=== PATIENT | female | born 1985 | race Caucasian/White ===

== ENCOUNTER → 2017-12-16 16:19 | Outpatient (CLI) | payer OTHER, SELFPAY ==
[2017-12-16 18:10] LABS: Mucous, Urine 0 SEEN /hpf (<or=2+)
[2017-12-16 18:42] LABS: Color, Urine Yellow (Yellow); Glucose, Dipstick Normal (Normal); Ketone-Dipstick Negative (Negative); Leukocyte Esterase-Dipstick 100 /ul (Negative); Nitrite-Dipstick Positive (Negative); Occult Blood-Urine 50 /ul (Negative); Protein-Dipstick Negative (Negative); Urine Bilirubin Dipstick Negative (Negative); Urine Clarity Cloudy (Clear); Urine Urobilinogen Normal (Normal); Urine pH 6.5 (5.0 - 8.0)
[2017-12-16 18:49] LABS: Bacteria 2+ /hpf (None Seen)
[2017-12-16 18:50] LABS: Squamous Epithelial Cells - UA 0-5 SEEN /hpf (5-10); White Blood Cells 10-25 SEEN /hpf (0-5)
[2017-12-16 18:51] LABS: Red Blood Cells-Urine 0-5 SEEN /hpf (0-5)
== END ==
PROVIDERS: Family Provider Family Medicine; PCP Family Medicine; Visit Provider Physician Assistant Surgical
DX: R35.0 Frequency of micturition (principal)
CPT/HCPCS: 81001; 87077; 87086; 87088; 87186

== ENCOUNTER → 2018-02-27 11:52 | Outpatient (CLI) | payer OTHER, SELFPAY ==
[2018-02-27 17:10] LABS: Thyroid Stim Hormone (TSH) 0.75 uIU/mL (0.358-3.74)
== END ==
PROVIDERS: Family Provider Family Medicine; PCP Family Medicine; Visit Provider Family Medicine
DX: F41.9 Anxiety disorder, unspecified (principal); F40.01 Agoraphobia with panic disorder
CPT/HCPCS: 36415; 84439; 84443

== ENCOUNTER 2018-12-11 18:58 | Emergency (ER) | payer OTHER, SELFPAY ==
[2018-12-11 18:58] VITALS: BP 115/78; PULSE 85; RESP 15; TEMP 37.8; O2SAT 98; BMI 28.8
--- NOTE | 2018-12-11 21:00 | CT_ITS ---
STUDY: CT ABDOMEN AND PELVIS WITHOUT CONTRAST REASON FOR EXAM: Female, 33 years old. Lower back pain. Nausea. Left abdominal pain and fever. RADIATION DOSAGE (If Supplied By Facility): CTDIvol = ( 15.16 ) mGy, DLP = ( 999.45 ) mGycm TECHNIQUE: Transaxial images were obtained from the dome of the diaphragm to the symphysis pubis without oral contrast, and without intravenous contrast. Sagittal and coronal images were reconstructed. Individualized dose optimization techniques were used for this CT. COMPARISON: October 12, 2016. FINDINGS: The visualized lung bases are unremarkable. The visualized portions of the heart are within normal limits. Is a prominent left lateral lobe liver which approximates under side of the left hemidiaphragm. This is a normal variant. The liver is otherwise unremarkable. Normal gallbladder and extrahepatic biliary system. Normal spleen. Normal pancreas. Normal bilateral adrenal glands. Normal right kidney. Normal left kidney. Normal visualized stomach. Normal small intestine. Fluid is seen within the cecum and ascending colon. Feces is seen in the left colon. There is no evidence of obstruction. The appendix is visualized and appears normal. Normal abdominal aorta. Normal inferior vena cava. Normal retroperitoneum. Normal urinary bladder. Uterus is anteverted and midline. Normal right ovary. There is a irregular shaped 1.9 x 1.9 x 1.3 cm left ovarian cyst. There is no pelvic lymphadenopathy. No free air or free fluid is seen within the peritoneal cavity. Normal abdominal wall. Normal osseous structures. CT/Abdomen/Pelvis W IV Cont ONLY IMPRESSION: Left ovarian cyst. The study is otherwise unremarkable and unchanged. Electronically Signed: Nile Sheridan DO at 22:38 EDT Tel [phone], Service support ,
--- NOTE | 2018-12-11 21:01 | ED.VIS.GEN ---
History of Present Illness Chief Complaint: Back Informant: Patient Onset: Today Context: - - awoke w/ sx Timing: Continuous - progressively worse throughout the day. not colicky. Quality: ache Location: across low back Current Severity: Severe Maximum Severity: Severe Worsened by: movement, certain positions Relieved by: remaining still in certain positions Associated Symptoms: nausea, chills Narrative: Patient had no injury, she denies any repetitive movements or lifting yesterday that could explain pain to her back. There is no radiation into her lower extremities or elsewhere, no saddle anesthesia, bowel or bladder dysfunction, but she is having some left-sided abdominal discomfort that started later after the back pain started worsening. She denies having any urinary symptoms or diarrhea, she has not vomited but has been nauseated. She had a fever here at triage but did not realize that she was having a fever at home. Denies a history of IV drug use. - Past Medical History (1) Depression Status: Chronic Past Medical History - Allergies and Home Meds Allergies/Adverse Reactions: Allergies diphenhydramine HCl [From Benadryl] Adverse Reaction (Verified 12/11/18 19:02) Other Primary Care Physician: Perry Soria MD [Primary Care Provider] - Smoking Status: Current every day smoker Drugs: None Review of Systems General: Reports: Chills, Malaise. Denies: Fever, Sweats Eyes: Denies: Visual changes - bilaterally, Diplopia ENT: Denies: Rhinorrhea, Sore throat Cardiovascular: Denies: Chest pain, Palpitations Respiratory: Denies: Dyspnea, Cough, Dyspnea on exertion Gastrointestinal: Reports: Abdominal pain, Nausea. Denies: Vomiting, Diarrhea, Melena, Hematochezia Genitourinary: Denies: Dysuria, Hematuria, Frequency Musculoskeletal: Reports: Back pain. Denies: Neck pain, Swelling, Extremity Pain Skin: Denies: Rash, Wounds Neurological: Denies: Headache, Weakness, Parasthesia, Numbness Physical Exam Vital Signs/Narrative: Vital Signs Temp Pulse Resp BP Pulse Ox 12/11/18 18:58 100.0 F H 85 15 115/78 98 Inital Vital Signs reviewed: Yes General: Well nourished, Well developed, No Acute Distress Head: Normocephalic, Atraumatic Eyes: Perrl, EOMI. Negative for: Scleral icterus ENT: Moist mucous membranes, No rhinorrhea Neck: Supple, Nontender Cardiovascular: Regular rate, Regular rhythm, No murmurs. Negative for: Tachycardia Respiratory: No distress, CTA bilaterally, Chest nontender Abdomen: Soft, Nontender, Nondistended, Normal bowel sounds, - - Negative Adonis, Demarco Grissom signs Back: Nontender, Normal Inspection, - - No rashes. Patient is able to reproduce/worsen her back pain as she actively sits up in bed.. Negative for: CVA tenderness, Spinal tenderness Extremities: Nontender, No edema Skin: Normal color, No rash, No Trauma Neurological: Alert, Oriented x3, Cranial nerves II-XII grossly intact, Normal Strength, Normal Sensation, Normal DTR, Normal Gait Psychological: Normal affect, Normal Mood Diagnostic/Tx/Re-eval Impressions Abdomen/Pelvis CT 12/11/18 21:00 IMPRESSION: Left ovarian cyst. The study is otherwise unremarkable and unchanged. Electronically Signed: Nile Sheridan DO at 22:38 EDT Tel [phone], Service support , 12/11/18 21:00 Abdomen/Pelvis W IV Cont ONLY [CT] Stat Laboratory Results 12/11/18 12/11/18 12/11/18 21:29 21:29 21:37 WBC 14.1 H RBC 4.60 Hgb 14.4 Hct 41.8 MCV 90.9 MCH 31.3 MCHC 34.4 RDW 13.4 RDW Differential 44.1 H Plt Count 276 MPV 9.4 Immature Gran % (Auto) 0.300 Neut % (Auto) 54.0 Lymph % (Auto) 37.5 [place] % (Auto) 6.2 Eos % (Auto) 1.6 Baso % (Auto) 0.4 Absolute Neuts (auto) 7.6 Absolute Lymphs (auto) 5.28 H Total Counted Not Reportable Differential Comment SEE COMMENT Diff Path Review May foll Platelet Estimate ADEQUATE Anisocytosis RARE Macrocytosis RARE Sodium 139 Potassium 3.5 Chloride 107 Carbon Dioxide 26.0 Anion Gap 6 BUN 9 Creatinine 0.64 Estim Creat Clear Calc 107.96 Est GFR (MDRD) Af Amer 137 Est GFR (MDRD) Non-Af 113 BUN/Creatinine Ratio 14.0 Glucose 87 Calcium 8.4 L Total Bilirubin 0.30 AST 16 ALT 27 Alkaline Phosphatase 58 Total Protein 7.4 Albumin 3.9 Globulin 3.5 Albumin/Globulin Ratio 1.1 Lipase 55 L Urine Color Yellow Urine Clarity Clear Urine pH 7.0 Ur Specific [place] 1.010 Urine Protein Negative Urine Glucose (UA) Normal Urine Ketones Negative Urine Occult Blood 25 H Urine Nitrite Negative Urine Bilirubin Negative Urine Urobilinogen Normal Ur Leukocyte Esterase 500 H Urine RBC 0-5 SEEN Urine WBC 10-25 SEEN Ur Squamous Epith Cells 0 SEEN Urine Bacteria 0 SEEN Urine Mucus 0 SEEN - Medical Decision Making Patient treated with Toradol and morphine, she is feeling much better. Urine shows significant indicators of infection. Culture was sent. She has a leukocytosis may be related to this, but her other labs are unremarkable and CT shows no evidence of perinephric stranding or obstructive uropathy. A left ovarian cyst was seen but I think this is probably incidental and not necessarily related to her pain since her abdomen/pelvis was nontender throughout, and there was no sign of free fluid/rupture. I discussed all this with her. She is comfortable going home, started on Bactrim and given a week's prescription. I suspect her back discomfort is probably due to referred pain from cystitis, it is notable that she really has not had any urinary symptoms. However, she has no neurologic symptoms to suggest a neurologic cause of her back discomfort. If she gets worse despite this treatment, she is encouraged to either follow-up or return. ED Disposition - Plan for ED Patient: Disposition: Home or Assisted Living Diagnosis: Low back pain, UTI (urinary tract infection) Instructions: ED UTI Cystitis Female Prescriptions: traMADol [Ultram] 50 mg PO Q4H PRN PRN 2 Days #10 tablet PRN Reason: Pain Sulfamethoxazole/Trimethoprim [Bactrim Ds Tablet] 1 each PO BID #14 tablet Referrals: Perry Soria MD [Primary Care Provider] - 3-5 Days
[2018-12-11] MEDS: Ondansetron 4 MG/2 ML Vial IV (21:28)
[2018-12-11] MEDS: 0.9% Normal Saline 1,000 ML 1000 ML IV (21:28)
[2018-12-11] MEDS: Ketorolac 30 MG/ML Syringe IV (21:29)
[2018-12-11] MEDS: Morphine 4 MG/ML Syringe IV (21:29)
[2018-12-11] MEDS: Acetaminophen 325 MG Tablet 650 MG PO (21:29)
[2018-12-11 21:40] LABS: Absolute Lymphocyte Count 5.28 X10^3/ul (0.83-4.51); Absolute Neutrophil Count 7.6 X10^3/uL (2.0-7.7); Basophil# 0.06 X10^3/uL; Basophil% 0.4 % (0-1); Eosinophil# 0.23 X10^3/uL; Eosinophils% 1.6 % (0-5); Hematocrit 41.8 % (37-47); Hemoglobin 14.4 g/dl (12.0-15.0); Lymphocyte # 5.28 X10^3/ul (4.0); Lymphocyte % 37.5 % (19-41); Mean Corp Hgb Conc 34.4 g/gl (32-36); Mean Corpuscular Hgb 31.3 pg (27.0-32.0); Mean Corpuscular Volume 90.9 fL (81-99); Mean Platelet Vol. 9.4 fl (6.2-12.0); Monocyte# 0.87 X10^3/uL; Monocyte% 6.2 % (0-10); Neutrophil # 7.61 X10^3/uL (2.7-7.7); Platelet Count 276 K/mm3 (150-450); RBC Distribution Width CV 13.4 % (11.6-14.6); RBC Distribution Width SD 44.1 fl (35.1-43.9); White Blood Count 14.1 K/mm3 (4.4-11.0)
[2018-12-11 21:41] LABS: Bacteria 0 SEEN /hpf (None Seen); Mucous, Urine 0 SEEN /hpf (<or=2+); Squamous Epithelial Cells - UA 0 SEEN /hpf (5-10)
[2018-12-11 21:50] LABS: Color, Urine Yellow (Yellow); Glucose, Dipstick Normal (Normal); Ketone-Dipstick Negative (Negative); Leukocyte Esterase-Dipstick 500 /ul (Negative); Nitrite-Dipstick Negative (Negative); Occult Blood-Urine 25 /ul (Negative); Protein-Dipstick Negative (Negative); Urine Bilirubin Dipstick Negative (Negative); Urine Clarity Clear (Clear); Urine Urobilinogen Normal (Normal)
[2018-12-11 21:54] LABS: Red Blood Cells-Urine 0-5 SEEN /hpf (0-5); White Blood Cells 10-25 SEEN /hpf (0-5)
[2018-12-11 21:57] LABS: Differential Indicated SCAN CRITERIA MET; POSITIVE COUNT NO; POSITIVE DIFFERENTIAL YES; POSITIVE MORPHOLOGY YES
[2018-12-11 22:11] LABS: ALB/GLOB Ratio 1.1 RATIO (0.9-2.4); AST(SGOT) 16 U/L (15-37); Alanine Aminotransfer ALT/SGPT 27 U/L (13-56); Albumin, Serum 3.9 g/dL (3.2-5.0); Alkaline Phosphatase 58 U/L (45-117); Anion Gap 6 (5-15); BUN 9 mg/dL (7-18); Calcium,Total 8.4 mg/dL (8.5-10.1); Chloride 107 mmol/L (98-107); Creatinine, Serum 0.64 mg/dL (0.55-1.02); EST Glomerular Filtration Rate 113 mL/min (>60); Est Glom Filt Rate - Afr Amer 137 mL/min (>60); Estimated Creatinine Clearance 107.96 ml/min; Globulin 3.5 g/dL (2.2-4.2); Glucose 87 mg/dL (74-106); Lipase 55 U/L (73-393); Potassium 3.5 mmol/L (3.5-5.1); Protein, Total 7.4 g/dL (6.4-8.2); Sodium Level 139 mmol/L (136-145)
[2018-12-11 22:27] LABS: Anisocytosis RARE; Macrocytosis RARE; Platelet Estimate ADEQUATE (ADEQ)
[2018-12-11 23:12] VITALS: RESP 18; O2SAT 98
[2018-12-11] MEDS: Smz/Tmp Ds Tablet 1 TABLET PO (23:50)
[2018-12-11 23:51] VITALS: BP 111/76; PULSE 89; RESP 16; O2SAT 97
[2018-12-14 14:39] LABS: Pathologist Review Reviewed
== END 2018-12-12 00:13 | disposition home or self-care (01) ==
PROVIDERS: Emergency Provider Emergency Medicine; Family Provider Family Medicine; PCP Family Medicine
DX: N39.0 Urinary tract infection, site not specified (principal); M54.5 Low back pain; R11.0 Nausea; F32.9 Major depressive disorder, single episode, unspecified; F17.200 Nicotine dependence, unspecified, uncomplicated; Z79.899 Other long term (current) drug therapy
CPT/HCPCS: 74177; 80053; 81001; 83690; 85025; 87086; 87088; 96361; 96374; 96375; 99285; J7030; Q9967; A4216; J2405

== ENCOUNTER → 2018-12-25 09:46 | Outpatient (CLI) | payer OTHER, SELFPAY ==
[2018-12-11 18:58] VITALS: BMI 28.8
--- NOTE | 2018-12-25 09:51 | US_ITS ---
STUDY: RENAL ULTRASOUND - COMPLETE REASON FOR EXAM: Female, 33 years old. Renal stones, flank pain TECHNIQUE: Ultrasound evaluation of the kidneys was performed with real-time and static saez-scale imaging. COMPARISON: CT abdomen and pelvis 12/11/2018, 10/12/2016 FINDINGS: RIGHT KIDNEY: 12.4 x 4.1 x 5.3 cm. Normal cortical thickness 1 cm. Normal cortical echotexture. There is no mass, cyst, calculus or hydronephrosis. LEFT KIDNEY: 13.1 x 5.2 x 5.6 cm. Normal cortical thickness 1.3 cm, normal cortical echotexture. There is no mass, cyst, calculus or hydronephrosis. BLADDER: Normal in caliber, contour and wall thickness. US/Kidney and Bladder IMPRESSION: Normal sonographic features of each kidney. There is no evidence of urolithiasis or hydronephrosis. On the prior CT study of 12/11/2017 there was no evidence of urolithiasis or hydronephrosis. The kidneys were normal in morphology with symmetric nephrograms. Electronically Signed: Benson Jacobs MD at 17:47 EDT Tel , Service support ,
== END ==
PROVIDERS: Family Provider Family Medicine; PCP Family Medicine; Referring Provider Family Medicine; Visit Provider Family Medicine
DX: N10 Acute pyelonephritis (principal); M54.5 Low back pain
CPT/HCPCS: 76770

== ENCOUNTER → 2020-08-02 17:28 | Outpatient (CLI) | payer OTHER, SELFPAY | PROVIDERS: PCP Family Medicine; Referring Provider Family Medicine; Visit Provider Family Medicine | DX: Z03.818 Encounter for observation for suspected exposure to other biological agents ruled out (principal); R53.83 Other fatigue; R51.9 Headache, unspecified | CPT/HCPCS: 87635; C9803; U0003 ==

== ENCOUNTER → 2020-10-11 13:01 | Outpatient (CLI) | payer OTHER, SELFPAY ==
[2020-10-11 11:34] VITALS: BMI 25.2
[2020-10-14 14:23] LABS: HPV APTIMA, High Risk Negative (Negative)
== END ==
PROVIDERS: PCP Family Medicine; Referring Provider Nurse Practitioner Women's Health; Visit Provider Nurse Practitioner Women's Health
DX: Z12.4 Encounter for screening for malignant neoplasm of cervix (principal)
CPT/HCPCS: 87624; 88175; G0145

== ENCOUNTER → 2021-06-12 | Outpatient (CLI) | payer OTHER, SELFPAY | END | disposition home or self-care (01) | LOC: LABSPEC 10:22 | PROVIDERS: PCP Family Medicine; Referring Provider Physician Assistant Surgical; Visit Provider Physician Assistant Surgical | DX: Z11.52 Encounter for screening for COVID-19 (principal) | CPT/HCPCS: 87635; U0005; U0003 ==

== ENCOUNTER → 2022-09-12 | Outpatient (CLI) | payer OTHER, SELFPAY ==
[2022-09-12 12:21] LABS: Absolute Lymphocyte Count 1.87 X10^3/uL (0.83-4.51); Absolute Neutrophil Count 4.1 X10^3/uL (2.0-7.7); Basophil# 0.07 X10^3/uL; Basophil% 1.1 % (0-1); Eosinophil# 0.18 X10^3/uL; Eosinophils% 2.7 % (0-5); Hematocrit 39.5 % (37-47); Hemoglobin 13.2 g/dL (12.0-15.0); Lymphocyte # 1.87 X10^3/ul (0.83-4.51); Lymphocyte % 28.4 % (19-41); Mean Corp Hgb Conc 33.4 g/dL (32-36); Mean Corpuscular Hgb 30.1 pg (27.0-32.0); Mean Corpuscular Volume 90.2 fL (81-99); Mean Platelet Vol. 9.3 fl (6.2-12.0); Monocyte# 0.36 X10^3/uL; Monocyte% 5.5 % (0-10); NRBC Flagged by Analyzer 0 % (0-5); Neutrophil # 4.08 X10^3/uL (2.7-7.7); Platelet Count 333 K/mm3 (150-450); RBC Distribution Width CV 12.3 % (11.6-14.6); RBC Distribution Width SD 40.4 fl (35.1-43.9); Red Blood Count 4.38 M/mm3 (4.2-5.4); White Blood Count 6.6 K/mm3 (4.4-11.0)
[2022-09-12 12:46] LABS: AST(SGOT) 14 U/L (15-37); Alanine Aminotransfer ALT/SGPT 27 U/L (13-56); Albumin, Serum 3.8 g/dL (3.2-5.0); Alkaline Phosphatase 53 U/L (45-117); Anion Gap 8 (5-15); BUN 14 mg/dL (7-18); BUN/Creat Ratio 17.5 RATIO (10-20); Calcium,Total 8.8 mg/dL (8.5-10.1); Chloride 106 mmol/L (98-107); Cholesterol 235 mg/dL (200); EST Glomerular Filtration Rate 86 mL/min (>60); Est Glom Filt Rate - Afr Amer 104 mL/min (>60); Globulin 3.7 g/dL (2.2-4.2); Glucose 101 mg/dL (74-106); High Density Lipoprotein 65 mg/dL; Potassium 3.9 mmol/L (3.5-5.1); Protein, Total 7.5 g/dL (6.4-8.2); Sodium Level 141 mmol/L (136-145); Thyroid Stim Hormone (TSH) 0.43 uIU/mL (0.358-3.74); Triglycerides 84 mg/dL; Very Low Density Lipoprotein 17 mg/dL (5-40)
== END | disposition home or self-care (01) ==
LOC: BFHLAB 10:50
PROVIDERS: PCP Family Medicine; Visit Provider Family Medicine
DX: Z00.00 Encounter for general adult medical examination without abnormal findings (principal); F41.9 Anxiety disorder, unspecified; F10.11 Alcohol abuse, in remission
CPT/HCPCS: 36415; 80053; 80061; 84443; 85025

== ENCOUNTER 2023-03-28 10:54 | Emergency (ER) | payer OTHER, SELFPAY ==
[2023-03-28 10:55] VITALS: BP 115/87; PULSE 102; RESP 16; TEMP 36.1; O2SAT 100; BMI 27.4
[2023-03-28 11:11] VITALS: BP 118/74; PULSE 91; RESP 18; O2SAT 99
--- NOTE | 2023-03-28 12:16 | EKG12_ITS ---
Test Reason : SYNCOPE Blood Pressure : / mmHG Vent. Rate : 088 BPM Atrial Rate : 088 BPM P-R Int : 138 ms QRS Dur : 094 ms QT Int : 350 ms P-R-T Axes : 047 014 037 degrees QTc Int : 423 ms Normal sinus rhythm Incomplete right bundle branch block Borderline ECG Confirmed by AMI MCDONALD, CAROLINE ([id number]), newspaper editor managing HERMAN MEHTA ([id number]) on 03/31/2023 8:36:59 AM Referred By: PL/ES Confirmed By:KANDI MUELLER MD
--- NOTE | 2023-03-28 12:23 | RAD_ITS ---
STUDY: X-RAY CHEST REASON FOR EXAM: Female, 37 years old. SYNCOPE TECHNIQUE: Single AP portable view of the chest. COMPARISON: None. FINDINGS: EKG electrodes are seen. The lungs are clear and expanded. There is no demonstrated pleural abnormality. Normal size heart. Normal mediastinum and teri. Normal visualized pulmonary arteries. Normal visualized aortic arch and descending thoracic aorta. Normal visualized thoracic spine. Normal visualized ribs, clavicles, and shoulders. There is no demonstrated abnormality of the visualized soft tissue structures of the upper abdomen. RAD/Chest 1 View (Portable) IMPRESSION: Normal x-ray examination of the chest. Electronically Signed: José Miguel Hester MD at 12:48 EDT ,
[2023-03-28 12:31] LABS: Absolute Lymphocyte Count 1.46 X10^3/uL (0.83-4.51); Absolute Neutrophil Count 8.9 X10^3/uL (2.0-7.7); Basophil# 0.07 X10^3/uL; Basophil% 0.6 % (0-1); Eosinophil# 0.04 X10^3/uL; Eosinophils% 0.4 % (0-5); Hematocrit 44.1 % (37-47); Hemoglobin 14.4 g/dL (12.0-15.0); Lymphocyte # 1.46 X10^3/ul (0.83-4.51); Lymphocyte % 13.5 % (19-41); Mean Corp Hgb Conc 32.7 g/dL (32-36); Mean Corpuscular Hgb 29.8 pg (27.0-32.0); Mean Corpuscular Volume 91.1 fL (81-99); Mean Platelet Vol. 9.5 fl (6.2-12.0); Monocyte# 0.39 X10^3/uL; Monocyte% 3.6 % (0-10); NRBC Flagged by Analyzer 0 % (0-5); Neutrophil # 8.86 X10^3/uL (2.7-7.7); Neutrophil % 81.6 % (47-70); Platelet Count 331 K/mm3 (150-450); RBC Distribution Width CV 12.3 % (11.6-14.6); RBC Distribution Width SD 41.3 fl (35.1-43.9); Red Blood Count 4.84 M/mm3 (4.2-5.4); White Blood Count 10.9 K/mm3 (4.4-11.0)
[2023-03-28 12:37] LABS: Internal QC Validated? YES +Cl - CLEAR BKGD; Pregnancy, Serum, hCG Quali. NEGATIVE Negative
[2023-03-28 12:41] LABS: Anion Gap 5 (5-15); BUN 13 mg/dL (7-18); BUN/Creat Ratio 15.9 RATIO (10-20); Calcium,Total 9.1 mg/dL (8.5-10.1); Chloride 108 mmol/L (98-107); Creatinine, Serum 0.82 mg/dL (0.55-1.02); EST Glomerular Filtration Rate 84 mL/min (>60); Est Glom Filt Rate - Afr Amer 101 mL/min (>60); Estimated Creatinine Clearance 81.11 ml/min; Glucose 94 mg/dL (74-106); Potassium 3.4 mmol/L (3.5-5.1); Sodium Level 139 mmol/L (136-145)
--- NOTE | 2023-03-28 12:43 | EDS_ITS ---
HPI History of Present Illness Chief Complaint: Syncope Informant: patient Onset/Context/Timing Onset: Weeks (2) Context: Gradual Onset Timing: Continuous Quality: Lightheaded Location: Generalized Worsened by: Nothing Relieved by: Nothing Narrative Narrative: Patient presents with a syncopal episode that occurred today and 2 days ago. Patient states she has been feeling lightheaded and off for the past 2 weeks. Patient states it is gradually gotten worse. Patient states nothing makes it worse and nothing makes it better. Patient states she feels like her heart is racing at times. Patient also admits to some pain in her chest at times. Patient admits to some nausea and vomiting. Patient denies any hematemesis or coffee-ground emesis. Patient denies any diarrhea or abdominal pain. Patient denies any shortness of breath or cough. Patient admits to some blurred vision at times. [facility] Medical History Alcohol abuse Back problem Chronic midline thoracic back pain Chronic neck pain PEDRO (generalized anxiety disorder) Intertrigo Macromastia Shoulder pain Home Medications venlafaxine 150 mg capsule,extended release 24 hr (Effexor XR) 150 mg PO DAILY 10/11/20 [History Last Taken Unknown] trazodone 50 mg tablet 50 mg PO DAILY 10/01/21 [History Last Taken Unknown] mirtazapine 15 mg tablet See Rx Instructions .Route .COMPLEX #90 tabs 02/19/23 [Rx Last Taken Unknown] norethindrone (contraceptive) 0.35 mg tablet (Patti) 0.35 mg PO QDAY #84 tabs 03/27/23 [Rx Last Taken Unknown] Allergy/AdvReac Type Severity Reaction Status Date / Time diphenhydramine HCl AdvReac Other Verified 03/28/23 10:57 [From Benadryl] Family History Other Alcohol abuse Anxiety Bowel disease Colon cancer Depression Social History household members: spouse and children number of children: 2 current occupational status: employed current occupation: [employer] history of recent travel: No sexually active: Yes Smoking Status: Former smoker Electronic Cigarette Use: with nicotine alcohol intake: former substance use type: does not use what type of physical activity do you participate in: aerobics and weight training seatbelt use: always do you feel safe at home: Yes additional social history: - Calvin Does Take Aspirin As Needed Does Take Ibuprofen As Needed ROS ROS ED Constitutional Constitutional ED: Denies chills or fever(s) Eyes Eyes: Reports blurry vision; Denies diplopia ENT ENT ED: Denies rhinorrhea or sore throat Cardiovascular Cardiovascular: Reports chest pain, palpitations and racing heartbeat Respiratory/Chest Respiratory/Chest: Denies cough or dyspnea Gastrointestinal Gastrointestinal: Reports nausea and vomiting Genitourinary Genitourinary ED: Denies dysuria or hematuria Musculoskeletal Musculoskeletal: Denies back pain or neck pain Integumentary Denies abscess or rash Neurologic Neurologic: Denies headache(s) or weakness Allergic/Immunologic Allergic/Immunologic ED: Denies mouth swelling or urticaria EXAM Physical Exam Const Vital Signs: 03/28/23 10:55 03/28/23 11:11 03/28/23 13:05 Temperature 97 F L Temperature Source Temporal Pulse Rate 102 H 91 Pulse Rate [Lying] 72 Pulse Rate [Sitting (for 1 minute prior to obtaining)] 82 Pulse Rate [Standing (for 1 minute prior to obtaining)] 83 Respiratory Rate 16 18 Blood Pressure 115/87 H 118/74 Blood Pressure [Lying] 108/71 Blood Pressure [Sitting (for 1 minute prior to obtaining)] 117/86 H Blood Pressure [Standing (for 1 minute prior to obtaining)] 118/96 H Blood Pressure Mean 96 88 Blood Pressure Mean [Lying] 83 Blood Pressure Mean [Sitting (for 1 minute prior to obtaining)] 96 Blood Pressure Mean [Standing (for 1 minute prior to obtaining)] 103 Pulse Ox 100 99 Oxygen Delivery Method Room Air Room Air 03/28/23 14:12 Temperature Temperature Source Pulse Rate 81 Pulse Rate [Lying] Pulse Rate [Sitting (for 1 minute prior to obtaining)] Pulse Rate [Standing (for 1 minute prior to obtaining)] Respiratory Rate 21 H Blood Pressure 119/76 Blood Pressure [Lying] Blood Pressure [Sitting (for 1 minute prior to obtaining)] Blood Pressure [Standing (for 1 minute prior to obtaining)] Blood Pressure Mean 90 Blood Pressure Mean [Lying] Blood Pressure Mean [Sitting (for 1 minute prior to obtaining)] Blood Pressure Mean [Standing (for 1 minute prior to obtaining)] Pulse Ox 98 Oxygen Delivery Method Room Air Positive well nourished and well developed General Appearance ED: well developed and NAD HEENT Reports moist mucous membranes Neck supple and no JVD Resp normal respiratory effort and clear to auscultation bilaterally Cardio regular rate, regular rhythm and no murmurs GI normal to inspection, nondistended, normoactive bowel sounds and non-tender Palpation: soft Extremity normal to inspection General Extremety ED: Negative for edema or tenderness General Extremity: Negative for edema Neuro oriented x3, CN's II-XII intact bilaterally and no sensory deficits noted Sensorium / Orientation: alert Motor Exam: strength 5/5 throughout Psych mental status grossly normal Skin no rashes or lesions noted MDM MDM MDM Narrative Medical decision making narrative: Differential diagnosis includes cardiac dysrhythmia, cardiac ischemia, dehydration, electrolyte abnormality, ectopic , pulmonary embolism, urinary tract infection, viral infection, and pneumonia. Chest x-ray will be obtained to assess for pneumonia. EKG will be obtained to assess for cardiac dysrhythmia and cardiac ischemia. CBC will be obtained to assess for leukocytosis and anemia. Basic metabolic profile will be obtained to assess for electrolyte abnormality and renal function. Serum hCG will be obtained to assess for . High-sensitivity troponin will be obtained to assess for cardiac ischemia. D-dimer will be obtained to assess for pulmonary embolism. Urinalysis will be obtained to assess for urinary tract infection. COVID-19 rapid antigen will be obtained to assess for COVID-19 infection. Influenza A and influenza B antigens will be obtained to assess for influenza infection. Lab Data Attestation: I reviewed the patient's lab results. Lab results narrative: CBC was reviewed and was within normal limits. Basic metabolic profile was reviewed and was within normal limits. D-dimer was reviewed and was less than 0.27. High-sensitivity troponin was reviewed and was less than 3. Serum hCG was reviewed and was negative. COVID-19 rapid antigen was reviewed and was negative. Influenza A and influenza B antigens were reviewed and were negative. Urinalysis was reviewed. There were greater than 100 red blood cells and occult blood 250. There is no evidence of urinary tract infection. Labs: Laboratory Results - last 24 hr 03/28/23 03/28/23 11:09 13:30 WBC 10.9 RBC 4.84 Hgb 14.4 Hct 44.1 MCV 91.1 MCH 29.8 MCHC 32.7 RDW Std Deviation 41.3 RDW Coeff of Tonya 12.3 Plt Count 331 MPV 9.5 Immature Gran % (Auto) 0.300 Neut % (Auto) 81.6 H Lymph % (Auto) 13.5 L [place] % (Auto) 3.6 Eos % (Auto) 0.4 Baso % (Auto) 0.6 Absolute Neuts (auto) 8.9 H Absolute Lymphs (auto) 1.46 Nucleated RBC % 0 D-Dimer Quant (PE/DVT) < 0.27 L Sodium 139 Potassium 3.4 L Chloride 108 H Carbon Dioxide 26.0 Anion Gap 5 BUN 13 Creatinine 0.82 Estim Creat Clear Calc 81.11 Est GFR (MDRD) Af Amer 101 Est GFR (MDRD) Non-Af 84 BUN/Creatinine Ratio 15.9 Glucose 94 Calcium 9.1 Troponin I High Sens < 3 L Serum , Qual NEGATIVE Urine Color SEE COMMENT BELOW Urine Clarity Cloudy Urine pH 8.0 Ur Specific [place] 1.015 Urine Protein 100 H Urine Glucose (UA) Normal Urine Ketones 5 H Urine Occult Blood 250 H Urine Nitrite Negative Urine Bilirubin Negative Urine Urobilinogen Normal Ur Leukocyte Esterase 100 H Urine RBC > 100 SEEN Urine WBC 0 SEEN Ur Squamous Epith Cells 0 SEEN Urine Bacteria 0 SEEN Urine Mucus 0 SEEN Radiography Chest X-Ray - ED: 1 View, Read by ED Physician, Read by Radiologist and No Acute Disease Diagnostic Testing: Clinical Impression(s) from Imaging Studies Chest X-Ray 03/28/23 12:23 IMPRESSION: Normal x-ray examination of the chest. Electronically Signed: José Miguel Hester MD at 12:48 EDT , Portable 1 view chest x-ray was obtained. On my independent interpretation, lung bonilla are clear. There is normal cardiac silhouette. Bony thorax is normal. There is no acute process noted. Radiologist also interpreted the x- ray and agrees. EKG Initial EKG: Attestation: I personally reviewed and interpreted this EKG as follows: Interpretation: Sinus Rhythm (88) and No Acute Injury Pattern Comments: EKG was obtained. On my independent interpretation, it showed a normal sinus rhythm with a rate of 88. [place] interval, QRS interval, and QTc intervals were all normal. [place] was normal. There are no acute ST or T wave changes. Prior EKG tracings: not available for review Prior: No Prior Treatment and Re-Evaluation :: Orthostatic vital signs were obtained and were within normal limits. Patient was advised of her findings. Patient was instructed to follow-up with her primary care physician for further evaluation. Patient was instructed drink plenty of fluids. Patient understood and was agreeable with the plan. All questions were answered. Discharge Plan Triage Chief Complaint: Syncope ED Provider: Leighton Tanner Dx/Rx/DC Orders Clinical Impression: Vapes nicotine containing substance, Syncope and collapse Instructions: ED Fainting, Uncertain Cause Prescriptions: No Action venlafaxine [Effexor XR] 150 mg capsule,extended release 24hr 150 mg PO DAILY trazodone 50 mg tablet 50 mg PO DAILY norethindrone (contraceptive) [Patti] 0.35 mg tablet 0.35 mg PO QDAY Qty: 84 4RF Rx Instructions: start day 1 of menstrual cycle mirtazapine 15 mg tablet See Rx Instructions .ROUTE .COMPLEX Qty: 90 0RF Dose Instruction: take 1 tablet by mouth at bedtime Rx Instructions: take 1 tablet by mouth at bedtime Primary Care Provider: Roxy Barrios Referrals: Roxy Barrios MD [Primary Care Provider] - 5-7 Days Disposition Disposition: Home, Self Care
[2023-03-28 13:05] VITALS: BP 108/71; BP 117/86; BP 118/96; PULSE 72; PULSE 82; PULSE 83
[2023-03-28 13:20] LABS: D-Dimer Quantitative (DVT/PE) < 0.27 FEU/ug/m (0.27-0.49)
[2023-03-28 13:24] LABS: Troponin-I HS < 3 pg/mL (3.0-54.0)
[2023-03-28 13:38] LABS: Bacteria 0 SEEN /hpf (None Seen); Mucous, Urine 0 SEEN /hpf (<or=2+); Squamous Epithelial Cells - UA 0 SEEN /hpf (5-10); White Blood Cells 0 SEEN /hpf (0-5)
[2023-03-28 13:44] LABS: Glucose, Dipstick Normal (Normal); Ketone-Dipstick 5 mg/dl (Negative); Leukocyte Esterase-Dipstick 100 /ul (Negative); Nitrite-Dipstick Negative (Negative); Occult Blood-Urine 250 /ul (Negative); Protein-Dipstick 100 mg/dl (Negative); Specific Gravity, Urine 1.015 (1.002-1.030); Urine Bilirubin Dipstick Negative (Negative); Urine Clarity Cloudy (Clear); Urine Urobilinogen Normal (Normal)
[2023-03-28 13:50] LABS: Color, Urine SEE COMMENT BELOW (Yellow)
[2023-03-28 13:51] LABS: Red Blood Cells-Urine > 100 SEEN /hpf (0-5)
[2023-03-28 14:12] VITALS: BP 119/76; PULSE 81; RESP 21; O2SAT 98
[2023-03-28 14:26] VITALS: BP 119/76; PULSE 88
== END 2023-03-28 14:30 | disposition home or self-care (01) ==
PROVIDERS: Emergency Provider Emergency Medicine; PCP Family Medicine; Visit Provider Emergency Medicine
DX: R55 Syncope and collapse (principal); R11.2 Nausea with vomiting, unspecified; Z20.822 Contact with and (suspected) exposure to COVID-19; F17.290 Nicotine dependence, other tobacco product, uncomplicated
CPT/HCPCS: 71045; 80048; 81001; 84484; 84703; 85025; 85379; 87428; 93005; 99284; A4216

== ENCOUNTER 2023-04-05 07:32 | Emergency (ER) | payer OTHER, SELFPAY ==
[2023-04-05 07:34] VITALS: BP 120/98; PULSE 111; RESP 14; TEMP 36.3; O2SAT 98; BMI 27.5
--- NOTE | 2023-04-05 07:36 | EDS_ITS ---
HPI History of Present Illness Chief Complaint: Anxiety [facility] Medical History Alcohol abuse Back problem Chronic midline thoracic back pain Chronic neck pain PEDRO (generalized anxiety disorder) Intertrigo Macromastia Shoulder pain Home Medications venlafaxine 150 mg capsule,extended release 24 hr (Effexor XR) 150 mg PO DAILY 10/11/20 [History Last Taken Unknown] trazodone 50 mg tablet 50 mg PO DAILY 10/01/21 [History Last Taken Unknown] mirtazapine 15 mg tablet See Rx Instructions .Route .COMPLEX #90 tabs 02/19/23 [Rx Last Taken Unknown] norethindrone (contraceptive) 0.35 mg tablet (Patti) 0.35 mg PO QDAY #84 tabs 03/27/23 [Rx Last Taken Unknown] hydroxyzine HCl 25 mg tablet 25 mg PO TID PRN anxiety 7 days #21 tabs 04/05/23 [Rx Last Taken Unknown] ondansetron 4 mg disintegrating tablet 4 mg PO Q8H PRN nausea and vomiting 7 days #21 tabs 04/05/23 [Rx Last Taken Unknown] Allergy/AdvReac Type Severity Reaction Status Date / Time No Known Allergies Allergy Verified 04/05/23 07:57 Family History Other Alcohol abuse Anxiety Bowel disease Colon cancer Depression Social History household members: spouse and children number of children: 2 current occupational status: employed current occupation: [employer] history of recent travel: No sexually active: Yes Smoking Status: Current every day smoker tobacco type: cigarettes Electronic Cigarette Use: with nicotine alcohol intake: former substance use type: does not use what type of physical activity do you participate in: aerobics and weight training seatbelt use: always do you feel safe at home: Yes additional social history: - Calvin Does Take Aspirin As Needed Does Take Ibuprofen As Needed EXAM Physical Exam Const Vital Signs: 04/05/23 07:34 Temperature 97.4 F L Temperature Source Temporal Pulse Rate 111 H Respiratory Rate 14 Blood Pressure 120/98 H Blood Pressure Mean 105 Pulse Ox 98 Oxygen Delivery Method Room Air MDM MDM MDM Narrative Medical decision making narrative: HISTORY OF PRESENT ILLNESS: 37-year-old female here with concern for anxiety and syncope. She states been increasing anxious for the last several weeks. She does not state a specific reason. She denies any auditory or visual hallucinations. Denies any suicidal homicidal ideation. States she became nauseous this morning and started dry heaving/vomiting. She notes as she was doing this she transiently lost consciousness. She did not fall or hit her head. There is no trauma reported. Denies any chest pain prior to this. No headache, no abdominal pain noted. The patient denies recent surgery in the last 4 weeks or immobilization in the last 3 days, denies previous diagnosis of DVT or PE, hemoptysis, unilateral leg swelling or malignancy with treatment the last 6 months. Notes use of estrogen- based oral contraceptive. No recent bleeding diathesis. Patient denies any urinary complaints. She is not sexually active. Patient denies sudden onset of pain, no tearing sensation, no migratory symptoms, no new numbness, weakness or loss of sensation. Patient denies family history or personal history of Connective tissue disorders (Marfan's Syndrome, Mary Danlos etc). Denies any drug use, alcohol use. REVIEW OF SYSTEMS: Pertinent positives: Anxiety, syncope Pertinent negatives: Chest pain, shortness of breath PHYSICAL EXAM: Nursing triage notes reviewed, Vital signs reviewed Constitutional: please see mdm HENT: MMM Eyes: Pupils equal round and reactive to light, Extraocular muscles intact Neck: No stridor, no JVD, full neck ROM Lungs: Clear to auscultation, No wheezing or rales. No increased work of breathing, no conversational dyspnea, no accessory muscle use, no nasal flaring. No respiratory distress noted Heart: fast rate and rhythm, No murmurs, No rubs and No gallops, 2+ distal pulses (radial, femoral, posterior tibial) in all extremities Abdomen: Soft, there is no tenderness, rigidity, rebound or guarding, no obvious peritoneal signs, no palpable pulsatile abdominal masses, no auscultated abdominal bruit : No CVAT Extremities: No edema Neuro: Alert and oriented x3, neuro exam at baseline, cranial nerves II through XII are intact. No pain with extraocular muscle movement. There is negative test of skew. Normal speech. 5 of 5 strength in upper and lower extremities in flexion extension. Intact sensation to light touch in upper and lower extremity dermatomes. No truncal or extremity ataxia. No dysdiadochokinesia. Normal gait. 2+ reflexes. No meningeal signs. Negative Babinski. NIH of 0 Skin: No rash or lesions noted Psych: Anxious and tearful, goal-directed thought process, not tangential thought, not responding to internal stimuli. MEDICAL DECISION MAKING: Chief Complaint: External records reviewed: Prior ED visit reviewed: Seen on 03/28/2023 approximately 8 days ago for similar symptoms. At that time practitioner obtained labs which showed no evidence of significant anemia, systemic inflammation, D-dimer was negative, there was very mild hypokalemia potassium 3.4 otherwise no significant electrolyte abnormalities, there is no anion gap, no acute kidney injury, troponin was negative, patient was not , the patient had some mild urinary inflammation, chest x-ray showed no evidence of pneumothorax pneumonia or heart failure, EKG was within normal limits, orthostatic vital signs were present, she was discharged given negative work-up young age and low risk factor profile. Factors affecting care: Anxiety Social determinants of health: Former alcohol abuser History obtained from others: none Consults: none ALL IMAGES (IF OBTAINED) HAVE BEEN PERSONALLY REVIEWED AND INTERPRETED BY MYSELF. MDM Narrative: Patient was hemodynamically stable, afebrile, nontoxic-appearing. Initially tachycardic (this resolved with no intervention). She did appear anxious and tearful. She denies any suicidal ideation, homicidal ideation, auditory visual hallucination. Denies any other drug use such as cocaine or methamphetamine abuse. She had no focal cardiopulmonary findings no focal neuro findings. She did not complain of headache, focal numbness weakness. She not complain of abdominal pain. She her clinical exam is not suggestive of subarachnoid hemorrhage, ectopic , severe arrhythmia, dehydration, PE, pneumothorax I considered the following differential diagnosis: Anxiety, arrhythmia, ACS, PE, dissection, subarachnoid hemorrhage, ectopic , dehydration, electrolyte abnormality or anemia. The patient did report nausea vomiting however this occurred this morning she was well-hydrated on exam of a low suspicion for severe dehydration or electrolyte abnormality this time. No bleeding diathesis noted to suggest anemia. Patient had no chest pain and a low risk Wells score which makes PE less likely. She had no pulse deficits, ripping or tearing chest pain or risk factors for aortic dissection. She had no severe abdominal pain, had a benign belly exam, and she is not sexually active making ectopic less likely. I did obtain EKG to rule out signs of arrhythmia, WPW, ARVD, ACS, pericarditis or stigmata of right heart strain. EKG showed normal sinus rhythm, normal axis, normal intervals, no STEMI, no right heart strain, no WPW ARVD or Brugada syndrome. Patient was treated with Ativan and Atarax. There is no indication for emergent psychiatric evaluation at this time given lack of suicidal ideation, homicidal nation and auditory visual loose Nations. Patient does contract for safety. Discharged on Atarax. Attempted social work consult for close outpatient IOP therapy however social work was unavailable at this time the emergency department. Will give close outpatient follow-up with Dr. Yuen (psychiatry). The patient and/or family, caregivers express understanding. The patient and/or family, caregivers agrees with the plan. Shared decision making: I will have a discussion with the patient and or visitors regarding risk/benefits of further testing or admission. They will be made aware of of the risk/benefits inherent in this decision they will be given the opportunity to voice understanding. Total critical care time today provided was at least 0 minutes. This excludes separately billable procedures. Critical care time (if documented) is secondary to the patient having high probability of clinically significant/life threatening deterioration in the patient's condition which required my urgent intervention. Discharge Plan Triage Chief Complaint: Anxiety ED Provider: Benedicto Draper Dx/Rx/DC Orders Clinical Impression: PEDRO (generalized anxiety disorder), Nausea Instructions: Online Mental Health Support Grp, Journaling for Mental Health, ED Anxiety Reaction Prescriptions: New hydroxyzine HCl 25 mg tablet 25 mg PO TID PRN (Reason: anxiety) 7 Days Qty: 21 0RF ondansetron 4 mg tablet,disintegrating 4 mg PO Q8H PRN (Reason: nausea and vomiting) 7 Days Qty: 21 0RF No Action venlafaxine [Effexor XR] 150 mg capsule,extended release 24hr 150 mg PO DAILY trazodone 50 mg tablet 50 mg PO DAILY norethindrone (contraceptive) [Patti] 0.35 mg tablet 0.35 mg PO QDAY Qty: 84 4RF Rx Instructions: start day 1 of menstrual cycle mirtazapine 15 mg tablet See Rx Instructions .ROUTE .COMPLEX Qty: 90 0RF Dose Instruction: take 1 tablet by mouth at bedtime Rx Instructions: take 1 tablet by mouth at bedtime Primary Care Provider: Roxy Barrios Referrals: Margarito Yuen, [Med Staff - Team Primary Care Physician] - Activity Restrictions/Additional Instructions: Thank you for trusting us with your care today! Please take Atarax as needed for anxiety. You can take this medicine up to 3 times a day. Please take Zofran as needed for nausea. Please return to the emergency department if your symptoms change or worsen. Specifically if you develop suicidal thoughts, suicidal ideation, suicidal plans, if you start seeing or hearing things. Please follow with your psychiatrist for further outpatient evaluation and management. Disposition Disposition: Home, Self Care Discharge Date/Time: 04/05/23 08:18
--- NOTE | 2023-04-05 07:40 | EKG12_ITS ---
Test Reason : anxiety Blood Pressure : / mmHG Vent. Rate : 091 BPM Atrial Rate : 091 BPM P-R Int : 136 ms QRS Dur : 092 ms QT Int : 362 ms P-R-T Axes : 058 039 044 degrees QTc Int : 445 ms Normal sinus rhythm Normal ECG Confirmed by DEIRDRE CHEEMA ([id number]), technical writer and editor HERMAN MEHTA ([id number]) on 04/08/2023 8:17:17 AM Referred By: Confirmed By:DEIRDRE CHEEMA
[2023-04-05] MEDS: LORazepam 1 MG Tablet PO (07:59)
[2023-04-05] MEDS: Ondansetron ODT 4 MG Tablet PO (07:59)
[2023-04-05] MEDS: hydrOXYzine 10 MG Tablet PO (08:16)
== END 2023-04-05 08:18 | disposition home or self-care (01) ==
LOC: ED 08:11
PROVIDERS: Emergency Provider Emergency Medicine; PCP Family Medicine; Visit Provider Emergency Medicine
DX: F41.1 Generalized anxiety disorder (principal); R11.2 Nausea with vomiting, unspecified; F17.210 Nicotine dependence, cigarettes, uncomplicated
CPT/HCPCS: 93005; 99283

== ENCOUNTER 2023-04-22 10:40 | Emergency (ER) | payer OTHER, SELFPAY ==
[2023-04-22 10:42] VITALS: BP 122/95; PULSE 105; RESP 18; TEMP 36.3; O2SAT 98; BMI 27.3
--- NOTE | 2023-04-22 11:17 | EDS_ITS ---
HPI History of Present Illness Chief Complaint: Anxiety Detail of Chief Complaint: Anxiety reaction, tremors, stuttering speech Informant: patient Onset/Context/Timing Onset: Weeks Context: Sudden Onset (Suddenly got worse) Timing: Continuous and Waxes and wanes Quality: Anxiousness Location: Little by Current Severity: Mild Maximum Severity: Severe Worsened by: Nothing specific per patient Relieved by: Nothing Associated Symptoms Associated Symptoms: Palpitations, shortness of breath, tingling, nervousness Narrative Narrative: Patient is a 37-year-old woman who states she had anxiety for her entire life. She is seen by psychiatry. Her medication was changed. She was placed back on her regular dose of medicine. She has not gotten better. She contacted her psychiatrist recommended she present to the emergency department. She denies any problems with home life i.e. , children. She presently does not work. She responded I have a good life . Patient does give viral-like symptoms started Friday. She also has a lot of similar symptoms other than the nasal congestion and cough when she has an anxiety reaction. She denies documented fever. She denies headache. Denies double vision, blurred vision loss of vision. She denies sore throat. She does complain of shortness of breath. Does have a slight cough. The cough is nonproductive. She does endorse nausea and vomiting. She states she gets nausea vomit with her anxiety reaction/attacks. She denies urologic symptoms. She denies Guerrero lesions. Prior similar symptoms: Yes Recent Illness/Hospitalization: Yes [facility] Medical History Alcohol abuse Back problem Chronic midline thoracic back pain Chronic neck pain PEDRO (generalized anxiety disorder) Intertrigo Macromastia Panic disorder Shoulder pain Home Medications venlafaxine 150 mg capsule,extended release 24 hr (Effexor XR) 150 mg PO DAILY 10/11/20 [History Last Taken Unknown] trazodone 50 mg tablet 50 mg PO DAILY 10/01/21 [History Last Taken Unknown] norethindrone (contraceptive) 0.35 mg tablet (Patti) 0.35 mg PO QDAY #84 tabs 03/27/23 [Rx Last Taken Unknown] ondansetron 4 mg disintegrating tablet 4 mg PO Q8H PRN nausea and vomiting 7 days #21 tabs 04/05/23 [Rx Last Taken Unknown] hydroxyzine HCl 25 mg tablet 25 mg PO TID PRN anxiety 30 days #90 tabs 04/08/23 [Rx Last Taken Unknown] mirtazapine 15 mg tablet See Rx Instructions .Route .COMPLEX #90 tabs 04/08/23 [Rx Last Taken Unknown] lorazepam 0.5 mg tablet (Ativan) 0.5 mg PO BID PRN anxiety 5 days #10 tabs 04/22/23 [Rx Last Taken Unknown] Allergy/AdvReac Type Severity Reaction Status Date / Time No Known Allergies Allergy Verified 04/22/23 10:41 Family History Other Alcohol abuse Anxiety Bowel disease Colon cancer Depression Social History household members: spouse and children number of children: 2 current occupational status: employed current occupation: [employer] history of recent travel: No sexually active: Yes Smoking Status: Current every day smoker tobacco type: e-cigarettes Electronic Cigarette Use: with nicotine alcohol intake: former substance use type: does not use what type of physical activity do you participate in: aerobics and weight training seatbelt use: always do you feel safe at home: Yes additional social history: - Calvin Does Take Aspirin As Needed Does Take Ibuprofen As Needed ROS ROS ED Constitutional Constitutional ED: Reports fever(s) and subjective; Denies chills, sweats or weight loss Eyes Eyes: Denies blurry vision, change in vision or diplopia ENT ENT ED: Reports rhinorrhea; Denies ear pain or sore throat Cardiovascular Cardiovascular: Reports chest pain and palpitations; Denies orthopnea, paroxysmal nocturnal dyspnea or racing heartbeat Respiratory/Chest Respiratory/Chest: Reports cough and dyspnea; Denies dyspnea on exertion, orthopnea, paroxysmal nocturnal dyspnea or sputum Gastrointestinal Gastrointestinal: Reports nausea and vomiting; Denies abdominal pain or constipation Genitourinary Genitourinary ED: Denies dysuria, hematuria or urinary frequency Musculoskeletal Musculoskeletal: Denies arthralgias, back pain, myalgias or neck pain Integumentary Denies rash Neurologic Neurologic: Reports paresthesias; Denies headache(s) or weakness Psychiatric Psychiatric: Reports anxiety; Denies suicidal ideation Hematologic/Lymphatic Hematologic/Lymphatic: Reports systems reviewed and no addt'l complaints, except as documented EXAM Physical Exam Const Vital Signs: 04/22/23 10:42 04/22/23 11:27 Temperature 97.3 F L Temperature Source Temporal Pulse Rate 105 H Respiratory Rate 18 Respiratory Pattern Tachypnea Blood Pressure 122/95 H Blood Pressure Mean 104 Pulse Ox 98 Oxygen Delivery Method Room Air Positive well nourished and well developed Constitutional Narrative: Patient has tremors. Patient stutters at times. General Appearance ED: well developed; Negative for NAD or pallor HEENT Reports moist mucous membranes HEENT Narrative: Head is atraumatic normocephalic. Ears are normal. Nares are patent. Posterior pharynx is normal Eyes PERRL and EOMs intact bilaterally General Eye ED: Negative for pale conjunctiva or scleral icterus Neck no lymphadenopathy, supple and no JVD Resp normal respiratory effort and clear to auscultation bilaterally Cardio regular rhythm, S1 normal heart sound, S2 normal heart sound and no murmurs Rate: tachycardic GI normal to inspection, nondistended, normoactive bowel sounds, non-tender, non- distended and no masses; Negative for hepatosplenomegaly Extremity normal to inspection General Extremety ED: Negative for edema or tenderness General Extremity: Negative for edema Neuro oriented x3, CN's II-XII intact bilaterally and no sensory deficits noted Sensorium / Orientation: alert Sensory Exam: sensory level loss detected Psych Mood & Affect: anxious Skin no rashes or lesions noted, no wounds and skin turgor normal General Skin Exam: elasticity normal; Negative for jaundice or pallor MDM MDM MDM Narrative Medical decision making narrative: Consult was placed to case management to determine what else can be done for this patient. She was given a dose of Ativan. Will observe. Management Discussion w/another healthcare provider: airplane woodworker/Case management (Documented under the ER evaluation) Treatment and Re-Evaluation :: Case management did evaluate patient. She gave her outpatient resource information. She will also follow-up with her doctor. Patient was discharged with short course of antianxiety medication. Patient is improved after Ativan Discharge Plan Triage Chief Complaint: Anxiety Other Complaint: Shortness of Breath ED Provider: Spencer Arvizu Dx/Rx/DC Orders Clinical Impression: PEDRO (generalized anxiety disorder), Anxiety reaction Instructions: ED Anxiety Reaction Prescriptions: New lorazepam [Ativan] 0.5 mg tablet 0.5 mg PO BID PRN (Reason: anxiety) 5 Days Qty: 10 0RF No Action venlafaxine [Effexor XR] 150 mg capsule,extended release 24hr 150 mg PO DAILY trazodone 50 mg tablet 50 mg PO DAILY norethindrone (contraceptive) [Patti] 0.35 mg tablet 0.35 mg PO QDAY Qty: 84 4RF Rx Instructions: start day 1 of menstrual cycle mirtazapine 15 mg tablet See Rx Instructions .ROUTE .COMPLEX Qty: 90 0RF Dose Instruction: take 1 tablet by mouth at bedtime Rx Instructions: take 1 tablet by mouth at bedtime hydroxyzine HCl 25 mg tablet 25 mg PO TID PRN (Reason: anxiety) 30 Days Qty: 90 1RF ondansetron 4 mg tablet,disintegrating 4 mg PO Q8H PRN (Reason: nausea and vomiting) 7 Days Qty: 21 0RF Primary Care Provider: Roxy Barrios Referrals: Roxy Barrios MD [Primary Care Provider] - Disposition Disposition: Home, Self Care
[2023-04-22] MEDS: LORazepam 0.5 MG Tablet PO (11:24)
--- NOTE | 2023-04-22 12:45 | CM.ED ---
Social Work Psychiatric Assessment Reason for Consult: mental health Informants: PatientKerry Chief Complaint: Patient reports ?since Friday I have been in constant panic mode?. Demographics: Patient is a 37-year-old who identifies as a heterosexual female. Patient has been for 15 years and has two children who she lives with in a home she and her own. 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. ? Mental Health Treatment/ History: Patient reports she has had a counselor roughly three years ago but is current with Dr. Yuen for psychiatry services. Patient reports known diagnosis of anxiety and panic disorder. Patient explained she was prescribed an anxiety medications for three months but stopped taking it because she felt better and the medication was using a weight gain. Patient then resumed that medication 3 weeks ago due to an increase in panic and anxiety. Patient reports an improvement the first week but reports panic has resumed since. Patient was encouraged to come to ED by psychiatrist. Supports/ Resources: Patient identified her , mother, [id number] and lots of friends and coworkers as her main support, explaining she has a lot of people she can rely on. ? 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 Patient reports no other changes. ? Patient reports an increase in sleeping as she can avoid the panic but also notes difficulty falling asleep because of the anxiety. Patient reports she wakes up anxious and struggles for hours trying to meditate or do deep breathing to cope. Patient reports decrease in appetite due to anxiety and explained she is typically able to eat in the evening as that is when her anxiety is usually more manageable. ? Legal Issues: None reported Coping Skills: Patient reports trying the following coping skills: changing jobs, meditation, running, tapping, deep breathing and taking a shower. Abuse History: ? None reported Substance Abuse Hx: Patient reports history of alcohol abuse but has been sober for 3 ? years. ??? Risk to Self/Others: ? Suicidal: Patient denied. ? Homicidal: Patient denied. ? Violence: Patient denied. Mental Status Exam: ? Orientation x4 ? Memory: good ? Appearance:? appropriate ? Mood/ affect: anxious with congruent affect, tearful at times ? Communication Pattern: Patient responds to questions, voice is shaky due to anxiety. ? Thought Process: rational, denies A/VH ? General Intellectual Functioning: average Judgement: fair Insight: fair? Assessment: SW consulted by MD Nolberto MD reviewed presenting symptoms and concerns. MD recommending additional resources to assist with anxiety. SW met with patient and patient?s mother and introduced herself and role as [facility] Clinical Laboratory Assistant. Patient was agreeable to speak to social work with their mother in the waiting room. SW then utilized open and close ended questions to gather information for patient?s assessment. Patient was receptive and cooperative. Patient recalls being prescribed an anxiety medication by Dr. Yuen, stopping that medication due to weight gain and patient?s symptoms being manageable, however, patient?s symptoms have resumed. Patient explained she resumed the anxiety medication and experienced a decrease in symptoms for one week, but panic and anxiety have been increasing and difficult to manage. Patient reports decreased ability to go to work and is struggling to manage anxiety and panic so she was encouraged to present to ED for evaluation. SW reviewed typical recommendations. Patient reports having an IOP assessment completed and needs to call them if she wants to continue. Patient requesting to talk with family about psychiatric hospital. SW returned to patient?s room to further discuss s/c plan with patient?s mother present. Patient reports after talking with family, she wants to purse [facility] IOP services and continue with her psychiatrist Dr. Yuen. ANNETTE reviewed local crisis contact as well as [phone] resources. SW then reviewed anxiety coping skills and grounding coping skills. SW also provided information regarding [facility] IOP program and community MH agencies. Patient receptive towards information and agreeable to SW contacting [facility] to review ED visit. SW encouraged patient to contact Crisis or return to ED if symptoms increase or worsen or contact a psychiatric hospital of her choice for an assessment. Patient voiced understanding. ? Care team updated of resources provided. [facility] IOP staff Fransico updated. Plan: safety plan, referral to [facility] IOP/[facility], community resources and coping skills list provided. Antonina Neff MSW, [place]
--- NOTE | 2023-04-23 15:37 | CM.ED ---
Social Work SW contacted patient to follow up regarding safety plan completed in ED 04/22/23. Patient recalls working with SW and was agreeable to talk. SW engaged patient in conversation regarding recent events and symptoms. Patient reports manageable anxiety symptoms, explaining she did not wake up with severe anxiety nor needed her PRN anxiety medication. Patient is scheduled to start [facility] IOP on Friday and is on the cancelation list to be seen by her psychiatrist, Dr. Yuen, as soon as she is able. Patient voiced no current concerns and expressed her appreciation for support. SW encouraged patient to contact crisis or return to ED if symptoms return or increase, patient voiced understanding. Antonina Neff TERMINATION CLERK, [place]
== END 2023-04-22 13:09 | disposition home or self-care (01) ==
PROVIDERS: Emergency Provider Emergency Medicine; PCP Family Medicine; Visit Provider Emergency Medicine
DX: F41.1 Generalized anxiety disorder (principal); R25.1 Tremor, unspecified; R06.02 Shortness of breath; R09.81 Nasal congestion; R00.2 Palpitations; R05.9 Cough, unspecified; R11.2 Nausea with vomiting, unspecified; F17.290 Nicotine dependence, other tobacco product, uncomplicated; Z79.899 Other long term (current) drug therapy
CPT/HCPCS: 99283

== ENCOUNTER 2023-04-28 08:00 | Outpatient (RCR) | payer OTHER, SELFPAY ==
--- NOTE | 2023-04-28 09:00 | BH.COMM ---
Communication Note Communication with Client Communication Note: Met with patient to complete initial paperwork. Updated on changes since pre-admission screening (pt presented to the [facility] ER last week for panic). Completed [facility] [facility] Scre[facility] and pt was low risk. Consulted with Dr. Gomez with plan to admit to [facility] level of care with dx F41.1 Panic Disorder.
--- NOTE | 2023-04-28 09:00 | BH.COMM_ITS ---
Communication Note Communication with Client Communication Note: Met with patient to complete initial paperwork. Updated on changes since pre-admission screening (pt presented to the [facility] ER last week for panic). Completed [place] [facility] Screening and pt was low risk. Consulted with Dr. Gomez with plan to admit to [facility] level of care with dx F41.1 Panic Disorder.
--- NOTE | 2023-04-28 09:05 | BH.SGPN.GN ---
Behaviors/Verbalizations/Mental Status: [] Pt alert and oriented, neatly dressed and groomed. Eye contact good. Motor activity appropriate. Speech within normal limits. Affect congruent, mood anxious. Thoughts linear, logical, no signs of hallucinations or delusions. Reviewed pt?s symptom tracker, no risk for suicidal ideation, plan, or intent 04/28/23 Client Response/Progress/Benefit: []Pt responded well to session, attentive and engaged. Pt's first day of IOP tx and pt shared the biggest thing she wants to work on is learning how to manage her anxiety. Pt stated over the past month pt has not been functioning like herself. Pt shared I'm normally the fun one and I can't stop shaking. Pt has been unable to work recently due to her physical and emotional symptoms of anxiety. Pt stated something similar happened three years ago when pt went to rehab, but pt is not sure what triggered her anxiety this time. Pt appeared to benefit from connecting with peers and giving herself credit for being over three years sober. Pt will continue IOP tx to prevent decompensation, gain healthy coping skills, and improve daily functioning. Narrative Note: []
--- NOTE | 2023-04-28 10:15 | BH.SGPN.GN ---
Behaviors/Verbalizations/Mental Status: []Eye contact is good. Motor activity is appropriate. Appearance is casual. Speech is Appropriate, mostly quiet as it is pt first day. Mood is anxious and depressed. Affect is congruent. Thoughts are linear and logical. No evidence of psychosis. Client Response/Progress/Benefit: []Pt was an active participant in group discussion. Attentive during psychoeducation on SMART goals. Participated in experiential activity. Engaged during interactive discussion on the benefits of setting goals which group identified as; increase self-worth, increase confidence, can motivate us, can lead to personal growth, and can give one a sense of purpose. Participated during interactive discussion on possible obstacles to obtaining goals and pt self-identified barriers as fear of failure and self-doubt. Benefited from increased understanding of benefits of goals, obstacles to obtaining goals, and methods for setting appropriate goals (SMART goals). Will continue in IOP to prevent decompensation, stabilize mood, and improve current functioning. Narrative Note: []
--- NOTE | 2023-04-29 09:05 | BH.SGPN.GN ---
Behaviors/Verbalizations/Mental Status: [] Eye contact is good. Motor activity is appropriate. Appearance is disheveled. Speech is Appropriate. Mood is anxious. Affect is congruent. Thoughts are linear and logical. No evidence of psychosis. Reviewed daily check in sheet and no reports of suicidal ideations or intent. Client Response/Progress/Benefit: [] Pt participated at times during the group discussion. Attentive. Emotion for today is hopeful. Mental health win consisted of her cooking a meal yesterday. Shared why this was beneficial for her mental health as she has been struggling to cook for herself and family with recent anxiety/depression. She again woke up with anxiety this AM and is reporting to be practicing skills to help minimize its impact. 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 Her anxiety and panic attacks have been a significant obstacle to work. She is anxious about the client today. Currently unable to identify any plan or strategies to help. This is only patient's 2nd day of IOP. Appears to fell pressure to get back to baseline and work. Progress noted per pt report with increase motivation and energy which led to improved functioning yesterday. Benefited from group support, encouragement and feedback. Will continue in IOP to maintain prevent decompensation, decrease panic attacks, increase healthy coping skills, and improve functioning to return to work. Narrative Note: []
--- NOTE | 2023-04-29 10:20 | BH.SGPN.GN ---
Behaviors/Verbalizations/Mental Status: []Pt alert and oriented, casually dressed and groomed. Eye contact good. Motor activity appropriate. Speech within normal limits. Affect congruent, mood anxious and depressed. Thoughts linear, logical, no signs of hallucinations or delusions. Client Response/Progress/Benefit: []Pt was a passive but attentive participant, AEB taking notes and providing input in group discussions and activities. Attentive during psychoeducation. Pt engaged during interactive discussion in which the group defined self-care and discussed its benefits. Group discussed barriers to engaging in self-care. Pt identified connecting with barrier of telling herself that she doesn't have time or self-care is selfish which keeps pt from practicing self-care. Pt participated in small groups where they worked to identify common self-care ?myths?. Benefited from increased awareness of self-care, its benefits, and the consequences of not utilizing self-care strategies. Will continue IOP tx to prevent decompensation, improve healthy coping skills, and continue to improve mood stability. Narrative Note: []
--- NOTE | 2023-04-29 11:15 | BH.SGPN.GN ---
Behaviors/Verbalizations/Mental Status: []Pt alert and oriented, neatly dressed and groomed. Eye contact good. Motor activity appropriate. Speech within normal limits. Affect congruent, mood anxious. Thoughts linear, logical, no signs of hallucinations or delusions. Client Response/Progress/Benefit: [] Pt engaged participant AEB completing self-assessment worksheet and providing input throughout discussion. Pt completed worksheet identifying current self-care practices and what self-care activities pt wants to start using. Pt selected spiritual self-care to begin practicing more consistently. Pt plans to do this by listening to uplifting music and getting out in nature more often. Appeared to benefit from completing the self-care evaluation and gaining insights into current self-care practices, as well as identifying areas in which pt would like to improve upon.? Pt will continue IOP tx to prevent decompensation, improve daily functioning, and gain healthy coping skills. ? Narrative Note: []
--- NOTE | 2023-04-30 09:05 | BH.SGPN.GN ---
Behaviors/Verbalizations/Mental Status: []Pt alert and oriented, casually dressed and groomed. Eye contact good. Motor activity appropriate. Speech within normal limits. Affect congruent, mood content and anxious. Thoughts linear, logical, no signs of hallucinations or delusions. Reviewed pt?s symptom tracker, no suicidal ideation reported, denies plan, or active intent as of 04/30/23. Client Response/Progress/Benefit: [] Pt responded well to session, open to processing with group and engaged. Pt reports feeling content this morning and shared beliefs this is due to getting back into self-care activities she had been neglecting for some time. Shared her current mental health wins included getting some housework done the previous date, as well as beginning a 30-day at home yoga challenge. Shared taking time to exercise and do something calming has helped ease her anxiety in the past and she is hopeful it will do so again. Went on to discuss current stressor, finances, and explained struggling with some guilt about taking time off of work to attend the IOP program. Did well to challenge these thoughts and identify the potential long-term benefits of seeking mental health tx. Pt appeared to benefit from supportive feedback of the group, as well as reflecting on mental health wins. Pt will continue IOP tx to promote mood stability, improve self-care and anxiety management, as well as continue to improve functioning. Narrative Note: []
--- NOTE | 2023-04-30 11:15 | BH.SGPN.GN ---
Behaviors/Verbalizations/Mental Status: []Pt alert and oriented, casually dressed and groomed. Eye contact good. Motor activity appropriate. Speech within normal limits. Affect congruent, mood anxious. Thoughts linear, logical, no signs of hallucinations or delusions. Client Response/Progress/Benefit: [] Pt was an active participant AEB providing input and was actively taking notes. Connected with the topic of pitfalls and listened to group discussion on internal and external barriers that prevent from choosing a healthier path to mental wellness. Group worked together to identify examples of personal internal pitfalls and pt identified theirs as avoidance, looking for a ?quick fix,? and being over-productive. Pt benefited from group as Pt learned to better identify and normalize potential barriers to improving mental health symptoms. Pt will continue IOP tx to prevent decompensation, improve daily functioning, and gain healthy coping skills. Narrative Note: []
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
--- NOTE | 2023-04-30 13:08 | BH.DR.ITP ---
Initial Treatment Plan Patient Information Visit Information: ADMISSION DATE: EXPECTED LOS: 4-6 weeks Problems/Symptoms Problem #1:: Anxiety Symptom:: Panic attacks, worry, rumination, avoidance Problem #2:: Depression Symptom:: Sadness, hopelessness, worthlessness, guilt, anhedonia, low energy, decreased concentration.
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
--- NOTE | 2023-04-30 15:18 | BH.MTP ---
Master Treatment Plan Patient Information Program Physician:: Dr. Rosa M Gomez Primary Therapist:: HOLLEY Woodard Psychiatric Diagnoses Psychiatric Diagnoses:: 1. Generalized anxiety disorder 2. Panic disorder 3. Major depressive disorder, recurrent, severe without psychosis 4. Alcohol use disorder in remission for 3 years Diagnosis Code(s):: F41.1 Estimated LOS Estimated LOS (in weeks):: 6 Problem/Goal #1 Problem/Goal #1 Stated Goal:: Will reduce intensity of anxiety and panic through increasing emotional regulation and distress tolerance skills Description of Barriers: Pt has history of self-harming. Pt reports long-standing history of negative self-talk, rumination, and guilt. Pt also feels guilty about taking time off work. Functional Impact: The patient is a 37-year-old female with a history of anxiety, panic attacks, and alcohol use disorder (sober since 2019) who was referred to the [facility] behavioral health IOP by Dr. Yuen, her psychiatrist. 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 Pt has been off work for the past two weeks as a result which is financially a stressor. She has had 3 recent emergency visits for panic attacks and anxiety which occurred on March 28, April 05 and April 22, 2023. The patient used to medicate her anxiety with alcohol but states that she has not used any alcohol since attending rehab for alcohol in 2019. Her mood is sad and she endorses worthlessness, hopelessness and guilt, anhedonia, inconsistent appetite, low energy levels and decreased concentration. She has a history of cutting as a teenager for 1 year but no self-harm since. She denies seizure, head trauma and eating disorder. She denies also plan for suicide, suicidal ideation, homicidal ideation, hallucinations, delusions or symptoms of romeo ever. Pt?s symptoms are currently impacting her ability to function at baseline. Goal Relevant Strengths/Supports: Pt reports support from her and previous success in substance use IOP tx. Objectives Objective #1: Stated Objective: Pt will identify 2-3 anxiety triggers and 2 coping skills to use when feeling anxious to manage anxiety as shown by reducing DSM-5 scores for anxiety Interventions: Therapist will provide education on anxiety, avoidance behaviors, and maintenance cycles. Therapist will help pt explore personal symptoms and warning signs of anxiety. Therapist will teach pt coping skills to improve emotional regulation, mindfulness, and distress tolerance to help pt cope with anxiety in the moment. Discharge Criteria: Pt will have accomplished this goal when he can identify at least 2 triggers and report using 2 coping skills to manage anxiety. Additionally, pt will have accomplished this goal AEB reduction of DSM-5 scores for anxiety. Target Date: 06/12/23 Review Date: 05/21/23 Objective #2: Stated Objective: Pt will increase ability to manage stressors and anxiety by gaining 2-3 distress tolerance skills. Interventions: Through group and individual therapy, pt will learn various coping skills to help manage stress and anxiety. Therapist will utilize DBT distress tolerance skills to increase awareness and give pt tools to more effectively manage anxiety. Therapist will provide psychoeducation on emotional regulation and help pt identify unhealthy coping skills she wants to change. Discharge Criteria: Pt will have accomplished this goal when can report improved ability to manage stressors and identify at least 2 distress tolerance skills. Target Date: 06/12/23 Review Date: 05/21/23 Problem/Goal #2 Problem/Goal #2 Stated Goal:: Pt will increase mood stability by reducing hopelessness, worthlessness, and guilt. Description of Barriers: Pt has history of self-harming. Pt reports long-standing history of negative self-talk, rumination, and guilt. Pt also feels guilty about taking time off work. Functional Impact: The patient is a 37-year-old female with a history of anxiety, panic attacks, and alcohol use disorder (sober since 2019) who was referred to the [facility] behavioral health IOP by Dr. Yuen, her psychiatrist. 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 Pt has been off work for the past two weeks as a result which is financially a stressor. She has had 3 recent emergency visits for panic attacks and anxiety which occurred on March 28, April 05 and April 22, 2023. The patient used to medicate her anxiety with alcohol but states that she has not used any alcohol since attending rehab for alcohol in 2020. Her mood is sad and she endorses worthlessness, hopelessness and guilt, anhedonia, inconsistent appetite, low energy levels and decreased concentration. She has a history of cutting as a teenager for 1 year but no self-harm since. She denies seizure, head trauma and eating disorder. She denies also plan for suicide, suicidal ideation, homicidal ideation, hallucinations, delusions or symptoms of romeo ever. Pt?s symptoms are currently impacting her ability to function at baseline. Goal Relevant Strengths/Supports: Pt reports support from her and previous success in substance use IOP tx. Objectives Objective #1: Stated Objective: Pt will learn and utilize 2-3 healthy coping strategies to better manage depressive symptoms and reduce suicidal ideations as shown by a decrease of DMS-5 symptoms for depression. Interventions: Through group and individual sessions, therapist will help pt identify triggers and warning signs of depression and guilt including emotional, physical, and behavioral changes. Therapist will teach pt various coping skills to manage symptoms and give pt tangible resources to use to regulate emotions. Therapist will use cognitive restructuring techniques and help pt gain awareness of negative thoughts that reinforce guilt and depression. Therapist will provide psychoeducation on maintenance cycles and help pt learn ways to break unhealthy maintenance cycles. Therapist will help pt incorporate behavioral activation and assist pt in setting SMART goals. Discharge Criteria: Pt will have met this goal when can report learning and using at least 2 coping skills to manage depressive symptoms and reduce isolation. Additionally, pt will have met this goal when pt's DSM-5 scores for depression decrease Target Date: 06/12/23 Review Date: 05/21/23 Objective #2: Stated Objective: Pt will identify at least 2-3 negative self-talk messages used to reinforce negative core beliefs, worthlessness, and isolation and replace thoughts with balanced, realistic messages. Interventions: Therapist will help pt identify distorted, negative beliefs about self and replace with more realistic, affirmative messages. Therapist will use CBT and DBT to help pt increase insight to the connection between thoughts, emotions, and behaviors. Therapist will encourage pt to practice thought challenging. Discharge Criteria: Pt will have achieved this goal when can verbalize at least 2 cognitive distortions and effectively replace those thoughts with affirmative messages. Target Date: 06/12/23 Review Date: 05/21/23
--- NOTE | 2023-04-30 15:19 | BH.MDN_ITS ---
Multi-Disciplinary Note Note 30-min Individual: Time Started:: 11:27 Date: 04/30/23 Purpose of session/treatment goals addressed:: To gather information on pt's current stressors, symptoms, triggers, and tx goals. Another goal was to build rapport and provide emotional support. Motor Activity:: Appropriate Appearance:: Casual Speech:: Appropriate Mood:: Euthymic and Anxious Affect:: Congruent Thoughts:: Linear, Logical and No evidence of hallucinations/delusions noted Staff Interventions:: motivational interviewing, rapport building, strengths perspective, treatment planning and goal setting Client Response:: Pt responded well to session, open to meeting with therapist. Pt shared this is her first time getting mental health specific therapy, but feels comfortable in the group setting as she previously completed and addiction IOP program for alcohol use about 4 years ago. Shared that she found this to be very helpful and has maintained sobriety since. Pt additionally reported that during that time she learned several skills for managing her anxiety; however, has not been consistently utilizing them recently. Pt stated she has social anxiety and tends to feel uncomfortable and awkward in social settings unless her is present. Shared this usually results in her becoming visibly restless and saying the first thing that comes to mind when interacting with other. 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 Described becoming easily overwhelmed and feeling shaky when trying to do client?s hair. Pt thought this was due to not enjoying the new salon and moved back to her old location as a result. Reports sx initially decreased but after a few days returned. Pt shared her anxiety has reached a point where she is no longer able to work and has taken a leave to seek mental health tx. Current stressors include pt?s mental health, caregiving responsibilities for her 2 children (10 and 14 y/o), and finances. Shared that she would like to work on improving her self-care, establishing healthier boundaries and improving her ability to say ?no?, increased self-confidence, and finding healthy ways to manage her anxiety. Risks/Concerns:: Pt denies any active SI, plan, or intent as of 04/30/23. Progress Toward Goals/Plan:: Pt's first week of IOP tx. Pt reports feeling anxious overall but supported and comfortable in the group setting. Pt currently presents with an anxious mood, lack of self-esteem, feeling easily overwhelmed, rumination, avoidance of work, and crying spells. Pt reports symptoms are impacting her daily functioning as well as social, occupational, and familial functioning. Pt will continue IOP tx to prevent decompensation, improve daily functioning, and gain healthy coping skills. Time Stopped:: 11:57
--- NOTE | 2023-05-06 09:05 | BH.SGPN.GN ---
Behaviors/Verbalizations/Mental Status: [] Eye contact is good. Motor activity is appropriate. Appearance is casual. Speech is Appropriate. Mood is anxious. Affect is congruent. Thoughts are linear and logical. No evidence of psychosis. Reviewed daily check in sheet and no reports of suicidal ideations or intent. Client Response/Progress/Benefit: [] Pt participated at times during the group discussion. Attentive. Daily symptom tracker notes 3/5 for anxiety and 2/5 for depression. Emotion for today is hopeful. States I'm up doing stuff regardless of how bad I feel. Has been utilizing opposite action and behavior activation as primary strategies for mood management with some benefit. She is also tried a guided meditation prior to attending work which she found to be helpful in calming herself and decreasing negative automatic thoughts. Progress noted as she is practicing new coping strategies and seeing benefit. Benefited from group support, encouragement, and feedback. Will continue in IOP to prevent decompensation, increase healthy coping, and improve functioning. Narrative Note: []
--- NOTE | 2023-05-06 10:15 | BH.SGPN.GN ---
Behaviors/Verbalizations/Mental Status: []Pt alert and oriented, neatly dressed and groomed. Eye contact good. Motor activity appropriate. Speech within normal limits. Affect congruent, mood anxious. Thoughts linear, logical, no signs of hallucinations or delusions. Client Response/Progress/Benefit: []Pt engaged in session AEB listening attentively to others and providing insight to group discussion. Pt engaged in activity, able to connect how it can be uncomfortable and difficult to accept when things are out of one?s own control. Pt worked with group to identify what things in life can be hard to accept. Group identified things hard to accept as: of a loved one, body image, loss of relationship, mental health diagnosis, other?s behaviors, and past decisions. Pt worked on identifying what personal things are hard to accept such as ?rejection, that self-care is okay, and having to set boundaries.? Pt seemed to benefit from increased awareness of importance of acceptance. Pt to continue IOP tx to prevent decompensation, reduce isolation and avoidance, and improve daily functioning. ? Narrative Note: []
--- NOTE | 2023-05-06 11:15 | BH.SGPN.GN ---
Behaviors/Verbalizations/Mental Status: []Pt alert and oriented, casually dressed and groomed. Eye contact fair to good. Motor activity appropriate. Speech within normal limits. Affect congruent, mood anxious and content. Thoughts linear, logical, no signs of hallucinations or delusions. Client Response/Progress/Benefit: []Pt responded well to session AEB taking notes and contributing to discussion throughout. Pt engaged as group continued discussion on acceptance and the mental health benefits of practicing acceptance. Pt and peers identified what makes acceptance challenging and pt completed a self-reflection exercise on what is hard to accept in pt's life. Pt identified struggling to accept that ?managing my anxiety will take time? Group identified strategies to increase acceptance and pt shared wanting to focus on giving herself credit, self-compassion, and starting with small acceptance goals. Pt appeared to benefit from gaining insight and learning strategies to increase acceptance. Pt will continue IOP tx to promote mood stability, continue to combat distortions, and prevent decompensation. Narrative Note: []
--- NOTE | 2023-05-07 09:05 | BH.SGPN.GN ---
Behaviors/Verbalizations/Mental Status: [] Pt alert and oriented, neatly dressed and groomed. Eye contact good. Motor activity appropriate. Speech within normal limits. Affect congruent, mood anxious. Thoughts linear, logical, no signs of hallucinations or delusions. Reviewed pt?s symptom tracker, no risk for suicidal ideation, plan, or intent 05/07/23 Client Response/Progress/Benefit: []Pt responded well to session, attentive and engaged. Pt reports feeling agitated but hopeful this morning sharing she woke up with terrible anxiety which made pt angry with herself, but then she used opposite action. Pt stated I feel like I should be over it by now and the group offered her support and gentle thought challenging. Pt able to see progress despite having moments of anxiety. Pt reports she has been able to accomplish more tasks and she has been avoiding less. Pt still does not feel back to her baseline and is still highly anxious most days. Pt reports using opposite action and the group encouraged pt to practice mindfulness as well. Pt appeared to benefit from reflecting on application of skills. Pt will continue IOP tx to reduce intensity of anxiety symptoms, improve daily functioning, and increase distress tolerance skills. Narrative Note: []
--- NOTE | 2023-05-07 10:10 | BH.SGPN.GN ---
Behaviors/Verbalizations/Mental Status: []Pt alert and oriented, appropriate grooming/appearance. Eye contact good. Motor activity appropriate. Speech within normal limits. Affect congruent, mood euthymic and anxious. Thoughts linear, logical, no signs of hallucinations or delusions. Client Response/Progress/Benefit: []Pt was an active participant in group discussions. Attentive during psychoeducation. Contributed during interactive discussions in which peers attempted to define crisis. Pt identified examples of potential crisis. Group also worked together to identify unhealthy responses to crisis which included; isolation, self-harm, substance abuse, avoidance, and distraction. Pt identified personal warning signs as shutting down, avoidance, and distraction. Benefited from increased understanding of crisis and awareness of personal responses to crisis. Pt will continue IOP tx to prevent decompensation and continue to promote healthy skill application and communication with supports, as well as use of thought challenging skills. Narrative Note: []
--- NOTE | 2023-05-07 14:41 | BH.MDN ---
Multi-Disciplinary Note Note 30-min Individual: Time Started:: 11:32 Date: 05/07/23 Purpose of session/treatment goals addressed:: Purpose of this session was to address tx plan goal #1. Eye Contact:: Good Motor Activity:: Appropriate Appearance:: Neat and Casual Speech:: Appropriate Mood:: Euthymic and Anxious Affect:: Congruent Thoughts:: Linear, Logical and No evidence of hallucinations/delusions noted Staff Interventions:: psychoeducation on: (safety behaviors for anxiety, boundary setting), CBT techniques, strengths perspective and taught coping skills (reviewed diaphragmic breathing and grounding skill) Client Response:: Pt receptive of session, actively engaged throughout. Reports feeling her anxiety is beginning to improve and she has returned to work for one day. Shared this was a positive experience and her coworkers and clients were all very supportive. Discussed that her coworkers were receptive of pt putting a yoga mat in the back room to practice meditation when noticing she is starting to feel more anxious. 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 Expressed feeling proud of this but is anxious about setting and maintaining boundaries regarding pricing and appointment availability as clients have taken advantage of her and asked for discounts or last-minute appointments in the past. Noted that she does well with all other aspects of her job but has historically struggled to manage conflict and provided several examples. Acknowledges that although conflict is uncomfortable, she will be glad to have followed through with the boundary and advocated for herself. Identified plans to start small with communicating the boundary on her public page, as well as with clients she feels comfortable with. Insight that this would help to improve her comfort levels with having the boundary setting discussion so that she is more capable of standing firm when these boundaries are tested. Additionally, pt discussed ongoing anxiety in the morning. Shared that mornings are often busy and stressful which may be a contributing factor. Pt described her morning routine and indicated that she has never incorporated self-care into her morning. Receptive of starting the day with a mindfulness activity or meditation to see if this aids in reducing anxiety levels. Risks/Concerns:: No risks or concerns noted. Pt denies any SI, plan, or intent as of this date 05/07/23. Progress Toward Goals/Plan:: Progress noted. Pt reports improvements in overall anxiety levels and has been able to successfully return to work as a result. Reports regularly incorporating meditation into her routine which has been helpful, as well as discussed workplace accommodations with her supports. Pt continues to report anxiety in the morning and when facing potential conflict. Also reports medication anxiety and researching side effects. Pt will continue in IOP tx to increase consistent coping skill application, further reduce depression, and prevent decompensation. Time Stopped:: 12:01
--- NOTE | 2023-05-08 09:05 | BH.SGPN.GN ---
Behaviors/Verbalizations/Mental Status: [] Pt alert and oriented, neatly dressed and groomed. Eye contact good. Motor activity appropriate. Speech within normal limits. Affect congruent, mood euthymic. Thoughts linear, logical, no signs of hallucinations or delusions. Reviewed pt?s symptom tracker, no risk for suicidal ideation, plan, or intent 05/08/23 Client Response/Progress/Benefit: []Pt responded well to session, attentive and providing supportive statements. Pt reports feeling happy this morning and shared that she had a really good day at work yesterday. Pt felt like it went well because she had good customers but pt was challenged to give herself credit and pt recognized that she used breathing skills. Pt's stressor today is that she is putting a lot of pressure on herself to be better in two weeks because that is when pt's boss is going on vacation. Pt receptive to gentle thought challenging and reminded to practice realistic expectations. Pt appeared to benefit from reflecting on her wins. Pt will continue IOP tx to promote mood stability, reduce avoidance, and improve daily functioning. Narrative Note: []
--- NOTE | 2023-05-08 10:15 | BH.SGPN.GN ---
Behaviors/Verbalizations/Mental Status: []Pt alert and oriented, casually dressed and groomed. Eye contact good. Motor activity appropriate. Speech within normal limits. Affect congruent, mood content and anxious. Thoughts linear, logical, no signs of hallucinations or delusions. Client Response/Progress/Benefit: []Pt was an active participant in group discussions and activity. Attentive during psychoeducation. Pt along with peers were able to identify several negatives on the picture given to the group. Pt and peers also identified positives in the picture and made the connection that finding positives is much more difficult. Interactive discussion on the definition of perspective, how perspective is formed, and why perspective is important in treatment. Pt along with peers also identified that perspective can either motivate and encourage treatment or be a barrier to receiving help. Pt shared today her perspective is more hopeful and optimistic, with some frustration as she is continuing to struggle with acceptance regarding her anxiety and the time it may take to consistently see improvements. Pt stated her current perspective is helping her to focus on the importance of addressing her mental health needs and have an open mind going into the therapeutic setting; however, also contributes to impatience in doing so. Will continue IOP tx to enhance coping skill repertoire, improve anxiety management and mood stability, and prevent decompensation. Narrative Note: []
--- NOTE | 2023-05-08 11:17 | BH.SGPN.GN ---
Behaviors/Verbalizations/Mental Status: []Pt alert and oriented, casually dressed and groomed. Eye contact good. Motor activity appropriate. Speech within normal limits. Affect congruent, mood euthymic and anxious. Thoughts linear, logical, no signs of hallucinations or delusions. Client Response/Progress/Benefit: []Pt was attentive and contributed to small group discussion. Pt completed strengths exploration worksheet, identifying creativity, compassion, and adventurousness as personal strengths. Pt able to acknowledge how these strengths are helping pt and can continue to help pt in mental health journey. Pt worked with group to identify strategies that can help increase utilization of personal strengths and how to challenge one?s perspective in general. Pt identified wanting to work on journaling to help challenge perspective. Benefited from identifying personal strengths and strategies for enhancing use of identified strengths. Pt to continue IOP tx to promote mood stability, improve daily functioning, and prevent decompensation. ? Narrative Note: []
--- NOTE | 2023-05-12 09:00 | BH.SGPN.GN ---
Behaviors/Verbalizations/Mental Status: [Patient was alert and oriented, casually dressed and groomed. Eye contact was good, motor activity appropriate, speech within normal limits. Affect congruent, mood anxious. Thoughts linear, logical, no signs of hallucinations or delusions. Reviewed patient?s symptom tracker all categories within normal limits] Client Response/Progress/Benefit: [Patient was engaged in session and open to the discussion. The patient describes her mood as being ?anxious but optimistic?. The patient states her first win being that she went to all of her children?s games over the weekend. This causes her anxiety because her children have multiple games on the weekends, and she deals with a lot of interactions with parents she does not know. Patient states her second win as being her ability to cope with a customer being rude to her and setting boundaries. Patient reports this as also being a stressor because she has been reminiscing on it since Friday and blaming herself for the situation. The patient states that after discussing it in group, she does feel a bit better because she has not confided in anyone over the weekend about it. Patient connected with other group members about their mental wins and stressors and offered advice to some members. Patient will continue with IOP treatment to promote mood stability, improve distress tolerance, and continue to cope skills for her anxiety.] Narrative Note: []
--- NOTE | 2023-05-12 10:15 | BH.SGPN.GN ---
Behaviors/Verbalizations/Mental Status: []Pt alert and oriented, casually dressed and groomed. Eye contact good. Motor activity appropriate. Speech within normal limits. Affect congruent, mood anxious. Thoughts linear, logical, no signs of hallucinations or delusions. Client Response/Progress/Benefit: []Pt was an active participant in activity and taking notes during group discussion. Attentive during psychoeducation on coping skills, why people use unhealthy coping skills, and how to replace unhealthy coping skills. Group came up with list of negative coping skills and pt identified several including avoiding stressors, eating, and shutting down. Group discussed the effects of how negative coping skills can impact mental health in a negative way. Benefited from increased understanding of unhealthy coping skills and the need for developing healthy internal and external coping skills. Pt will continue IOP tx to prevent decompensation, improve mood stability, and increase self-confidence. Narrative Note: []
--- NOTE | 2023-05-12 11:10 | BH.SGPN.GN ---
Behaviors/Verbalizations/Mental Status: []Pt alert and oriented, casually dressed and groomed. Eye contact good. Motor activity appropriate. Speech within normal limits. Affect congruent, mood euthymic. Thoughts linear, logical, no signs of hallucinations or delusions Client Response/Progress/Benefit: []Pt responded well to session, taking notes and contributing. Group discussed the different categories of coping skills which included distraction, emotional release, grounding, self-love, and thought challenging.? Pt participated in creating a coping skills ?menu? from the five categories of coping skills. Pt's coping skill menu included: journaling, meditation, talking it out, exercise, and shadow journal. Appeared to benefit from increasing repertoire of healthy coping skills. Will continue IOP tx to increase consistent use of healthy coping skills, increase confidence, and prevent decompensation.
--- NOTE | 2023-05-14 09:00 | BH.SGPN.GN ---
Behaviors/Verbalizations/Mental Status: [Patient was alert and oriented, causally dressed and groomed. Eye contact was poor, motor activity normal, speech within normal limits. Affect congruent, mood anxious/depressed. Thoughts linear, logical, no signs of hallucinations or delusions. Reviewed Patients symptom tracker and the patient rated themselves as low/moderate for agitation/irritability/anger and moderate/severe in depressed mood and anxiety/panic attacks. The patient does not report any self-harm urges/behaviors, thoughts of suicide, or risk of suicide. ] Client Response/Progress/Benefit: [Patient was engaged and open to the discussion. Patient reports her mood to be ?Depressed?. Patient stated her first mental health win is that she got through work yesterday and that it was a good day. She stated she feels as if she is calmer. A second win the patient shared she continues to journal. Patient stated that she is still finding it hard to get up and that her anxiety is the worse in the morning. Patient was not able to identify things she could do to make this more manageable though was receptive to feedback from peers. Patient was quiet and did not engage with other group members about their mental wins and stressors but was respectful and benefited from the discussion and appeared to use active listening. Patient will continue with IOP treatment to promote mood stability, improve distress tolerance, and continue to improve functioning.] Narrative Note: []
--- NOTE | 2023-05-14 11:05 | BH.SGPN.GN ---
Behaviors/Verbalizations/Mental Status: []Pt alert and oriented, neatly dressed and groomed. Eye contact good. Motor activity appropriate. Speech within normal limits. Affect constricted, mood anxious. Thoughts linear, logical, no signs of hallucinations or delusions. Client Response/Progress/Benefit: [] Pt was an active participant in group discussions and experiential activity. Attentive during psychoeducation. Pt participated during interactive discussion on strategies to overcome several obstacles to mental wellness including low self-esteem, fear, and negative thinking patterns. Pt choose the barrier of anxiety and low self-worth? to work on this week and identified strategies to incorporate including practicing grounding and self-care. Benefited from increased awareness of obstacles to mental wellness and strategies to help overcome those obstacles. Will continue in IOP tx to reduce avoidance, improve daily functioning, and increase distress tolerance. Narrative Note: []
--- NOTE | 2023-05-14 11:28 | PCM.BH.PN_ITS ---
Progress Note Progress Note: History of Present Illness/Interim History: The patient is a 37-year-old female with a history of severe anxiety, panic attacks, depression and alcohol use disorder (sober since 2019) who is seen in follow-up at the [facility] behavioral health IOP. I last saw the patient 2 weeks ago and at that time her Effexor dose was increased. And propranolol was added. The patient states that at first she seemed like she was stable or slightly better but in the last week she feels her symptoms have worsened and she describes her mood as still being severely depressed including worthlessness, hopelessness and guilt. Her anxiety is if anything worse lately although she has not gone to the emergency room. The patient had 3 emergency room visits for anxiety from March 28 to April 22, 2023. She denies any side effects from increasing the Effexor. She denies passive thoughts of , suicidal ideation, plan for suicide, homicidal ideation, hallucinations, delusions, symptoms of romeo. Still getting panic attacks on occasion and using the Vistaril and rarely the Ativan for this. She denies any new stressors or problems that could have worsened her anxiety. She feels she is learning valuable skills in the IOP. Current Psychiatric Medications: [] Effexor Exar 225 mg p.o. daily (increased dose 2 weeks ago; on this 5 years total); mirtazapine 15 mg p.o. nightly (restarted 7 weeks ago); Ativan 0.5 mg as needed but takes it only as needed and tries not to use it; hydroxyzine 25 mg up to 3 times a day as needed for panic attacks. Mental Status Examination: [] Patient is a 37-year-old female who appears normal for stated age and is casually dressed and groomed with good hygiene. She is ambulatory with a normal gait and has no psychomotor agitation or retardation. Eye contact is good and speech is normal rate and rhythm and fluent with no pressure. Mood is depressed and anxious. Affect is mildly constricted and the patient is tearful at times. Thought process is goal- directed and organized. Thought content: There is no evidence of passive thoughts of , plan for suicide, suicidal ideation, homicidal ideation, hallucinations or delusions. Reality testing is intact. Intelligence is average. Judgment is intact. Insight Limited but improving. Impulsivity moderate. Diagnoses: [] 1. Generalized anxiety disorder 2. Panic disorder 3. Major depressive disorder, recurrent, severe without psychosis 4. Alcohol use disorder in remission for 3 years 5. Work issues Plan: [] The patient will continue the IOP at [facility] as the structure, support, education and group therapy will hopefully prevent worsening of the patient's symptoms and lessen the probability of emergency room visits or admission. She felt safe during the interview and if it anytime she does not feel safe she will let us know or go to the emergency room. The risks, options, possible complications and side effects of the medications were again discussed with the patient and she understands and accepts these. We will continue the current medications at their current doses. In addition she agrees to increase her Remeron to 30 mg p.o. nightly and a prescription is sent in for this. Refills also sent in for hydroxyzine. She will continue to follow-up with her outpatient providers and I will see the patient in follow-up in 2 weeks.
--- NOTE | 2023-05-14 12:59 | BH.MDN_ITS ---
Multi-Disciplinary Note Note 30-min Individual: Time Started:: 10:23 Date: 05/14/23 Purpose of session/treatment goals addressed:: Purpose of this session was to address current symptoms and stressors contributing to recent influx in symptoms of depression and anxiety. Eye Contact:: Good Motor Activity:: Appropriate Appearance:: Neat and Casual Speech:: Appropriate Mood:: Anxious and Depressed Affect:: Constricted Thoughts:: Linear, Logical and No evidence of hallucinations/delusions noted Staff Interventions:: psychoeducation on: (behavior activation, maintenance cycles, locus of control), CBT techniques, strengths perspective and taught coping skills (reviewed grounding techniques) Client Response:: Pt receptive of session, actively engaged throughout. Reports feeling ?extremely anxious? much of this week so far. Explained her anxi ety is at it?s worst first thing in the morning and often sets the tone for the day. If pt is able to focus on other things and continue to complete her intended routine, she reports her anxiety tends to improve. Shared however that her ongoing anxiety symptoms have been disheartening and she has struggled with increased negative thinking and hopelessness as a result. Reports she ?almost didn?t come today? and was instead going to go back to bed to try and avoid getting anxious by sleeping. Pt praised for using opposite action to get to IOP tx today. She was receptive of discussion on maintenance cycles and the impact of anxiety safety behaviors on reinforcing anxiety and contributing to increased depression as well. Connected with concept of applying behavior activation skills to begin breaking these maintenance cycles. Admits to overreliance on medication to manage her anxiety and has been inconsistent in application of calming and grounding skills. Pt reports she did not attempt to incorporate meditation in her morning routine as discussed, noting this was likely due to feeling hopeless and unable to control her anxiety. Discussed locus of control and pt able to see that although she cannot control her anxiety she does have control over how she manages it. Reports plans to begin challenging negative or pessimistic thoughts and practice more compassionate self-talk, as well as begin incorporating more regular meditation practice. Risks/Concerns:: No risks or concerns noted. Pt denies any SI, plan, or intent as of this date 05/14/23. Progress Toward Goals/Plan:: Slight regression. Pt reports increased anxiety and depression over the past few days. Self-reports increased negative thoughts and reduced application of healthy coping skills which is likely contributing to influx in symptomology. Pt reports she is continuing to do well back at work and denies any change in stressors. Pt will continue in IOP tx to increase consistent coping skill application, continue to encourage self-care activities for managing symptomology, and prevent decompensation. Time Stopped:: 10:55
--- NOTE | 2023-05-15 09:00 | BH.SGPN.GN ---
Behaviors/Verbalizations/Mental Status: [] Eye contact is good. Motor activity is appropriate. Appearance is casual. Speech is Appropriate. Mood is depressed/irritable. Affect is congruent. Thoughts are linear and logical. No evidence of psychosis. Reviewed daily check in sheet and no reports of suicidal ideations or intent. Client Response/Progress/Benefit: [] Pt participated at times during the group discussion. Attentive. Emotion for today is hopeful. Daily symptom tracker notes 10/21 for anxiety and 09/22 for depression. States that yesterday she couldn't get rid of her anxiety. Yesterday led to thoughts that she is regressing which made her very hopeless. She continues to attempt to will away the anxiety stating she woke up today and stated I'm not going to be anxious. What asked about skills that she used she could not identify any. Group pointed out that she was active, engaged with support, utilizing opposite action, and even utilized thought-reframing at times. Limited insight into coping skills or action plan yesterday or this AM. Benefited from group support, encouragement, and feedback. Will continue in IOP to prevent decompensation, increase healthy coping, and transition back to work. Narrative Note: []
--- NOTE | 2023-05-15 10:15 | BH.COMM ---
Communication Note Communication with Client Communication Note: left early due to illness. Did not attend 2nd or 3rd group.
== END 2023-05-17 23:59 ==
LOC: BHIOP 08:00
PROVIDERS: PCP Family Medicine; Referring Provider Psychiatry & Neurology Psychiatry; Visit Provider Psychiatry & Neurology Psychiatry
DX: F33.2 Major depressive disorder, recurrent severe without psychotic features (principal); F41.1 Generalized anxiety disorder; F41.0 Panic disorder [episodic paroxysmal anxiety]; F10.91 Alcohol use, unspecified, in remission
CPT/HCPCS: S9480; 90832; 90853

== ENCOUNTER 2023-05-19 09:18 | Outpatient (RCR) | payer OTHER, SELFPAY ==
--- NOTE | 2023-05-21 08:26 | BH.MTP_ITS ---
Treatment Plan Review Demographics Date of Admission:: 04/28/23 Date of Treatment Plan Review:: 05/21/23 Admitting Diagnoses:: 1. Generalized anxiety disorder 2. Panic disorder 3. Major depressive disorder, recurrent, severe without psychosis 4. Alcohol use disorder in remission for 3 years Current Diagnoses:: 1. Generalized anxiety disorder 2. Panic disorder 3. Major depressive disorder, recurrent, severe without psychosis 4. Alcohol use disorder in remission for 3 years Patient Status Patient's Response to Treatment:: Pt has responded somewhat well to treatment, however there are several areas in which pt continues to struggle. Pt has had difficulties with maintaining consistent attendance in IOP sessions and often has inconsistent engagement as well depending on whether pt wakes up with anxiety or not. Pt contributes well during individual sessions and applies coping skills outside of IOP; however this is often contingent on her mood. When pt is struggling she self-reports difficulties consistently applying skills and instead often isolates or avoids. Pt feels her medication has caused several side effects which has heightened her anxiety and ultimately impeded pt?s ability to make progress as she is struggling with concentration and retention as a result. Pt has however been able to successfully return to work on a limited basis. Status of Current Problems and Symptoms: Pt's symptoms are still prevalent, and anxiety is heightened due to medication side-effects that are preoccupying pt thoughts and impeding her ability to focus and actively apply skills. Pt continues to report negative thoughts of self/mental health diagnosis, rumination, worry about returning to work, self-doubt, and irritability. Pt's biggest stressors right now include her anxiety and medication concerns related to this, work, and parenting responsibilities. Pt reports increased ability to manage these stressors when her medications are managed, but they are still impacting pt. Pt is working on combating negative thoughts, forming new core beliefs, setting healthy boundaries, and improving use of grounding skills. Progress Problem #1: Problem Name:: Anxiety, avoidance, panic Status of Goals:: Objective 1- not complete, ongoing work encouraged. Pt reports no change in anxiety symptoms per the DSM-5. Pt continues to report anxiety about her future, setting boundaries, and work. Pt reports using calming skills, opposite action, and communicating with supports when her anxiety is mild; however, with recent medication side effects pt reports an inability to effectively apply skills or manage anxiety. Medications are being adjusted and p t is encouraged to created a coping plan for anxiety management as well. Objective 2- complete with ongoing work encouraged. Pt reports she has been using healthier coping skills to manage her stressors and is actively communicating with supports and advocating for needs to be met. Pt also is gaining skill in expressing her boundaries and is creating an anxiety management plan for return to work. Team Recommendations:: Pt is encouraged to continue working on this goal as pt can further reduce anxiety and increase emotional regulation skills. Pt encouraged to continue working on boundary setting, challenging anxious thought patterns, and maintaining self-care practices when pt returns to work. Problem #2: Problem Name:: Depression, hopelessness, guilt Status of Goals:: Objective 1- not complete, ongoing work encouraged. Per the DSM-5 pt's scores for depression have remained the same since admission. Pt reports less isolation and better functioning; however, her ability to be present and enjoy her life in the current moment is being impeded by pt anxiety. This is leading to increased hopelessness and feeling stuck as a result. Pt has been using opposite action and goal setting. Objective 2- in progress. Pt has gained awareness of the cognitive distortions and can challenge these. However, pt is struggling with practicing self-compassion and patience and she is learning how to form new core beliefs. Team Recommendations:: Tx team recommends that pt continue working on these goals as pt can benefit from identifying and reframing distortions and beginning to form new, more balanced core beliefs. Pt is also encouraged to practice setting boundaries and verbalizing her needs.
--- NOTE | 2023-05-21 09:00 | BH.SGPN.GN ---
Behaviors/Verbalizations/Mental Status: [] Pt alert and oriented, neatly dressed and groomed. Eye contact good. Motor activity appropriate. Speech within normal limits. Affect congruent, mood euthymic. Thoughts linear, logical, no signs of hallucinations or delusions. Reviewed pt?s symptom tracker, no risk for suicidal ideation, plan, or intent 05/21/23 Client Response/Progress/Benefit: []Pt responded well to session, attentive and engaged. Pt reports feeling hopeful this morning and pt shared her goal is to stay at IOP tx for the full three hours. Pt has been having a hard time managing anxiety which leads to avoidance. Pt shared her son commented on her anxiety this morning and gave pt some words of encouragement which helped pt get to IOP today. Pt is anxious about returning to work, but pt is hopeful that she can learn more skills to manage her physical anxiety symptoms and her negative thinking. Pt appeared to benefit from group support. Pt will continue IOP tx to increase engagement, reduce avoidance, and improve daily functioning. Narrative Note: []
--- NOTE | 2023-05-21 10:10 | BH.SGPN.GN ---
Behaviors/Verbalizations/Mental Status: [Patient was alert and oriented, casually dressed and groomed. Eye contact good, motor activity normal, speech within normal limits. Affect congruent, mood content. Thoughts linear, logical, no signs of hallucinations or delusions. ] Client Response/Progress/Benefit: [Patient was open and participated in group discussions. Attentive during psychoeducation on stages of change. Participated during the activity. Interactive group discussion on why change is difficult in which group verbalized that change involves the unknown, is scary, leads to uncertainly, makes one feel vulnerable, leads to fear of failure, and triggers the pressure of success. Patient shared that change can be difficult when you jump into something too quickly. Patient benefited from increased awareness of stages of changes and how emotions impact change. Will continue in IOP to promote gains, further combat distorted thinking, and improve daily functioning.] Narrative Note: []
--- NOTE | 2023-05-21 11:10 | BH.SGPN.GN ---
Behaviors/Verbalizations/Mental Status: []Pt alert and oriented, casually dressed and groomed. Eye contact good. Motor activity appropriate. Speech within normal limits. Affect congruent, mood anxious and euthymic. Thoughts linear, logical, no signs of hallucinations or delusions. Client Response/Progress/Benefit: []Pt responded well to session, attentive. Did well to engage in and process activity. Pt worked with group to relate the strategies used to overcome barriers in the activity to managing change in own life. Pt identified wanting to work on continuing to promote self-care by completing 1-2 self-care activities each week. She shared that this would continue to promote mood stability and reduce anxiety. Pt identified that scheduling specific self-care time, asking a friend to join, and communicating her goal with supports would aid in pt's ability to follow-through with making this change. Pt will continue IOP tx to further improve anxiety and mood management skills, promote continued calming skill application, and improve ability to challenge and replace thought distortions. Narrative Note: []
--- NOTE | 2023-05-21 12:27 | PCM.BH.PN_ITS ---
Progress Note Progress Note: History of Present Illness/Interim History: The patient is a 37-year-old female with a history of severe anxiety, panic attacks, depression and alcohol use disorder (sober since 2019) who is seen in follow-up at the [facility] behavioral health IOP. I last saw the patient 1 week ago and at that time her Remeron was increased from 15 mg to 30 mg p.o. daily. The patient states that she had severe side effects in the past week which started from the Effexor increased but worsened recently. I was called by phone from the staff yesterday and the patient was instructed to decrease her Effexor to 150 mg p.o. daily but she states that she did not do this because she forgot. She states that by 5 PM her symptoms are better and she did get 6 or 7 hours of sleep last night. But she was having hot flashes, nausea and vomiting and increased anxiety recently which has now resolved. But she states that she is also premenstrual and she has PMDD also and feels this could be influencing her side effects and symptoms. The patient had 3 emergency room visits for anxiety from March 28 to April 22, 2023. The patient denies passive thoughts of , suicidal ideation, plan for suicide, homicidal ideation, hallucinations, delusions or symptoms of romeo ever. She still gets panic attacks on occasion. Current Psychiatric Medications: [] Effexor XR 225 mg p.o. daily (dose increased 3 weeks ago; on this 5 years total); mirtazapine 30 mg p.o. nightly (dose increased 1 week ago); Ativan 0.5 mg p.o. as needed daily but tries not to use it; hydroxyzine 25 mg up to 3 times a day as needed for panic attacks. Mental Status Examination: [] Patient is a 37-year-old female who appears normal for stated age and is casually dressed and groomed with good hygiene. She is ambulatory with a normal gait and has no psychomotor agitation or retardation. Eye contact is good and speech is normal rate and rhythm and fluent with no pressure. Mood is depressed and anxious. Affect is mildly constricted. Thought process is goal-directed and organized. Thought content: Patient looks up side effects of medications and is very anxious about medication side effects. There is no evidence of passive thoughts of , plan for suicide, suicidal ideation, homicidal ideation, hallucinations or delusions. Reality testing is intact. Judgment is intact. Insight is limited but improving. Impulsivity moderate. Diagnoses: [] 1. Generalized anxiety disorder 2. Panic disorder 3. Major depressive disorder, recurrent, severe without psychosis 4. Alcohol use disorder in remission for 3 years 5. Work issues Plan: [] The patient will continue the IOP at [facility] as the structure, support, education and group therapy will hopefully prevent worsening of the patient's symptoms and lessen the probability of emergency room visits or admissions. She felt safe during the interview and if it anytime she does not feel safe she will let us know or go to the emergency room. The risk, options, possible complications and side effects of the medications were again discussed with the patient and she understands and accepts these. She agrees to decrease her Effexor XR down to 150 mg p.o. daily as it did not benefit her much when it was increased and could be contributing to the side effects. She will continue the Remeron at 30 mg p.o. nightly. If side effects persist we may have to decrease this back down to 15 mg. She will continue to follow-up with her outpatient providers and I will see the patient in follow-up in 2 weeks. Ativan was refilled also #10 with 0 refills at 0.5 mg as needed panic attack).
--- NOTE | 2023-05-22 10:10 | BH.SGPN.GN ---
Behaviors/Verbalizations/Mental Status: [] Eye contact is good. Motor activity is appropriate. Appearance is casual. Speech is Appropriate. Mood is anxious and euthymic. Affect is congruent. Thoughts are linear and logical. No evidence of psychosis. Client Response/Progress/Benefit: [] Client was an attentive during interactive group discussions by writing notes, asking questions, and sharing when prompted. Attentive during psychoeducation on the six types of boundaries (physical, emotional, intellectual, sexual, time, and material) AEB note-taking. Along with peers contributed to interactive discussion on defining what a boundary is in mental health. Client along with peers identified challenges to setting boundaries which included; fear of other's response, guilt, fear of losing relationships, and not knowing how to. Client along with peers identified the benefits to setting boundaries. Client shared she struggles with setting boundaries because she doesn't always know how to communicate her boundary in a healthy way and fears having to deal with confrontation. Client benefited from increased awareness and insight on the importance/benefit to setting healthy boundaries. Will continue in IOP to improve daily functioning, increase healthy coping and communication with supports, and prevent decompensation. Narrative Note: []
--- NOTE | 2023-05-22 11:10 | BH.SGPN.GN ---
Behaviors/Verbalizations/Mental Status: []Pt alert and oriented, casually dressed and groomed. Eye contact good. Motor activity appropriate. Speech within normal limits. Affect congruent, mood euthymic. Thoughts linear, logical, no signs of hallucinations or delusions. Client Response/Progress/Benefit: []Pt responded well to session, engaged and contributing. Pt attentive during psychoeducation on the different boundary styles. Able to connect impact current boundary styles impact on functioning. Pt was given a handout on strategies for healthy boundary setting. Appeared to benefit from increasing insight to boundary setting and the impacts on mental health. Pt states she struggles with having too rigid of boundaries at times which makes it difficult for her to ask for help. Pt reported she will work on this by delegating small tasks to others in her house. Will continue IOP tx to decrease anxiety, increase consistent use of healthy coping skills, and prevent decompensation.
--- NOTE | 2023-05-22 13:35 | BH.MDN_ITS ---
Multi-Disciplinary Note Note 45-min Individual: Time Started:: 09:10 Date: 05/22/23 Purpose of session/treatment goals addressed:: Purpose of this session was to work with pt to identify coping plan to address PMDD sx as pt reflected this had a significant influence on her mood stability in the last week. Motor Activity:: Appropriate Appearance:: Neat and Casual Speech:: Appropriate Mood:: Anxious and Dysthymic Affect:: Congruent Thoughts:: Linear, Logical and No evidence of hallucinations/delusions noted Staff Interventions:: thought challenging, motivational interviewing, CBT techniques, strengths perspective and goal setting Client Response:: Pt receptive of session, actively engaged throughout. Reports feeling a little anxious still, but much less than the past several days. Attributes sx improvements in part to reducing her effort from 225mg back to 150mg. Shared she has not longer been experiencing the physical side effects which has reduced anxiety. Additionally, attributes this to the realization that her PMDD significantly impacts her mental health state and that she has struggled during the week leading up to her period in the past. Pt self-reports limited engagement in tx and poor skill application over the past week and a half, stating ?I felt like shit so I didn?t do anything. I wasn?t doing my hair or makeup, which isn?t me, just because I didn?t feel like it?. Shared that she and her had discussed the significant change in mood and he expressed concerns regarding how her cycle would impact her mental health in future months. Reports they began a discussion on creating a concrete coping plan for the week leading up each month. 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 Receptive of working with therapist to discuss additional skill and steps she can take to prevent decompensation during this time in the future. Pt identified having her help hold her accountable to shower regularly, plans to pick out outfits she feels good in for the week ahead of time, plans to use opposite action to continue to journal and meditate, as well as go for walks in her rober[place] while her makes dinner to decompress from the day. Pt shared she is trying to be more accepting of her mental health and rather than fight it, find ways to better manage it. However, she is continuing to struggle with morning anxiety and some depression as a result. Pt expressed plans to get back into meditation each morning as she had previously planned to do, as well as use stretching in the morning as a tool to reduce anxious energy first thing in the morning. Discussed wanting to feel more like herself as she has not recently. 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 Risks/Concerns:: None noted. Pt denies SI, plan, or intent as of this date. Progress Toward Goals/Plan:: Progress noted. Pt has made gains since last session AEB reports of increased use of coping skills such as journaling and reaching out to her supports, improved follow-through with personal hygiene routine, and improved mood. Pt reports decrease medication side effects as well which was a significant stressor. Pt has been prescribed Ativan short-term and is aware of the risks of over reliance on this medication long-term. Pt is aware of and reports not wanting to remain on the medication long-term and was receptive of creating a concrete coping plan for managing her PMDD which was a significant stressor in the past week. Pt continues to report anxiety and depression sx, rumination, restlessness, low motivation, and irritability. Recommended continued IOP tx to improve coping skill consistency, reduce anxiety, and continue to prevent decompensation. Time Stopped:: 09:58
--- NOTE | 2023-05-27 10:32 | BH.COMM ---
Communication Note Communication with Client Communication Note: Pt was scheduled for IOP group and individual sessions on this date. However, pt did not show or call to cancel. Therapist attempted to contact pt but was unable to reach and a message was left encouraging pt to return this therapist's phone call.
--- NOTE | 2023-05-28 10:10 | BH.SGPN.GN ---
Behaviors/Verbalizations/Mental Status: [] Eye contact is good. Motor activity is appropriate. Appearance is casual. Speech is Appropriate. Mood is anxious. Affect is congruent. Thoughts are linear and logical. No evidence of psychosis. Client Response/Progress/Benefit: [] Pt was an active participant during group discussions and group activities. Attentive during psychoeducation. Engaged during activity in which they identified which type of foods (i.e. carbs, sugar, salt, fast food, caffeine, etc) they seek out when sad, tired, angry, rushed, anxious, etc. Pt was able to identify the impact that certain foods have on their mental health through group example which was beneficial. Increased awareness of the connection between nutrition and mental health. Will continue in IOP to prevent decompensation, increase healthy coping, stabilize anxiety so she could return to work full-time. Narrative Note: []
--- NOTE | 2023-05-29 09:19 | BH.MDN_ITS ---
Multi-Disciplinary Note Note 30-min Individual: Time Started:: 11:34 Date: 05/28/23 Purpose of session/treatment goals addressed:: Purpose of this session was to address tx plan goal #1 and create a small exposure goal addressing pt social anxiety. Eye Contact:: Good Motor Activity:: Appropriate Appearance:: Neat and Casual Speech:: Appropriate Mood:: Euthymic and Anxious Affect:: Congruent Thoughts:: Linear, Logical and No evidence of hallucinations/delusions noted Staff Interventions:: motivational interviewing, CBT techniques, strengths perspective and goal setting (created a small social anxiety exposure goal.) Client Response:: Pt receptive of session, engaged throughout. Shared leaving process group early due to increased anxiety after becoming triggered when another group member began discussing increased urges to relapse on a lcohol. Pt has been sober for several years and shared that other?s discussing alcohol and drug abuse or misuse is often anxiety provoking and uncomfortable for her. Pt is able to discuss skills for maintaining sobriety and does not avoid addressing her own triggers but has set a boundary for herself that she will not remain in an environment where someone is discussing or potentially normalizing substance misuse. Reports that outside of increased anxiety during the process group session, she feels she is overall seeing much improvement in her ability to manage anxiety and re-engage in activities she enjoys without fears she will not be able to function or experience panic. Shared that work has been much better as a result and that she has followed through with decorating her chair which has helped the space to feel more like her own as well. Pt discussed ongoing morning anxiety but that this has been more manageable as well and indicated starting the day with a shower, a podcast, and an affirmation has aided with this. Pt reports she has made some progress regarding her social anxiety as well and is now more comfortable going to a gas station or convenience store alone; however, continues to struggle with anxiety surrounding going to the gym or an exercise class. Pt reports this is something that particularly bothers her as exercise has been an important component of her self-care in the past. Pt shared she used to do cross-fit but would like to get back into something less intense such as yoga. Receptive of discussion on importance of small exposures to anxiety to reduce the power of anxious thoughts. Pt indicated plans to attend one yoga class with a friend at a location she has been to and felt comfortable in before in order to reduce anxiety related to group exercise. Risks/Concerns:: None noted, pt denies SI, plan, or intent as of this date 05/28/23 Progress Toward Goals/Plan:: Progress indicated as pt reports improved mood, reduced anxiety and no panic sx over the past several days. Shared increased engagement in activities she enjoys and greater hope for the future. Pt has been able to successfully complete several self-care goals as a result and completed her first full day back to work as well. Pt would like to continue to work on returning to a full-time schedule, further reducing anxiety symptoms- specifically those in the morning, and continue to maintain the progress she has made. Pt is planning to continue with Dr. Yuen for outpatient medication management and has been given a list of providers in network in the area to contact to establish individual outpatient counseling services with as well. Pt will remain in IOP tx to further improve mood stability, continue to address social anxiety sx, and prevent decompensation. Time Stopped:: 12:00
--- NOTE | 2023-05-29 09:19 | BH.COMM ---
Communication Note Communication with Client Communication Note: Communication Note: Pt was scheduled for IOP group and individual sessions on this date. However, pt did not show or call to cancel. Therapist attempted to contact pt but was unable to reach and a message was left encouraging pt to return this therapist's phone call.
--- NOTE | 2023-06-04 09:27 | BH.COMM ---
Communication Note Communication with Client Communication Note: Pt left during process group session due to her child being sent home from school for illness.
--- NOTE | 2023-06-09 09:28 | BH.COMM ---
Communication Note Communication with Client Communication Note: Pt returned therapist call and indicated she has been sick which is why she did not show for group today. Stated she does not believe she will be able to attend tomorrow either. Pt additionally reported difficulties in filling her propranolol script as well. Therapist will follow-up with the IOP program [facility] regarding medication concerns.
--- NOTE | 2023-06-09 09:30 | BH.COMM ---
Communication Note Communication with Client Communication Note: Pt was scheduled for IOP group and individual sessions on this date. However, pt did not show or call to cancel. Therapist attempted to contact pt but was unable to reach and a message was left encouraging pt to return this therapist's phone call. Discussed IOP attendance requirements in message as well.
--- NOTE | 2023-06-10 15:15 | BH.DS_ITS ---
Discharge Summary Demographics Discharge Date: 06/10/23 Presenting Problems at Admission:: The patient is a 37-year-old female with a history of anxiety, panic attacks, and alcohol use disorder (sober since 2019) who was referred to the [facility] behavioral health [facility] by Dr. Yuen, her psychiatrist. 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 Pt has been off work for the past two weeks as a result which is financially a stressor. She has had 3 recent emergency visits for panic attacks and anxiety which occurred on March 28, April 05 and April 22, 2023. The patient used to medicate her anxiety with alcohol but states that she has not used any alcohol since attending rehab for alcohol in 2019. Her mood is sad and she endorses worthlessness, hopelessness and guilt, anhedonia, inconsistent appetite, low energy levels and decreased concentration. She has a history of cutting as a teenager for 1 year but no self-harm since. She denies seizure, head trauma and eating disorder. She denies also plan for suicide, suicidal ideation, homicidal ideation, hallucinations, delusions or symptoms of romeo ever. Pt?s symptoms are currently impacting her ability to function at baseline. Discharge Diagnoses:: 1. Generalized anxiety disorder 2. Panic disorder 3. Major depressive disorder, recurrent, severe without psychosis 4. Alcohol use disorder in remission for 3 years Reason for Discharge:: Pt has struggled with consistent attendance since she returned to work. Pt attended IOP only one time last week and did not show for scheduled sessions for IOP this week. Pt stated keeping up with IOP is getting overwhelming because she is returning to a full-time schedule next week. Pt reported she would like to discharge from [facility] effective today. Treatment Progress During Treatment & Response: Pt was showing some improvement AEB decrease in depression and anxiety. Pt has been able to cope more effectively with the stressors of returning to work and establishing more concrete boundaries within the workplace. Pt did report recent spike in anxiety about her medications running out but did well to manage this without reaching the point of panic as she has in the past. Pt has reported improvement with how she manages her anxiety, especially first thing in the morning, by practicing grounding skills, meditation, and journaling. Pt occasionally still struggles with managing her emotions around the time of her period, but has reported improvement with this as well. Issues Still to be Addressed:: Pt would benefit from continued counseling to address and manage her ongoing anxiety, better cope with caregiving stressors, and continue to work on challenging negative core beliefs. Discharge Recommendations/Instructions:: Pt agreeable to follow up with her outpatient psychiatrist, Dr. Yuen, for medication management and has been given a list of providers in the area for outpatient counseling and is encouraged to follow-up. Pt declines wanting to pursue outpatient individual counseling at this time, however. Discharge Handout
== END 2023-06-11 07:51 | disposition home or self-care (01) ==
LOC: BHIOP 09:18
PROVIDERS: PCP Family Medicine; Referring Provider Psychiatry & Neurology Psychiatry; Visit Provider Psychiatry & Neurology Psychiatry
DX: F33.2 Major depressive disorder, recurrent severe without psychotic features (principal); F41.1 Generalized anxiety disorder; F41.0 Panic disorder [episodic paroxysmal anxiety]; F10.91 Alcohol use, unspecified, in remission
CPT/HCPCS: S9480; 90832; 90834; 90853

== ENCOUNTER 2023-07-15 06:05 | Emergency (ER) | payer OTHER, SELFPAY ==
[2023-07-15 06:06] VITALS: BP 140/101; PULSE 104; RESP 15; TEMP 36.3; O2SAT 99; BMI 29.3
--- NOTE | 2023-07-15 06:21 | EKG12_ITS ---
Test Reason : Blood Pressure : / mmHG Vent. Rate : 093 BPM Atrial Rate : 093 BPM P-R Int : 136 ms QRS Dur : 090 ms QT Int : 372 ms P-R-T Axes : 069 021 055 degrees QTc Int : 462 ms Normal sinus rhythm Low voltage QRS Borderline ECG Confirmed by COOKIE MCDONALD, DESIREE ([id number]), video tape editor VINAY EDWARD ([id number]) on 07/16/2023 11:02:50 AM Referred By: Confirmed By:DESIREE GARY MD
--- NOTE | 2023-07-15 06:22 | EX.ED.DYSGE1 ---
HPI History of Present Illness Chief Complaint: Anxiety Informant: patient Narrative Narrative: Patient presents secondary to anxiety and shortness of breath. She has longstanding anxiety and is following with Dr. Yuen at [facility]. Patient states last Friday or Friday she started Prozac 20 mg in addition to her other psych medications. She states that she is not feeling any improvement and woke up this morning with shortness of breath and chest tightness along with nausea. Patient initially felt that she may be having a reaction to the Prozac, but does admit that these are all symptoms that she has had with her longstanding anxiety as well. She does have Ativan to use as needed at home and her last dose was yesterday. [facility] Medical History Alcohol abuse Back problem Chronic midline thoracic back pain Chronic neck pain PEDRO (generalized anxiety disorder) Intertrigo Macromastia Major depressive disorder, recurrent severe without psychotic features Panic disorder PMDD (premenstrual dysphoric disorder) Shoulder pain Home Medications mirtazapine 30 mg tablet (Remeron) 30 mg PO QHS 30 days #30 tabs 05/14/23 [Rx Last Taken Unknown] venlafaxine 150 mg capsule,extended release 24 hr (Effexor XR) 150 mg PO DAILY 30 days #30 caps 05/21/23 [Rx Last Taken Unknown] ondansetron HCl 8 mg tablet 8 mg PO Q8H PRN nausea and vomiting #14 tabs 07/03/23 [Rx Last Taken Unknown] fluoxetine 20 mg capsule (Prozac) 20 mg PO DAILY #30 caps 07/09/23 [Rx Last Taken Unknown] lorazepam 0.5 mg tablet (Ativan) 0.5 mg PO DAILY PRN anxiety 30 days #15 tabs 07/09/23 [Rx Last Taken Unknown] hydroxyzine HCl 25 mg tablet See Rx Instructions .Route .COMPLEX #90 tabs 07/14/23 [Rx Last Taken Unknown] Allergy/AdvReac Type Severity Reaction Status Date / Time No Known Allergies Allergy Verified 07/15/23 06:12 Family History Other Alcohol abuse Anxiety Bowel disease Colon cancer Depression Social History household members: spouse and children number of children: 2 current occupational status: employed current occupation: [employer] history of recent travel: No sexually active: Yes Smoking Status: Current every day smoker tobacco type: e-cigarettes Electronic Cigarette Use: with nicotine alcohol intake: former substance use type: does not use what type of physical activity do you participate in: aerobics and weight training seatbelt use: always do you feel safe at home: Yes additional social history: - Calvin Does Take Aspirin As Needed Does Take Ibuprofen As Needed ROS ROS ED Constitutional Constitutional ED: Denies chills or fever(s) Eyes Eyes: Denies discharge from eye(s) ENT ENT ED: Denies discharge from eye(s), rhinorrhea or sore throat Cardiovascular Cardiovascular: Reports chest pain; Denies palpitations Respiratory/Chest Respiratory/Chest: Reports dyspnea; Denies cough Gastrointestinal Gastrointestinal: Reports nausea; Denies abdominal pain, diarrhea or vomiting Musculoskeletal Musculoskeletal: Denies back pain or extremity pain Integumentary Denies Abrasions or rash Neurologic Neurologic: Denies headache(s) or weakness Psychiatric Psychiatric: Reports anxiety; Denies suicidal ideation or suicidal thoughts Allergic/Immunologic Allergic/Immunologic ED: Denies lip swelling or urticaria EXAM Physical Exam Const Vital Signs: 07/15/23 06:06 Temperature 97.4 F L Temperature Source Oral Pulse Rate 104 H Respiratory Rate 15 Blood Pressure 140/101 H Blood Pressure Mean 114 Pulse Ox 99 Oxygen Delivery Method Room Air Positive well nourished and well developed General Appearance ED: well developed HEENT Reports moist mucous membranes Eyes EOMs intact bilaterally Chest Wall inspection of chest normal and palpation of chest normal Resp normal respiratory effort and clear to auscultation bilaterally Cardio regular rate and regular rhythm GI non-tender Palpation: soft Extremity normal to inspection Neuro oriented x3 and no sensory deficits noted Motor Exam: strength 5/5 throughout Psych Mood & Affect: anxious Skin no rashes or lesions noted MDM MDM MDM Narrative Medical decision making narrative: 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 IV line initiated. EKG obtained to evaluate for cardiac arrhythmia/ischemia. Chest x-ray obtained to evaluate for acute lung pathology, cardiac size, or mediastinal abnormality. Labwork obtained to evaluate for leukocytosis, anemia, and electrolyte derangement. Patient will be given IV Ativan for her anxiety. History & Record Review Discussion w/independent historian: Patient Additional record(s) reviewed:: Prior outpatient record, Prior ED visit and Prior labs Lab Data Attestation: I reviewed the patient's lab results. Labs: Laboratory Results - last 24 hr 07/15/23 06:30 WBC 15.3 H RBC 4.80 Hgb 14.1 Hct 43.7 MCV 91.0 MCH 29.4 MCHC 32.3 RDW Std Deviation 44.0 H RDW Coeff of Tonya 13.1 Plt Count 332 MPV 9.0 Immature Gran % (Auto) 0.700 Neut % (Auto) 81.0 H Lymph % (Auto) 11.4 L [place] % (Auto) 4.2 Eos % (Auto) 2.0 Baso % (Auto) 0.7 Absolute Neuts (auto) 12.4 H Absolute Lymphs (auto) 1.75 Nucleated RBC % 0 Sodium 140 Potassium 3.8 Chloride 109 H Carbon Dioxide 26.0 Anion Gap 5 BUN 18 Creatinine 0.90 Estim Creat Clear Calc 73.90 Est GFR (MDRD) Af Amer 90 Est GFR (MDRD) Non-Af 74 BUN/Creatinine Ratio 19.9 Glucose 147 H Calcium 8.8 Troponin I High Sens 4 Radiography Chest X-Ray - ED: 1 View, Read by ED Physician, Normal, Heart, Lungs and Mediastinum Diagnostic Testing: Clinical Impression(s) from Imaging Studies Chest X-Ray 07/15/23 06:25 IMPRESSION: No radiographic evidence of acute cardiopulmonary disease. Electronically Signed: Chin Elizabeth MD at 7:07 EST Reading Location ID and State: [facility] / [place] , Service support , EKG Initial EKG: Attestation: I personally reviewed and interpreted this EKG as follows: Interpretation: Sinus Rhythm (Sinus at 93 with no acute ischemia.) Treatment and Re-Evaluation :: CBC was elevated white count 15.3 with 81% neutrophils. On review of prior records patient has frequently run elevated white counts. Chemistry studies are unremarkable other than a glucose of 147. Troponin is normal at 4. Chest x-ray per my interpretation reveals no acute abnormality. EKG is sinus rhythm at 93 bpm with no acute ischemia. Patient was given a liter IV fluids along with a dose of Zofran for continued nausea. On repeat evaluation patient states her nausea is improved. She still has anxiety and states it is slightly improved. She will be given a second dose of Ativan. She will get the remainder of her IV fluids. Patient is not suicidal or homicidal. She is established with a psychiatrist in [facility]. I anticipate that she will be able to be discharged after her second dose of Ativan and will call Dr. Yuen's office today for further instructions or recommendations. She is advised that she can always return if she has any concerns. She is comfortable this plan. Patient be signed out to oncoming physician for observation while awaiting remainder of IV fluid administration. Discharge Plan Triage Chief Complaint: Anxiety ED Provider: Luz Patton Dx/Rx/DC Orders Clinical Impression: Anxiety Instructions: ED Anxiety Reaction Prescriptions: No Action ondansetron HCl 8 mg tablet 8 mg PO Q8H PRN (Reason: nausea and vomiting) Qty: 14 0RF fluoxetine [Prozac] 20 mg capsule 20 mg PO DAILY Qty: 30 2RF lorazepam [Ativan] 0.5 mg tablet 0.5 mg PO DAILY PRN (Reason: anxiety) 30 Days Qty: 15 0RF mirtazapine [Remeron] 30 mg tablet 30 mg PO QHS 30 Days Qty: 30 1RF venlafaxine [Effexor XR] 150 mg capsule,extended release 24hr 150 mg PO DAILY 30 Days Qty: 30 1RF hydroxyzine HCl 25 mg tablet See Rx Instructions .ROUTE .COMPLEX Qty: 90 1RF Dose Instruction: take 1 tablet by mouth three times a day if needed anxiety Rx Instructions: take 1 tablet by mouth three times a day if needed anxiety Primary Care Provider: Roxy Barrios Referrals: Roxy Barrios MD [Primary Care Provider] - Margarito Yuen DO [Med Staff - Icer Machine Operator] - As soon as possible Disposition Disposition: Home, Self Care
--- NOTE | 2023-07-15 06:25 | RAD_ITS ---
EXAM: XR CHEST, 1 VIEW CLINICAL INDICATION: sob sob TECHNIQUE: Frontal view of the chest. COMPARISON: Chest x-ray 05/28/2023. FINDINGS: LUNGS AND PLEURAL SPACES: Unremarkable. No consolidation or edema. No pneumothorax. No effusion. HEART: Unremarkable. Cardiac silhouette not enlarged. MEDIASTINUM: Central airways and mediastinal contour are unremarkable. BONES/JOINTS: Unremarkable. No acute fracture. SOFT TISSUES: Unremarkable. RAD/Chest 1 View (Portable) IMPRESSION: No radiographic evidence of acute cardiopulmonary disease. Electronically Signed: Chin Elizabeth MD at 7:07 EST Reading Location ID and State: [facility] / [place] , Service support ,
[2023-07-15] MEDS: LORazepam 2 MG/ML Syringe 0.5 MG IV ×2 (06:35→07:40)
[2023-07-15 06:43] LABS: Absolute Lymphocyte Count 1.75 X10^3/uL (0.83-4.51); Absolute Neutrophil Count 12.4 X10^3/uL (2.0-7.7); Basophil# 0.11 X10^3/uL; Basophil% 0.7 % (0-1); Hematocrit 43.7 % (37-47); Hemoglobin 14.1 g/dL (12.0-15.0); Lymphocyte # 1.75 X10^3/ul (0.83-4.51); Lymphocyte % 11.4 % (19-41); Mean Corp Hgb Conc 32.3 g/dL (32-36); Mean Corpuscular Hgb 29.4 pg (27.0-32.0); Monocyte# 0.64 X10^3/uL; Monocyte% 4.2 % (0-10); NRBC Flagged by Analyzer 0 % (0-5); Neutrophil # 12.42 X10^3/uL (2.7-7.7); Platelet Count 332 K/mm3 (150-450); RBC Distribution Width CV 13.1 % (11.6-14.6); White Blood Count 15.3 K/mm3 (4.4-11.0)
[2023-07-15 06:59] LABS: Anion Gap 5 (5-15); BUN 18 mg/dL (7-18); BUN/Creat Ratio 19.9 RATIO (10-20); Calcium,Total 8.8 mg/dL (8.5-10.1); Chloride 109 mmol/L (98-107); EST Glomerular Filtration Rate 74 mL/min (>60); Est Glom Filt Rate - Afr Amer 90 mL/min (>60); Glucose 147 mg/dL (74-106); Potassium 3.8 mmol/L (3.5-5.1); Sodium Level 140 mmol/L (136-145); Troponin-I HS 4 pg/mL (3.0-54.0)
[2023-07-15] MEDS: Ondansetron 4 MG/2 ML Vial IV (07:12)
[2023-07-15] MEDS: 0.9% Normal Saline (1000mL) 1,000 ML 999 ML IV (07:12)
[2023-07-15 08:33] VITALS: O2SAT 97
[2023-07-15 09:55] VITALS: BP 129/81
== END 2023-07-15 09:55 | disposition home or self-care (01) ==
PROVIDERS: Emergency Provider Emergency Medicine; PCP Family Medicine; Visit Provider Emergency Medicine
DX: F41.9 Anxiety disorder, unspecified (principal); R06.02 Shortness of breath; R11.0 Nausea; R07.89 Other chest pain; F17.290 Nicotine dependence, other tobacco product, uncomplicated; Z79.899 Other long term (current) drug therapy
CPT/HCPCS: 71045; 80048; 84484; 85025; 93005; 96361; 96374; 96375; 96376; 99284; J7030; A4216; J2405

== ENCOUNTER 2024-06-07 08:00 | Outpatient (RCR) | payer OTHER, SELFPAY ==
--- NOTE | 2024-06-07 09:05 | BH.SGPN.GN ---
Behaviors/Verbalizations/Mental Status: [] Eye contact is good. Motor activity is appropriate. Appearance is casual. Speech is Appropriate. Mood is anxious. Affect is congruent. Thoughts are linear and logical. No evidence of psychosis. Reviewed daily check in sheet and no reports of suicidal ideations or intent. Client Response/Progress/Benefit: [] Pt participated when prompted. Attentive. Today was pt?s first day in [facility] level of care. Briefly introduced herself. States that she entered [facility] due to ?really bad anxiety?. According to pt she is hoping to ?overcome her panic attacks?. Limited progress as this was her first day. [place] continue in [facility] to prevent decompensation, decrease panic attacks, increase healthy coping, and improve functioning to return to work. Narrative Note: []
--- NOTE | 2024-06-07 09:17 | BH.COMM ---
Communication Note Communication with Client Communication Note: Met with pt to complete initial paperwork and administer an updated CSSR-S screening and risk assessment since last IOP admission on 04/30/23. Pt is a low risk as pt does not report any suicidal ideations, plan, or intent within the last month. Pt has no history of prior attempts. Pt denies any passive thoughts of or ambivalence to living in the past year. Children and are pt's biggest protective factors. Pt a Discussed case with Dr. Rivera and pt will be admitted to [facility] tx with a diagnosis of Generalized Anxiety Disorder (F41.1)
--- NOTE | 2024-06-07 10:15 | BH.SGPN.GN ---
Behaviors/Verbalizations/Mental Status: []Eye contact is good. Motor activity is appropriate. Appearance is casual. Speech is Appropriate. Mood is depressed. Affect is congruent. Thoughts are linear and logical. No evidence of psychosis. Client Response/Progress/Benefit: [] Pt participated, AEB taking notes and providing input in group discussion when prompted. Attentive during psychoeducation. Pt engaged during interactive discussion in which the group defined self-care and discussed its benefits. Group discussed barriers to engaging in self-care. Group members together came up with not having time, it being selfish, not feeling like they deserve it, and not having energy. Pt stated their personal barrier is feeling like she does not have time for self-care. Pt participated in small groups where they worked to identified and challenged common self-care ?myths?. Benefited from increased awareness of self-care, its benefits, and the consequences of not utilizing self-care strategies. Will continue PHP tx to prevent decompensation, gain healthy coping skills, and improve daily functioning. Narrative Note: []
--- NOTE | 2024-06-07 11:15 | BH.SGPN.GN ---
Behaviors/Verbalizations/Mental Status: []Eye contact is good. Motor activity is appropriate. Appearance is casual. Speech is Appropriate. Mood is depressed. Affect is congruent. Thoughts are linear and logical. No evidence of psychosis. Client Response/Progress/Benefit: []Pt engaged in discussion reviewing different areas of self-care and completing self-assessment of current self-care, as well as providing input throughout discussion. Did well to complete self-care self-assessment worksheet. Pt identified current self-care practices and what self-care activities Pt wants to start using. Pt selected psychological self-care to improve and pt wants to do this by focusing on learning new things in IOP. ?Appeared to benefit from completing the self-care evaluation and gaining insights into current self-care practices, as well as identifying areas in which Pt would like to improve upon. Pt will continue PHP tx to prevent decompensation, increase application of healthy coping skills, and improve daily functioning. Narrative Note: []
--- NOTE | 2024-06-07 12:10 | BH.MDN ---
Multi-Disciplinary Note Note 45-min Individual: Time Started:: 12:10 Date: 06/07/24 Purpose of session/treatment goals addressed:: Utilized the session to review current symptoms/struggles and psychosocial history. Also used the session to identify goals for treatment. Eye Contact:: Good Motor Activity:: Appropriate Appearance:: Casual Speech:: Appropriate Mood:: Depressed Affect:: Flat Thoughts:: Linear, Logical and No evidence of hallucinations/delusions noted Staff Interventions:: rapport building, treatment planning and other (reviewed psychosocial hx) Client Response:: According to pt she entered PHP due to panic attacks. She reports that she is overwhelmed with what has to be done. Anxiety primarily occurs in the morning and is debilitating. According to pt she will often lay in bed paralyzed with her thoughts. I just fear the day. Due to anxiety and mental health struggles she has not been able to function at home or work. Has not been to work for the past 2 weeks due to anxiety/panic. Reports panic attacks almost daily. According to pt she will wake up in the AM to help her kids get on the school bus and then go back to sleep. Sleep is primary coping skill used to escape and pass time. Feels like a burden stating I feel lazy and like I'm not contributing. Tearful at times. Hopelessness and worthlessness. No pleasure in activities. No confidence at her job. No specific triggers to anxiety/panic just a lot of thinking about my anxiety and being unable to function. Isolation and avoidance. She has had two psychiatric admissions in the past year due to anxiety. Limited benefit from counseling and medications. Risks/Concerns:: Denies suicidal ideations, plan, or intent. No hx of attempts. Progress Toward Goals/Plan:: Limited progress as this was pt's first day. She has been in [facility] on two previous occasions however never successfully complete the program. Her anxiety continues to exacerbate despite medication and counseling interventions. Limited coping skills. Her goals are to decrease anxiety and improve functioning to return to work. Plan is to start PHP to prevent decompensation/re-admission to [facility], increase healthy coping, and improve functioning. Time Stopped:: 12:50
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
--- NOTE | 2024-06-07 12:10 | BH.MTP ---
Master Treatment Plan Patient Information Program Physician:: Rosa M Thacker Primary Therapist:: Fransico Hoover Psychiatric Diagnoses Psychiatric Diagnoses:: 1. Generalized anxiety disorder 2. Panic disorder 3. Major depressive disorder, recurrent, severe without psychosis 4. Alcohol use disorder in remission for 4 years Diagnosis Code(s):: F41.1 Estimated LOS Estimated LOS (in weeks):: 1 Problem/Goal #1 Problem/Goal #1 Stated Goal:: Stabilize anxiety level while increasing ability to function on a daily basis. Description of Barriers: Stigma, poor follow up with treatment (two previous incomplete IOP admissions), limited benefit from medications, Functional Impact: Currently off work due to anxiety/panic, feels like a burden to family due to anxiety, isolation/avoidance of family events due to anxiety. Goal Relevant Strengths/Supports: Resilient, motivated Objectives Objective #1: Stated Objective: Identify and Implement 3 calming and coping strategies to reduce overall anxiety and to cope with the experience of panic. Interventions: Through individual and group counseling will teach client coping skills to improve emotional regulation, mindfulness, and distress tolerance to help client cope with anxiety in the moment. Discharge Criteria: Able to identify and utilize 3 calming skills for in the moment anxiety. Target Date: 06/16/24 Review Date: 06/16/24 Objective #2: Stated Objective: Verbalize an accurate understanding of panic attacks, anxiety, and agoraphobia and their treatment Interventions: Through individual and group counseling will provide education on how panic attacks are ?false alarms? of danger, not medically dangerous, not a sign of weakness or craziness, common but often lead to unnecessary fear and avoidance: correct myths and misconceptions about panic symptoms (going crazy, dying, losing control) that contribute to fear and avoidance. Discharge Criteria: Able to verbalize basic understanding on anxiety and panic attacks as well as established methods to treat. Target Date: 06/16/24 Review Date: 06/16/24 Problem/Goal #2 Problem/Goal #2 Stated Goal:: Client will reduce depression and hopelessness AEB self-report. Description of Barriers: Stigma, poor follow up with treatment (two previous incomplete IOP admissions), limited benefit from medications, Functional Impact: Crying spells, low energy, unhealthy coping (sleep), low self-esteem, and anhedonia which are impacting functioning. Goal Relevant Strengths/Supports: resilient, motivated Objectives Objective #1: Stated Objective: Client will identify 2-3 cognitive distortions that lead to rumination, hopelessness, and negative thoughts and learn 2-3 ways to manage these thoughts to better manage anxiety. Interventions: Through individual and group counseling will provide education on the most common cognitive distortions and teach client the connection between thoughts, emotions, and feelings. Discharge Criteria: Able to identiy 2-3 cognitive distortion commonly used as well as strategies to challenge/reframe. Target Date: 06/16/24 Review Date: 06/16/24
--- NOTE | 2024-06-08 09:05 | BH.SGPN.GN ---
Behaviors/Verbalizations/Mental Status: [] ?Pt alert and oriented, casually dressed and groomed. Eye contact good. Motor activity appropriate. Speech within normal limits. Affect congruent, mood anxious and depressed. Thoughts linear, logical, no signs of hallucinations or delusions. Reviewed pt?s symptom tracker, no risk for suicidal ideation, plan, or intent 06/08/24 Client Response/Progress/Benefit: [] Pt receptive of session, engaged throughout and appearing to benefit from group support and encouragement. Identified current mental health wins as getting her kids ready and to a softball tournament over the weekend. Additional win noted as getting to group today despite feeling anxious and overwhelmed. Current stressor noted as negative thoughts telling pt that she will not continue to make progress with her mental health. Did well to challenge these distortions reinforcing pt?s anxiety. Benefited from group supportive feedback, encouragement, and support. Recommended continued IOP tx to prevent decompensation, improve mood stability, and promote skill application. ? Narrative Note: []
--- NOTE | 2024-06-08 10:15 | BH.SGPN.GN ---
Behaviors/Verbalizations/Mental Status: [] Eye contact is good. Motor activity is appropriate. Appearance is casual. Speech is Appropriate. Mood is anxious. Affect is congruent. Thoughts are linear and logical. No evidence of psychosis. Client Response/Progress/Benefit: [] Pt was an engaged participant AEB listening attentively to others, taking notes, and providing feedback in small group discussions. Attentive during psychoeducation AEB by note taking and providing some input. Pt worked along with peers in small groups to define inappropriate guilt and appropriate guilt. Interactive discussion on examples of both inappropriate and appropriate guilt. Worked well in small group with peers where they identified example of inappropriate vs appropriate guilt and the impact inappropriate guilt can have on MH. Benefited from increased awareness of guilt and the differences between appropriate and inappropriate guilt. Plan is to continue in PHP to prevent decompensation, improve functioning to return to work, decrease panic attacks, and increase coping strategies. Narrative Note: []
--- NOTE | 2024-06-08 11:15 | BH.SGPN.GN ---
Behaviors/Verbalizations/Mental Status: []Pt alert and oriented, casually dressed and groomed. Eye contact fair. Motor activity appropriate. Speech within normal limits. Affect flat, mood depressed and anxious. Thoughts linear, logical, no signs of hallucinations or delusions. Client Response/Progress/Benefit: []Pt engaged participant AEB listening attentively to others and providing input throughout group. Pt worked within their small group to identify strategies to manage inappropriate guilt. Identified a personal example of inappropriate guilt as ?feeling bad for cancelling appointments with clients when she is sick?. Provided insight that this cues a feeling of ?fear of disappointing others? Pt wants to work on combatting inappropriate guilt by correcting the distortions and practicing sitting with the uncomfortable. Pt seemed to benefit from learning about strategies to manage appropriate and inappropriate guilt. Pt to continue PHP level of care to continue to improve functioning, prevent decompensation, and promote mood stability. ?
--- NOTE | 2024-06-08 12:10 | BH.MDN_ITS ---
Multi-Disciplinary Note Note 60-min Individual: Time Started:: 12:10 Date: 06/08/24 Purpose of session/treatment goals addressed:: Utilized the session to review current symptoms and progress. Began to identify goals and strategies to incorporate to decrease daily panic attacks. Eye Contact:: Fair Motor Activity:: Appropriate Appearance:: Casual Speech:: Appropriate Mood:: Anxious and Depressed Affect:: Congruent Thoughts:: Linear, Logical and No evidence of hallucinations/delusions noted Staff Interventions:: thought challenging, psychoeducation on: (connection between thoughts, feelings, and behaviors. ), treatment planning and goal setting Client Response:: Pt tearful throughout the session. Mental health, anxiety, panic, and depression are impacting her functioning and she feels like a burden to her family. She is scheduled to take her daughter to softball practice today however is fearful that she is going to get anxious and have a panic attack. Doubting her ability to follow through with this task. what if I get anxious what if I have a panic attack. Urges to avoid and isolation which has exacerbated her anxiety for the past year leading to inability to function at home and work. Discussed healthy strategies to utilize this afternoon including mindfulness, distraction, thought-reframing, and changing perspectives. Receptive to education on the connection between thoughts, feelings, and behaviors. Risks/Concerns:: Denies active suicidal ideations, plan, or intent. No risks or concerns noted. Progress Toward Goals/Plan:: Today was pt's second day in [facility]. It has been very anxiety-provoking for her to engage in group counseling due to social anxiety. According to pt is has also been very difficult to leave my bed in the AM to get here. Strong urges to avoid, isolate, and sleep to escape which she has done for the past year. Settled into an unhealthy anxiety cycle which has limited her functioning. Tearful I don't think I will ever get better. Struggles to identify her negative automatic thoughts and be vulnerable. is asking to help and be informed however she is not truthful regarding her distress due to stigma, feeling embarrassed, and not wanting to burden him. Given taks to complete thought log to help therapist better understand negative thoughts and her unrealistic expectations of her functioning. Use should statements often I should be working I should be able to manage my anxiety. When she cannot do these feels hopeless and like a failure. Time Stopped:: 13:00
--- NOTE | 2024-06-09 09:05 | BH.SGPN.GN ---
Behaviors/Verbalizations/Mental Status: [] Eye contact is good. Motor activity is appropriate. Appearance is casual. Speech is Appropriate. Mood is anxious and depressed. Affect is congruent. Thoughts are linear and logical. No evidence of psychosis. Reviewed daily check in sheet and no reports of suicidal ideations or intent. Client Response/Progress/Benefit: [] Pt participated when prompted. Very brief and superficial check in. Reports mental health win being that she completed tasks yesterday without ?freaking out?. She mentioned experiencing significant stressor and frustration however was able to utilize skills and address the situation. Progress noted. Benefited from group support, encouragement, and feedback. Will continue in PHP to prevent decompensation, decrease anxiety, and improve functioning to return to work. Narrative Note: []
--- NOTE | 2024-06-09 10:35 | BH.NA_ITS ---
Physical Data Vital Signs Pulse Rate: 80 Blood Pressure: 105/73 Height/Weight Height: 1.63 m Weight:: 72.575 kg Weight in Pounds: 160.0 lbs Current Medication Compliance Medication Compliance Do you take your medication as prescribed?: Yes Nutritional History Appetite Nutritional Instructions: Describe your appetite:: Fair Additional nutritional information:: Client reports a somewhat decreased appetite, but denies recent weight change. Functional Assessment Sleep Pattern Describe any problems with sleeping: Client is sleeping up to 14 hours per day. Sensory/Communication Assess Communication Problems Do you have difficulty understanding what people are saying?: No Medical Problems/History Pain Assessment Do you have acute or chronic pain?: No Family History Family History Other Alcohol abuse Anxiety Bowel disease Colon cancer Depression Surgical History Surgical History Have you had any surgeries? If so, list type and date:: No Substance Abuse Substance Abuse Please describe substance abuse in the last 30 days:: Client has been sober from alcohol since 2019. Client vapes nicotine, but was a cigarette smoker for 20 years previously. Client uses marijuana once weekly. Client drinks 1 cup of coffee per day. Mental Status Summary Mental Status Significant Findings/Observations on Appearance and Mood:: Client is alert and oriented x 4. Client is casually groomed with good hygiene. Client is coope rative with assessment. Client makes good eye contact. Client's voice has normal rate and volume. Client has a restricted affect. Client makes logical associations and has normal processing. Client denies delusions/hallucinations. Client denies SI. Suicide Assessment Suicidal Ideation Are you currently or have you been suicidal in the past?: Yes Suicidal Intentional Rating Scale (SIRS): Suicidal thoughts (past) Physician Notification Past Psychiatric History MH Treatment Hx Past Psychiatric Medications:: Celexa, Restoril, Trazodone, Remeron, Prozac, Abilify, Klonopin, Zyprexa (per medication fill history) Age of first mental health symptoms: Client states she was first on medications for mental health as a child, but then started taking medication again in her 30's for anxiety and depression. Describe (age, circumstance, etc) any past hospitalizations: x 2 in the summer at [facility] for anxiety/panic attacks Current providers for mental health treatment (counselor, psychiatrist, casework manager, etc.): Dr. Yuen for psychiatry Fall Risk Assessment Age Age: Less than 60 Mental Status Mental Status: Willing & able to ask for assistance when needed Physical Status Physical Status: No problems Impairments Impairments: None Elimination Elimination: Continent AND independent Gait or Balance Gait or Balance: Walks independently Hx of Falls History of falls in the past 6 months: No known history Medications/Substances Psychotropics:: Antidepressants and Anxiolytics (e.g. benzodiazepines) Others:: Antihypertensives Medications/substances used within the past 24 hours or ordered to administer: 3 or more of the medications/substances listed above Total Score Total Points:: 2 RN Summary of Impressions Impressions Recommendations Impressions: Psychiatric Issues: Panic Disorder, Generalized Anxiety Disorder, Major Depressive Disorder Level of Care How do the client's current symptoms and functional deficits support need for this level of care?: Client was self-referred back to [facility] at this time for depression and anxiety. Client has been in [facility] two times in the past, the last being April 2023. Client has been hospitalized 2 times this summer for anxiety. Client states for the past 2 months, she has been having panic attacks at least every other day and unable to work due to her panic attacks and anxiety. Client states she has been sleeping up to 14 hours per day to escape. Client also endorses feelings of guilt for her taking over with household stuff. Client denies SI. IOP/PHP will promote gains and prevent further decompensation while providing social support and skills training.
[2024-06-09 10:44] VITALS: BP 105/73; PULSE 80
--- NOTE | 2024-06-09 11:15 | BH.SGPN.GN ---
Behaviors/Verbalizations/Mental Status: []Client alert and oriented, casually dressed and groomed. Eye contact good. Motor activity appropriate. Speech within normal limits. Affect congruent, mood anxious. Thoughts linear, logical, no signs of hallucinations or delusions. Client Response/Progress/Benefit: []Pt participated throughout AEB contributing to discussion, providing personal examples, and taking notes. Pt provided input during discussion on the types of support our supports can provide. Pt able to identify current support system and barriers that get in the way of using supports. Pt reported after identifying what type of supports pt receives, pt gained awareness that pt could benefit from more tangible support. Pt recognizes that she struggles with asking for help with daily tasks and doing this more would reduce her anxiety levels. Pt seemed to benefit from identifying the type of support pt needs to work on improving. Pt recommended to continue PHP txt to prevent decompensation, increase daily functioning, and gain healthy coping skills. Narrative Note: []
--- NOTE | 2024-06-09 12:10 | BH.MDN ---
Multi-Disciplinary Note Note 45-min Individual: Time Started:: 12:10 Date: 06/09/24 Purpose of session/treatment goals addressed:: Reviewed progress and current symptoms. Provide psychoeduation on anxiety and panic. Began to develop anxiety management plan. Eye Contact:: Intense Motor Activity:: Appropriate Appearance:: Casual Speech:: Appropriate Mood:: Anxious Affect:: Congruent Thoughts:: Linear, Logical and No evidence of hallucinations/delusions noted Staff Interventions:: psychoeducation on: (anxiety, panic disorders), mindfulness skills (taught 5 senses), rapport building and taught coping skills (taught breathing technique 4-7-8) Client Response:: Pt presents today stated she is feeling les anxious today. Getting familiar and feeling more comfortable with IOP and group counseling. She was able to follow through with anxiety-provoking event yesterday, however struggles to identify how so was able to manage her anxiety. I just pushed through. Further questioning reveals that she reframed thoughts, challenged thoughts, and utilize affirmations all of which was discussed yesterday. Attempted to insight on pt's current coping skills, knowledge of anxiety/panic attacks, and thoughts on how to effectively manage anxiety. Limited insight stating I don't know. Primary coping skills are PRN medication (Ativan), avoidance, and sleep. Open to discussion on the negative impact of avoiding anxiety which does not allow her to learn ways to manage the anxiety. PRN medication also contributes to drowsiness and increased sleep (she reports sleeping 14 hours a day). We discussed [id number] skills such as 4-7-8 breathing, 5 senses, and internal reframing thoughts this is temporary it is not dangerous I've made it through before. Provided education on body's responses to perceived threats and panic attacks. Risks/Concerns:: No risks or concerns noted. Denies SI, plan, or intent. Progress Toward Goals/Plan:: Consistent attendance this week. Medication compliant. Pt will continue to complete thought log. Practiced calming skills today. 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 Appears receptive to exposure goals, fear hierarchy, and CBT techniques to address anxiety. She remains significantly anxious about the idea of returning to work. Was given handout on anxiety managment today and encouraged to practive calm skills rather than avoidance. We discussed the difference between using PRN to escape and avoid and using the PRN for additional support to follow through with anxiety-inducing event. Time Stopped:: 12:50
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
--- NOTE | 2024-06-09 13:08 | BH.DR.ITP ---
Initial Treatment Plan Patient Information Visit Information: ADMISSION DATE: EXPECTED LOS: 4-6 weeks Problems/Symptoms Problem #1:: Anxiety Symptom:: Worry, rumination, panic attacks, difficulty leaving the house, avoidance Problem #2:: Depression Symptom:: Sadness, hopelessness, worthlessness, guilt, hypersomnia, anhedonia, biological disruption of appetite
--- NOTE | 2024-06-11 09:00 | BH.SGPN.GN ---
Behaviors/Dhruv ?Pt alert and oriented, casually dressed and groomed. Eye contact good. Motor activity appropriate. Speech within normal limits. Affect congruent, mood anxious. Thoughts linear, logical, no signs of hallucinations or delusions. Reviewed pt?s symptom tracker, no risk for suicidal ideation, plan, or intent 06/11/24 Client Response/Progress/Benefit: [] Pt was an active participant in group discussions. Attentive. Able to identify mental health wins including doing well to get here today despite high levels of anxiety. Additional win noted as getting ready this morning and taking time to clean her house rather than avoiding by sleeping yesterday. Current stressor noted as fear her anxiety will never improve. Receptive of and Benefited from group support, encouragement, and feedback. Will continue in IOP to prevent decompensation, improve daily functioning, and increase distress tolerance/anxiety management skills. Narrative Note: []
--- NOTE | 2024-06-11 10:13 | BH.SGPN.GN ---
Behaviors/Verbalizations/Mental Status: [] Eye contact is fair to good. Motor activity is appropriate. Appearance is casual. Speech within normal limits. Mood is depressed. Affect is congruent. Thoughts are linear and logical. No evidence of psychosis. Client Response/Progress/Benefit: [] Client was an semi-active participant in group discussion and experiential activity. Attentive during psychoeducation on resilience, but did not offer additional input. Participated in interactive discussion with peers on the definition of resilience and where it comes from. Group identified that resiliency can be impacted by; past experiences, upbringing, and current mental health state. Group also worked together to identify the benefits of being resilient and how it is related to mental health. Able to relate experiential activity of group juggle to topics of resilience. Worked with peers in small group in which they identified factors that contribute to resilience. Benefited from increased awareness of resilience and the factors that contribute to building resilience. Will continue in IOP to increase healthy thought patterns and further promote mood stability. Narrative Note: []
--- NOTE | 2024-06-11 11:13 | BH.SGPN.GN ---
Behaviors/Verbalizations/Mental Status: [] Client alert and oriented, neatly dressed and groomed. Eye contact good. Motor activity appropriate. Speech within normal limits. Affect congruent, mood depressed. Thoughts linear, logical, no signs of hallucinations or delusions Client Response/Progress/Benefit: [] Client responded well to session AEB completing the resilience worksheet provided. Client actively participated in the discussion and worked cooperatively with group to identify strategies to enhance each of the components discussed. Client reports belief they already use resilience trait of ?making connections.? Client discussed that they could work on avoiding seeing crises and an insurmountable problem and nurturing a positive view of themselves. Client seemed to benefit from discussing strategies for improving personal resilience and identifying resilience traits client already possesses. Will continue IOP tx to increase self-worth and distress tolerance skills. Narrative Note: []
--- NOTE | 2024-06-11 15:27 | BH.MDN_ITS ---
Multi-Disciplinary Note Note 45-min Individual: Time Started:: 12:08 Date: 06/11/24 Purpose of session/treatment goals addressed:: To address treatment plan goal #1 obj #1 and goal #2 obj #1. Created a goal for weekend. Eye Contact:: Good and Intense Motor Activity:: Appropriate Appearance:: Neat and Casual Speech:: Appropriate Mood:: Anxious Affect:: Congruent Thoughts:: Linear, Logical and No evidence of hallucinations/delusions noted Staff Interventions:: psychoeducation on: (anxiety safety behaviors and maintenance cycles), CBT techniques, strengths perspective and taught coping skills Client Response:: Pt receptive of session, willing to meet with this therapist as her regular therapist is out of the office today. Pt reports her anxiety has been more significant the past two days and admits that although her kids were sick yesterday, her anxiety also contributed to cancelling scheduled php day. Shared that mornings are when her anxiety is often at it?s peak, resulting in anxious thoughts that her entire day is going to that way. Receptive of and appeared to connect with psychoeducation on the Cortisol Awakening Response (CAR), in which the body experiences it?s highest levels of cortisol in the first hour after waking. Identified that for some this anxiety can help focus and prepare for the day; however, for pt this leads to increased physiological sx and anxious thoughts about everything that needs done and fears her anxiety will prohibit her from doing so. Insight that she then usually goes back to bed to avoid having to face her anxious thoughts and ends up sleeping for a large portion of the day as a result. Reviewed safety behaviors and the role of these behaviors in maintaining cycle of anxiety. Reports that on mornings she wakes up with little anxiety her routine includes making coffee, watching TV, and listening to music while she gets ready. Discussed the benefits of challenging safety behavior urges and continuing with this routine on the days she does have morning anxiety. Goal for weekend to wake by 9am and complete this routine both mornings. Pt connected with the importance of treating both the cognitive and behavioral components contributing to ongoing anxiety. Reviewed the thought log pt completed for homework. Common negative thoughts included ?What if I don?t get better?, ?What if I don?t want to go back to work? I?ll just end up in a job I hate?, and ?We aren?t going to be able to survive financially?. Worked with therapist to identify potential distortions associated with these thoughts and challenge or reframe them. Willing to continue to practice this via thought log over the weekend as well as remind herself ?I can have anxiety and still be able to function?. Risks/Concerns:: No risks or concerns noted. Denies SI, plan, or intent. Progress Toward Goals/Plan:: Some regression. Pt admits to sleeping most of the day when not in attendance yesterday. Discussed feeding into anxious th oughts without attempting to challenge or reframe on her own. Able to identify how this reinforces hopelessness and fear. Did however still challenge herself to clean and complete the assigned homework. Receptive of behavioral goal for reducing safety behavior engagement over the weekend. Recommended continued php treatment to prevent decompensation, improve consistent skill application, and reduce safety behaviors for anxiety. Time Stopped:: 12:50
--- NOTE | 2024-06-14 09:05 | BH.SGPN.GN ---
Behaviors/Verbalizations/Mental Status: [] Eye contact is good. Motor activity is appropriate. Appearance is casual. Speech is Appropriate. Mood is anxious. Affect is constricted. Thoughts are linear and logical. No evidence of psychosis. Reviewed daily check in sheet and no reports of suicidal ideations. Client Response/Progress/Benefit: [] Pt participated when prompted. Attentive. Daily symptom tracker notes 09/22 for anxiety and depression. Reports ? very social weekend? spent with and children. She was able to attend a b-day libertarian, shop at [employer] with , and go to a [employer] house with her kids. She states ?my kids were shocked that I actually went?. Hx of struggling with certain social events. Proud of herself. No significant panic attacks. Progress noted. Benefited from group support, encouragement, and feedback. Will continue in PHP to prevent decompensation/re-admission to psych unit, decrease panic attacks, and improve functioning to return to work. Narrative Note: []
--- NOTE | 2024-06-14 10:15 | BH.SGPN.GN ---
Behaviors/Verbalizations/Mental Status: [] Client alert and oriented, casually dressed and groomed. Eye contact fair. Motor activity appropriate. Speech within normal limits. Affect constricted, mood dysthymic. Thoughts linear, logical, no signs of hallucinations or delusions. Client Response/Progress/Benefit: [] Client was an active participant AEB contributing to discussion, taking notes, and engaging in group activity. Connected with the topic of pitfalls and listened to group discussion on barriers that prevent from choosing a healthier path to mental wellness. Group worked together to identify examples of personal pitfalls. Pt identified personal pitfalls to include: isolation, self-judgement, avoidance, not giving self credit, and lack of communication. Client benefited from group as client learned to better identify potential barriers to improving mental health symptoms. Client will continue PHP tx to improve daily functioning, improve healthy coping, and prevent decompensation.
--- NOTE | 2024-06-14 11:15 | BH.SGPN.GN ---
Behaviors/Verbalizations/Mental Status: []Client alert and oriented, casually dressed and groomed. Eye contact good. Motor activity appropriate. Speech within normal limits. Affect congruent, mood anxious. Thoughts linear, logical, no signs of hallucinations or delusions. Client Response/Progress/Benefit: [] Pt receptive of session, engaged throughout AEB Pt actively listening and contributing to discussion as well as taking notes.? Pt participated in the experiential activity and did well to communicate ideas with peers and manage emotions. Pt attentive as group processed how the emotions and perspective of the group impacted the activity. Group worked together to identify different coping skills to help manage pitfalls. Pt identified pitfall they struggle with as self-judgement. Pt plans to work on their pitfall by practicing self-compassion and being present with supports. Benefited from identifying personal pitfalls and strategies to overcome these pitfalls. Pt will continue PHP tx to prevent decompensation, improve daily functioning, and increase application of healthy coping skills. Narrative Note: []
--- NOTE | 2024-06-14 12:10 | BH.MDN ---
Multi-Disciplinary Note Note 45-min Individual: Time Started:: 12:10 Date: 06/14/24 Purpose of session/treatment goals addressed:: Review current symptoms and progress in [facility]. Addressed treatment goals 1 and 2. Eye Contact:: Intense Motor Activity:: Appropriate Appearance:: Casual Speech:: Appropriate Mood:: Anxious Affect:: Congruent Thoughts:: Linear, Logical and No evidence of hallucinations/delusions noted Staff Interventions:: CBT techniques (cognitive distortions, thought log, reframing. ), rapport building and taught coping skills Client Response:: Tearful at times during the session when discussing belief that she will never be able to work again due to her anxiety. She followed through with her thought log as well as behavioral activation in the AM this . Friday and Friday she was able to utilzie skills in the AM to get out of bed and remain active throughout the day. Had urges to isolate and return to comfort zone on Friday evening however was able to follow through with family plans. She was able to manage her anxiety over the weekend fairly well however when asked her skills, thoughts, or times when she struggled she was unable to recall stating I don't remember. Poor memory which makes processing success and obstacles difficult. Receptive to education on cognitive distortions. Worked with pt on examples of reframing or challenging negative thoughts. Risks/Concerns:: No risks or concerns noted. Denies SI, plan, or intent. Progress Toward Goals/Plan:: Progress noted. Self-report of decreased anxiety and hopelessness with increased functioning. Consistent and engaged in treatment, however did call off one [facility] day due to anxiety. Medication compliant. Pt continues to be unable to work. Tearful and anxious if the topic is even discussed. Significant avoidant behaviors due to anxiety. Primary coping skills are sleep and PRN medications, however she has slowly been practicing healthy skills with success. Even though she remains unable to work and functioning at baseline due to anxiety and panic progress has been noted. We discussed stepping down to IOP this week and she is agreeable. Given task to complete thought log with identify distortions and defaming independently. Time Stopped:: 12:50
--- NOTE | 2024-06-15 09:00 | BH.SGPN.GN ---
Behaviors/Verbalizations/Mental Status: [] Pt alert and oriented, neatly dressed and groomed. Eye contact good. Motor activity appropriate. Speech within normal limits. Affect congruent-tearful, mood anxious. Thoughts linear, logical, no signs of hallucinations or delusions. Reviewed pt?s symptom tracker, no risk for suicidal ideation, plan, or intent 06/15/24 Client Response/Progress/Benefit: [Pt was an active participant in group discussions. Attentive. Able to identify mental health wins including getting to IOP today when she wanted to cancel and cleaning a lot of her house yesterday. Pt stated she is feeling emotional this morning because she feels guilt. Pt reports feeling guilty that she is currently not working and her family has financial stress. Pt receptive to feedback from peers which pt reported was helpful. Progress noted. Benefited from group support, encouragement, and feedback. Will continue in PHP to prevent decompensation, combat distorted thinking, and increase distress tolerance skills. Narrative Note: []
--- NOTE | 2024-06-15 10:15 | BH.SGPN.GN ---
Behaviors/Verbalizations/Mental Status: [] Eye contact is good. Motor activity is appropriate. Appearance is casual. Speech is Appropriate. Mood is anxious and dysthymic. Affect is congruent. Thoughts are linear and logical. No evidence of psychosis. Client Response/Progress/Benefit: [] Pt was an active participant in group discussions. Attentive during psychoeducation on the 4 communication styles (Passive, Passive-Aggressive, Aggressive, and Assertive) and the obstacles to effective communication. ?Self-identified a barrier they personally struggle with as shutting down or not being able to find the right words resulting in being too vague, ultimately preventing them from communicating when they need to or want to. Contributed some but still remaining primarily passive during interactive discussion on the benefits of communicating effectively which included; having one's needs met, decreases stress and uncertainty, improved relationships, healthier boundaries, and avoids unnecessary conflict. Worked well with peers to identify the benefits and disadvantages to the different communication styles. Benefited from increased understanding of communication styles and how these can impact effective communication. Will d/c from PHP and continue in IOP to prevent decompensation, improve mood stability and continue to promote application of healthy coping skills to reduce avoidance. Narrative Note: []
--- NOTE | 2024-06-15 11:10 | BH.SGPN.GN ---
Behaviors/Verbalizations/Mental Status: []Pt alert and oriented, casually dressed. Eye contact fair. Motor activity appropriate. Speech within normal limits. Affect constricted, mood dysthymic. Thoughts linear, logical, no signs of hallucinations or delusions. Client Response/Progress/Benefit: [] Pt responded well to session AEB Pt listening attentively to others and providing input during group discussion on the pay offs and costs of the different communication styles. Pt able to connect how current communication style impacts mental health. Connected with peers? comments about importance of using assertive communication. Pt did well with practicing being assertive in the group activity and worked with group to identify potential skills for improving communication skills. Pt stated she wants to work on being more assertive because being passive doesn't help situations get resolved. Pt seemed to benefit from increasing awareness of healthy strategies to improve communication. Will continue PHP tx to improve daily functioning, improve healthy coping, and prevent decompensation.
--- NOTE | 2024-06-15 12:10 | BH.MDN ---
Multi-Disciplinary Note Note 45-min Individual: Time Started:: 12:10 Date: 06/15/24 Purpose of session/treatment goals addressed:: Utilized the session to review current progress and symptoms. Reviewed thought log and coping skills. Eye Contact:: Intense Motor Activity:: Appropriate Appearance:: Casual Speech:: Appropriate Mood:: Anxious and Depressed Affect:: Congruent Thoughts:: Linear, Logical and No evidence of hallucinations/delusions noted Staff Interventions:: thought challenging, CBT techniques and taught coping skills Client Response:: Tearful at times during the session. I'm very emotional today. She reports negative thoughts throughout the morning such as I don't think I will ever be able to do my job again I need to get better. She was following though with morning goals as she made coffee and did not lay in bed. 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 Tearful believing that she will not get better and is questioning if she even wants to return to her job. Processed her perceptions of her job and its unclear if her job stressors causes anxiety making her job difficult or if her anxiety is causing her job to be difficult. We reviewed thought log and practiced reframing and challenging thoughts. Risks/Concerns:: No risks or concerns noted. Denies SI, plan, or intent Progress Toward Goals/Plan:: Progress noted. She has been following thought with behavioral activation goals and thought log. Increased awareness of cognitive distortions and was able to identify 3 commonly used distortions. Receptive of thought-reframing and challenging skills. Pt often mind reads, catastrophizes, discounts positives, and labels which causes her negative thoughts to escalate. Anxiety and depression have improved since starting PHP. Reviewed treatment plan and she has accomplished goals. Plan to step down to IOP level of care as she no longer meets criteria for PHP level of care. Her anxiety continues to impact functioning and while she has had sporadic stability her anxiety continues to impact her functioning. Tearful when returning to work is even discussed and limited confidence to regulate emotions if triggers AEB by this AM. Will continue in IOP to prevent decompensation, increase healthy coping, and improve functioning. Time Stopped:: 12:50
--- NOTE | 2024-06-15 13:00 | BH.DS ---
Discharge Summary Demographics Date of Admission:: 06/07/24 Discharge Date: 06/15/24 Presenting Problems at Admission:: Pt is a 38 year old female. Hx of Generalized Anxiety Disorder, Panic Disorder, Major Depressive Disorder, and Alcohol Use Disorder (full remission for 4 years). Pt reports two psychiatric admissions in the summer of 2023 for anxiety and panic attacks impacting her ability to function. Self-referred to [facility] due to worsening anxiety/panic which has resulted in her inability to work. Pt is currently on leave from her full-time job. Exacerbation of symptoms in the past 4 months w/o a specific triggers. Pt has been unable to work and complete daily tasks. She reports sleeping over 10 hours a day to cope and escape negative thoughts. Daily panic attacks. Pt very rarely leaves the house except to attend her children's sporting events. Fearful of having a panic attacks while in public. While at home she isolates in her room and sleeps throughout the day. According to patient she wakes up with intense anxiety and overwhelming negative thoughts which makes leaving her bed difficult. Endorses guilt, racing thoughts, hopelessness, poor concentration, worthlessness, low energy, low motivation, and believes herself to be a burden on her family due to her mental health. Denies suicidal ideations, plan, or intent. No history of attempts. Denies HI or psychosis. Denies current substance use (4 years sober). Currently linked with psychiatrist and is medication compliant, however limited benefit. She discontinued counseling several months ago believing that it was not effective. Discharge Diagnoses:: 1. Generalized anxiety disorder 2. Panic disorder 3. Major depressive disorder, recurrent, severe without psychosis 4. Alcohol use disorder in remission for 4 years Reason for Discharge:: Completed treatment plan goals. No longer meets criteria for [facility] level of care. Treatment Progress During Treatment & Response: Progress noted. Consistent attendance in [facility], only missing one day due to her daughter's illness. Limited engagement in groups however appears attentive AEB note-taking. She has been following though with behavioral activation goals and thought log. Increased awareness of cognitive distortions and was able to identify 3 commonly used distortions. Receptive of thought-reframing and challenging skills. Pt often mind reads, catastrophizes, discounts positives, and labels which causes her negative thoughts to escalate. Anxiety and depression have improved since starting [facility]. Reviewed treatment plan and she has accomplished goals. Plan to step down to [facility] level of care as she no longer meets criteria for [facility] level of care. Her anxiety continues to impact functioning and while she has had sporadic stability her anxiety continues to impact her functioning. Tearful when returning to work is even discussed and limited confidence to regulate emotions if triggers AEB by this AM. Will continue in IOP to prevent decompensation, increase healthy coping, and improve functioning. Issues Still to be Addressed:: Anxiety, panic attacks, and depression. According to pt she is not ready to return to work. Tearful and anxious when work is discussed. Remains hopeless that she can ever do the job again. Emotion dysregulation this AM due to trigger which led to thoughts about work. Sporadic stability noted over the past week with 2 days of minimal anxiety and improved functioning. Discharge Recommendations/Instructions:: Recommendation to step-down to IOP level of care to prevent decompensation, stabilize mood, increase healthy coping, and improve functioning to return to work. She is still early in developing consistent skills to manage anxiety, panic, and depression. Discharge Handout
== END 2024-06-16 06:23 | disposition home or self-care (01) ==
LOC: BHPHP 08:00
PROVIDERS: PCP Family Medicine; Referring Provider Psychiatry & Neurology Psychiatry; Visit Provider Psychiatry & Neurology Psychiatry
DX: F41.1 Generalized anxiety disorder (principal); F41.0 Panic disorder [episodic paroxysmal anxiety]; F33.2 Major depressive disorder, recurrent severe without psychotic features; F10.91 Alcohol use, unspecified, in remission; Z79.899 Other long term (current) drug therapy
CPT/HCPCS: H0035; 90834; 90837; G0410

== ENCOUNTER 2024-06-18 08:00 | Outpatient (RCR) | payer OTHER, SELFPAY ==
--- NOTE | 2024-06-18 09:05 | BH.SGPN.GN ---
Behaviors/Verbalizations/Mental Status: [] Eye contact is good. Motor activity is appropriate. Appearance is casual. Speech is Appropriate. Mood is anxious. Affect is congruent. Thoughts are linear and logical. No evidence of psychosis. Reviewed daily check in sheet and no reports of suicidal ideations or intent. Client Response/Progress/Benefit: [] Pt participated when prompted. Attentive. She reported no panic attacks or overwhelmed anxiety yesterday. Completed behavioral activation and remained engaged in stess-inducing events throughout the day. Struggles to identify what skills she utilized to manage anxiety and negative thoughts. I don't know I just did. Utilizing skills at some level however relies heavily on distraction and support. In recent weeks her anxiety has improved however relies on and children's presence and support. When alone (waking up in the AM, grocery shopping alone, being alone in the house, or at work) she reports that the panic will return. Benefited from group support, encouragement, and feedback. Will continue in IOP to prevent decompensation, stabilize mood, and improve functioning to return to work. Narrative Note: []
--- NOTE | 2024-06-18 10:16 | BH.SGPN.GN ---
Behaviors/Verbalizations/Mental Status: [] Eye contact is good. Motor activity is appropriate. Appearance is casual. Speech is Appropriate. Mood is anxious. Affect is constricted. Thoughts are linear and logical. No evidence of psychosis. Client Response/Progress/Benefit: [] Pt attentive during group discussion, though did not provide input. Taking notes throughout. Attentive and listening in group activity and attentive during psychoeducation. Along with peers, pt was able to identify barriers to taking action in their life. Identified several symptoms and stressors that pt feels are holding them back from progress such as anxiety, isolation. Stated these things have kept pt from finding a healthy work/life balance. Benefited from increased self-awareness of obstacles. Will continue IOP tx to prevent decompensation, further stabilize mood , and increase consistency of healthy coping. Narrative Note: []
--- NOTE | 2024-06-18 11:40 | BH.MDN ---
Multi-Disciplinary Note Note 30-min Individual: Time Started:: 11:40 Date: 06/18/24 Purpose of session/treatment goals addressed:: Reviewed current progress and symptoms. Began to develop goals for IOP level of care. Eye Contact:: Good Motor Activity:: Appropriate Appearance:: Neat Speech:: Appropriate Mood:: Anxious Affect:: Congruent Thoughts:: Linear, Logical and No evidence of hallucinations/delusions noted Staff Interventions:: thought challenging, CBT techniques, rapport building, treatment planning and other (education on exposure goals. ) Client Response:: Pt's reports progress in the past few days. No panic attacks or overwhelming anxiety in the past few days as well. Maintaining thought log and reports increased awareness of cognitive distortions/negative thoughts. Increased awareness does help with reframing challenging however still relies on to provide reassurance and help her reframe thoughts. Pt struggles the most when alone, bored, and when uncertain. Continues to tear up when the topic of work is brought up. Came up with plan to work on exposure goals. Pt reports going places alone are anxiety triggers. She reports that grocery shopping at [employer] or [employer] are also anxiety producing stating No way I could do it myself. Identified obstacles as other people, overwhelming stimuli, fear of being judged, etc. Gave pt task to develop a anxiety management plan over the weekend with hopes to go to local smaller shop by herself next week and chart picker a few items. Risks/Concerns:: no risks or concerns noted. Progress Toward Goals/Plan:: Progress noted. Has had 3 days w/o panic or overwhelming anxiety. Medication compliant. Consistent attendance this week. More engaged in groups. Following through with thought log in which she identifies thoughts, cog. distortions, and attempts to reframe the thoughts. Plan to create a fear ladder to go grocery shopping alone. Pt was given task to develop her own anxiety management plan (calming skills, breathing, mindfulness, affirmations, distractions, etc.) to use during exposure goals. If she can increase confidence in managing anxiety during these exposure goals then the plan is to slowly transition back to work. Time Stopped:: 12:20
--- NOTE | 2024-06-18 12:20 | BH.MTP_ITS ---
Master Treatment Plan Patient Information Program Physician:: Rosa M Thacker Primary Therapist:: Fransico Hoover Psychiatric Diagnoses Psychiatric Diagnoses:: 1. Generalized anxiety disorder 2. Panic disorder 3. Major depressive disorder, recurrent, severe without psychosis 4. Alcohol use disorder in remission for 4 years Diagnosis Code(s):: f41.1 Estimated LOS Estimated LOS (in weeks):: 6 Problem/Goal #1 Problem/Goal #1 Stated Goal:: Increase sense of confidence and competence as well as decrease anxiety in dealing with anxiety/panic invoking situations (i.e. Work responsibilities, grocery shopping alone) AEB self-report and decrease on anxiety domain scores Description of Barriers: Hx of non-compliance with treatment, significant and consistent struggles with maintaining work responsibilities over the past 2 years Functional Impact: Has not been able to function at work due to anxiety. Currently on FMLA from work. Struggles to get out of bed in the AM due to anxiety. Avoiding responsibilities at home. Increased sleep (14 hours a day) to escape or cope with anxiety/depression. Goal Relevant Strengths/Supports: Family is her greatest support and motivator Objectives Objective #1: Stated Objective: Francisco complete a Fear Ladder for 3 avoided situations and undergo gradual repeated exposure to feared or avoided situations. Interventions: Direct and assist the client in construction of a hierarchy of anxiety-producing situations associated with agoraphobia in which a symptom attack and its negative consequences are feared. Select initial exposures that have a high likelihood of being a successful experience for the client; develop a plan for managing the symptoms when experiences to anxiety-provoking situations. Discharge Criteria: Completed fear ladder and successfully work through 3 avoided situations. Target Date: 07/30/24 Review Date: 07/07/24 Objective #2: Stated Objective: Pt will develop an anxiety management plan which include in the moment calming skills, physiological warning signs, anxiety-producing thoughts which exacerbate the anxiety, internal coping strategies (reframing, challenging, acceptance, etc.), external coping skills (support, distraction, etc.), and helpful affirmations. Interventions: Through individual and group counseling will provide psychoeducation on calming, internal, and external coping skills. Will assist client in exploring what triggers anxiety and teach client coping strategies to effectively manage anxiety symptoms. Discharge Criteria: Develop anxiety management plan for high anxiety situations (i.e. work). Target Date: 07/30/24 Review Date: 07/07/24 Problem/Goal #2 Problem/Goal #2 Stated Goal:: Recognize, accept, and cope with feelings of depression AEB self- report and reduction on scores on the depression domain of the DSM-5 crosscutting scales. Description of Barriers: Hx of non-compliance with treatment. Inability to work has led to feeling of worthlessness, depression, and being a burden on her family. Functional Impact: Currently on FMLA from work due to mental health. Two psychiatric admissions in the past year. Crying spells, poor self-esteem, and lack of confidence. Goal Relevant Strengths/Supports: Family is her biggest support and motivator. Objectives Objective #1: Stated Objective: Pt will maintain an thought log which identifies events, thoughts, emotions, cognitive distortions, and examples of reframing/challenging throughout IOP. Outcome measure will show a reduction on the depression domain. Interventions: Through individual and group counseling will assist client in recognizing triggers for increased self-deprecating and depressive thought patterns. Therapist will help client explore connection between thoughts, feelings, and actions and help client reframe depressive thought patterns. Discharge Criteria: Maintain thought-log throughout IOP thereby practicing daily though-reframing and cognitive distortion awareness. Target Date: 07/30/24 Review Date: 07/07/24
--- NOTE | 2024-06-21 09:00 | BH.SGPN.GN ---
Behaviors/Verbalizations/Mental Status: [] Eye contact is good. Motor activity is appropriate. Appearance is casual. Speech is Appropriate. Mood is anxious. Affect is constricted. Thoughts are linear and logical. No evidence of psychosis. Reviewed daily check in sheet and no reports of suicidal ideations or intent. Client Response/Progress/Benefit: [] Pt participated when prompted. Attentive. Daily symptom tracker notes 2/5 for depression and anxiety. Very brief and superficial check in. Able to identify mental health wins over the weekend as she attended several social events. Stressors was that she learned last week about changes at her job that will effect her. Ruminating on the impact these changes will have on her schedule and mental health. Progress noted with a decrease in panic attacks. Benefited from group support, encouragement, and feedback. Will continue in IOP to prevent decompensation, stablzie anxiety, and improve functioning to return to work. Narrative Note: []
--- NOTE | 2024-06-21 10:15 | BH.SGPN.GN ---
Behaviors/Verbalizations/Mental Status: []Client alert and oriented, casually dressed and groomed. Eye contact fair. Motor activity appropriate. Speech within normal limits. Affect constricted, mood anxious. Thoughts linear, logical, no signs of hallucinations or delusions. Client Response/Progress/Benefit: [] Pt was an attentive AEB taking notes and listening to input in group discussion when prompted. Attentive during psychoeducation. Pt engaged during interactive discussion in which the group defined self-care and discussed its benefits. Group discussed barriers to engaging in self-care. Group members together came up with guilt, time, ?people pleasing?, not knowing what to do, and perception that its unproductive as barriers to engage in self-care. Pt participated in small groups where they worked to identify and challenged common self-care ?myths?. Benefited from increased awareness of self-care, its benefits, and the consequences of not utilizing self-care strategies. Will continue IOP tx to decrease anxious avoidance, increase consistent use of healthy coping skills, and prevent decompensation.
--- NOTE | 2024-06-21 11:15 | BH.SGPN.GN ---
Behaviors/Verbalizations/Mental Status: [] Client alert and oriented, casually dressed and groomed. Eye contact good. Motor activity appropriate. Speech within normal limits. Affect congruent, mood anxious. Thoughts linear, logical, no signs of hallucinations or delusions. Client Response/Progress/Benefit: []Client engaged in discussion reviewing different areas of self-care and completing self-assessment of current self care, as well as providing input throughout discussion. Did well to complete self-care self-assessment worksheet. Client identified current self-care practices and what self-care activities client wants to start using. Client selected emotional and psychological self-care to begin practicing more consistently. Client plans to do this by challenging themselves to make a consistent effort to practice daily gratitude, as well as challenge herself to learn something new. Appeared to benefit from completing the self-care evaluation and gaining insights into current self-care practices, as well as identifying areas in which client would like to improve upon. Client will continue IOP tx to prevent decompensation, improve mood stability, and increase ability to work on small exposure goals. Narrative Note: []
--- NOTE | 2024-06-22 09:15 | BH.MDN_ITS ---
Multi-Disciplinary Note Note 45-min Individual: Time Started:: 09:15 Date: 06/22/24 Purpose of session/treatment goals addressed:: Reviewed current progress and symptoms. Utilzed the sessions to develop fear ladder as well as anxiety management plan. Eye Contact:: Good Motor Activity:: Appropriate Appearance:: Casual Speech:: Appropriate Mood:: Anxious and Depressed Affect:: Congruent Thoughts:: Linear, Logical and No evidence of hallucinations/delusions noted Staff Interventions:: thought challenging, CBT techniques, mindfulness skills, taught coping skills and other (completed fear ladder) Client Response:: Tearful at times. Reports bad day yesterday. 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 I can't go back. 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 She continues to be uncertain if she wants to return to his career, however according to pt her is pressuring her to return b/c it's the best option financially and for the family's schedule. Pt states I have to work and believes her only other options are a factory or [employer]. Briefly discussed strategies to help her make a decision as well as research other careers, however she reports that at this point she is planning to return. Remainder of the session focused on making a fear ladder to induce anxiety in gradual steps to increased on confidence in her anxiety skills. We also reviewed and developed a initial anxiety plan for her to use during her exposure goals. Risks/Concerns:: No risks or concerns noted. Progress Toward Goals/Plan:: Consistent with [facility] level of care. Overall pt's number of panic attacks have decreased. More good days than bad. Engaged in family tasks, events, and responsibilities outside of work. Continues to have anxiety in the AM however has not utilized sleep as primary coping and is moving throughout the day. Work remains the primary stressor. 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 She struggles with utilizing skills independently. As we reviewed anxiety events yesterday she did not utilize any skills and allowed her anxiety to escalate till panic. Therapist and pt wrote down skills today so she could have them present. Was given task to develop her own set of strategies last session however did not follow through. Plan is to complete fear ladder for grocery shopping, then complete one for [employer], and then develop one for her return to work. Time Stopped:: 10:00
--- NOTE | 2024-06-22 10:15 | BH.SGPN.GN ---
Behaviors/Verbalizations/Mental Status: [] Eye contact is fair. Motor activity is appropriate. Appearance is casual. Speech is Appropriate. Mood is anxious. Affect is constricted. Thoughts are linear and logical. No evidence of psychosis. Client Response/Progress/Benefit: [] Pt was an active participant during interactive group discussions. Along with peers contributed to interactive discussion on defining what a boundary is in mental health. Pt along with peers identified challenges to setting boundaries which included; people pleasing, fear of rejection, fear of loss, fear people won't respect the boundary, etc. Pt along with peers identified the benefits to setting boundaries such as reduces assumptions, can reduce stress, improve communication/relationships, and can keep us safe. Attentive during psychoeducation on types of boundaries (rigid, porous, flexible). Pt benefited from increased awareness and insight on the importance/benefit to setting health boundaries. Will continue in IOP to decrease anxious avoidance, increase consistent use of healthy coping skills, and prevent decompensation.
--- NOTE | 2024-06-22 11:20 | BH.SGPN.GN ---
Behaviors/Verbalizations/Mental Status: []Eye contact is good. Motor activity is appropriate. Appearance is casual. Speech is Appropriate. Mood is depressed and anxious. Affect is congruent. Thoughts are linear and logical. No evidence of psychosis. Client Response/Progress/Benefit: []Pt responded well to session AEB listening attentively to peers and taking notes throughout. Reports connecting with rigid boundaries, especially when it comes to asking for help. Participated in group discussion brainstorming various strategies for improving healthy boundary setting. Pt reports wanting to improve her comfort levels with saying no when not wanting to make a commitment. Seemed to benefit from increased awareness of how different boundary styles can impact mental health. Will continue IOP tx to prevent decompensation, improve daily functioning, and increase mood stability. Narrative Note: []
--- NOTE | 2024-06-23 09:00 | BH.SGPN.GN ---
Behaviors/Verbalizations/Mental Status: [] Eye contact is good. Motor activity is appropriate. Appearance is casual. Speech is Appropriate. Mood is anxious. Affect is constricted. Thoughts are linear and logical. No evidence of psychosis. Reviewed daily check in sheet and no reports of suicidal ideations or intent. Client Response/Progress/Benefit: [] Pt participated at times during the group discussions. Attentive. Able to identify mental health wins stating that she has been consistently completing anxiety/stress producing tasks. She also started guided meditation to help with her anxiety at night which she found helpful. Brief check-in which is baseline for patient. She mentioned additional work stressors and ruminations which had impacted her anxiety and caused depression/hopelessness that she will be able to return. Progress noted as she is utilizing skills and managing anxiety in social situations however even thinking about work continues to cause most distress. Benefited from group support, encouragement, and feedback. Will continue in IOP to prevent decompensation, stabilize mood, and improve functioing to return to work. Narrative Note: []
--- NOTE | 2024-06-23 10:15 | BH.SGPN.GN ---
Behaviors/Verbalizations/Mental Status: [] Eye contact is good. Motor activity is appropriate. Appearance is casual. Speech is Appropriate. Mood is anxious and content. Affect is congruent. Thoughts are linear and logical. No evidence of psychosis. Client Response/Progress/Benefit: [] Pt receptive to session AEB listening attentively to others and taking notes. Pt attentive and contributing throughout psychoeducation on the cognitive triangle and maintenance cycles. Pt engaged during group discussion reviewing the impact of daily activities and behaviors in either reinforcing unhealthy maintenance cycles and depression or assisting in reducing symptoms (?down? vs ?up? activities). Pt identified personal ?down? activities they engage in as: avoiding tasks, shutting down, and isolating. Attentive during discussion on Common ?Up? activities Pt identified theirs to include: self-care, taking cleaning, and time with her kids. Appeared to benefit from increased awareness of current behaviors and impact these have on mental health. Will continue IOP to improve mood stability, prevent decompensation, and reduce negative thinking patterns. ?? Narrative Note: []
--- NOTE | 2024-06-23 11:15 | BH.SGPN.GN ---
Behaviors/Verbalizations/Mental Status: []Eye contact is fair. Motor activity is appropriate. Appearance is casual. Speech is Appropriate. Mood is dysthymic. Affect is constricted. Thoughts are linear and logical. No evidence of psychosis. Client Response/Progress/Benefit: [] Pt responded well to session, attentive and engaged in group discussions and activity. Actively engaged in continued discussion about up activities and down activities. Active participant as group discussed values and the benefits that knowing one's values can have on one's mental health. Pt completed personal cognitive triangle negative loop. Pt set a goal to use opposite action when wanting to isolate to instead go to a room with others or reach out to a support person. Benefited from increased awareness of their personal values and how incorporating their values into behavioral activation goals can positive impact mental health. Will continue in IOP to decrease anxious avoidance, increase consistent use of healthy coping skills, and prevent decompensation.
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
--- NOTE | 2024-06-28 09:00 | BH.SGPN.GN ---
Behaviors/Verbalizations/Mental Status: [] Eye contact is good. Motor activity is appropriate. Appearance is casual. Speech is Appropriate. Mood is euthymic. Affect is full. Thoughts are linear and logical. No evidence of psychosis. Reviewed daily check in sheet and no reports of suicidal ideations or intent. Client Response/Progress/Benefit: [] Pt participated at times during the group discussion. Attentive. Daily symptom tracker notes 09/22 for anxiety. I was my old self this weekend I was happy, talkative, and loud. Spent the weekend out of town with her family. No panic attacks and limited anxiety. Increased confidence this weekend with minimal anxiety and increase social engagement. She continues to struggles at times in the AM and ruminate about work, however anxiety is stabilizing in areas outside of work. Progress noted. Benefited from group support, encouragement, and feedback. Will continue in IOP to prevent decompensation, stabilize mood, and improve functioning. Narrative Note: []
--- NOTE | 2024-06-28 10:15 | BH.SGPN.GN ---
Behaviors/Verbalizations/Mental Status: []Client alert and oriented, casually dressed and groomed. Eye contact good. Motor activity appropriate. Speech within normal limits. Affect congruent, mood anxious. Thoughts linear, logical, no signs of hallucinations or delusions. Client Response/Progress/Benefit: [] Pt responded well to session AEB actively participating throughout group. Pt was attentive throughout group activity discussing famous individuals and how they overcame failure to be successful. Pt helped group identify how fear of failure can impact mental health and relationships. Pt personally identified it leads to pt to shutting down and isolating. Participated in experiential activity, working with group members to problem solve. Appeared to benefit from increased knowledge of what causes fear of failure and how it impacts people. Will continue IOP tx to prevent decompensation and further improve mood stability. Narrative Note: []
--- NOTE | 2024-06-28 11:15 | BH.SGPN.GN ---
Behaviors/Verbalizations/Mental Status: []Pt alert and oriented, neatly dressed and groomed. Eye contact good. Motor activity appropriate. Speech within normal limits. Affect congruent, mood anxious. Thoughts linear, logical, no signs of hallucinations or delusions. Client Response/Progress/Benefit: [] Pt responded well to session, engaged in the experiential activity and attentive throughout group processing. Pt reported fear of failure has kept Pt from being authentic, relationships, and jobs. Pt completed fear of failure worksheet and was able to identify thoughts and behaviors that reinforce personal fear of failure including isolation, avoidance, self-sabotage, and all or nothing thinking. Pt participated in small group discussion regarding strategies to overcome fear of failure. Identified wanting to work on self-compassion and finding the [place]. Appeared to benefit from increased knowledge of strategies to combat fear of failure and gaining self-awareness. Pt will continue IOP tx to prevent decompensation, increase distress tolerance skills, and improve daily functioning. Narrative Note: []
--- NOTE | 2024-06-30 09:05 | BH.MDN ---
Multi-Disciplinary Note Note 60-min Individual: Time Started:: 09:05 Date: 06/30/24 Purpose of session/treatment goals addressed:: Utilized the session to review current symptoms and progress in IOP. Finalized anxiety management plan and set up exposure goals for this week. Eye Contact:: Good Motor Activity:: Appropriate Appearance:: Neat Speech:: Appropriate Mood:: Anxious and Depressed (tearful at times) Affect:: Congruent Thoughts:: Linear, Logical and No evidence of hallucinations/delusions noted Staff Interventions:: thought challenging, CBT techniques, mindfulness skills, goal setting (exposure goals) and taught coping skills Client Response:: Pt tearful stating I cried all day yesterday. Processed the events of yesterday. Pt had limited tasks or goals yesterday and was alone in the AM. Limited tasks and feeling lonely triggered depression and she choose an unhealthy coping skills (sleeping) to decrease distress which helped short-term but overall caused more distress. Pointed out how she is reinforcing anxiety cycle by avoidance and we worked together to finalize her anxiety management plan with coping skills, affirmations, and distractions to help manage anxiety rather than avoid anxiety-producing events. She has not started on her exposure goals. Had an opportunity yesterday to go into [employer] however choose curbside pickup to again avoid anxiety. 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 Risks/Concerns:: No risks or concerns noted. Progress Toward Goals/Plan:: Pt has shown progress in anxiety management in certain areas of her life. More engaged with family and has not missed family events. Primarily struggling with anxiety when she is alone. Limited progress on exposure goals as she continues to avoid anxiety-producing events. Reviewed the anxiety cycle and importance of exposure to anxiety situations to increased confidence in skills. Despite her struggles she scheduled a client for work on Friday w/o discussing with therapist. I'm not sure I'm ready. We completed her personalized anxiety management plan with calming skills, personalized thought-reframes geared towards her negative thoughts, distraction strategies, etc. Plan to follow through with exposure goals today and . Will meet with her on Friday and discuss her confidence in going back to work on Friday. Time Stopped:: 10:00
--- NOTE | 2024-06-30 10:15 | BH.SGPN.GN ---
Behaviors/Verbalizations/Mental Status: []Eye contact is good. Motor activity is appropriate. Appearance is neat. Speech is Appropriate. Mood is anxious. Affect is congruent. Thoughts are linear and logical. No evidence of psychosis. Client Response/Progress/Benefit: [] Pt was engaged and participating throughout, providing input and taking notes. Participated in an interactive discussion on defining anxiety and identifying cognitive and physiological symptoms of anxiety. The group discussed the role of anxiety on isolation, avoidance, and who this emotion impacts their ability to start and complete activities/goals. Pt identified their physical/physiological signs of anxiety (i.e. nausea, sweating, and stomach pain). Pt identified safety behaviors (i,e sleeping and avoiding anything that triggers anxiety.) Benefited from increased awareness and insight on anxiety and its impact. Will continue in IOP to prevent decompensation, improve mood stability, and reduce avoidance. Narrative Note: []
--- NOTE | 2024-06-30 11:10 | BH.SGPN.GN ---
Behaviors/Verbalizations/Mental Status: [] Pt alert and oriented, casually dressed and groomed. Eye contact fair. Motor activity appropriate. Speech within normal limits. Affect constricted, mood anxious. Thoughts linear, logical, no signs of hallucinations or delusions. Client Response/Progress/Benefit: [] Pt was an active participant AEB pt providing input and listening attentively to peers. Attentive during psychoeducation on mindfulness coping skills and their impact on reducing anxiety and improving overall mental health wellness. Group was able to identify self-soothing and mind-based coping skills which included: 5-senses, meditation, deep breathing, TIPP, thought challenging, and progressive muscle relaxation. Pt also participated with peers in practicing mindfulness skills in session including deep breathing. Pt would like to work on using guided meditation and yoga to manage anxiety. Appeared to benefit from increasing repertoire of anxiety reduction skills. Pt will continue in IOP tx to improve consistent use of healthy coping skills, decrease avoidance of anxious situations, and prevent decompensation.
--- NOTE | 2024-06-30 14:00 | BH.MTP_ITS ---
Treatment Plan Review Demographics Date of Admission:: 06/18/24 Date of Treatment Plan Review:: 06/30/24 Admitting Diagnoses:: 1. Generalized anxiety disorder 2. Panic disorder 3. Major depressive disorder, recurrent, severe without psychosis 4. Alcohol use disorder in remission for 4 years Current Diagnoses:: 1. Generalized anxiety disorder 2. Panic disorder 3. Major depressive disorder, recurrent, severe without psychosis 4. Alcohol use disorder in remission for 4 years Patient Status Patient's Response to Treatment:: Consistent in IOP. Pt has shown progress in anxiety management in certain areas of her life. More engaged with family and has not missed family events. Primarily struggling with anxiety when she is alone. Limited progress on exposure goals as she continues to avoid anxiety- producing events. Despite her struggles she scheduled a client for work on Friday w/o discussing with therapist. I'm not sure I'm ready. Completed her personalized anxiety management plan with calming skills, personalized thought- reframes geared towards her negative thoughts, distraction strategies, etc. Plan to follow through with exposure goals today and . Status of Current Problems and Symptoms: According to outcome scores pt has shown a 17% decrease in overall symptoms since admission. Pt had a 17% decrease in the depression domain, 50% decrease in the anger domain, and an 18% decrease in the anxiety domain. Her primarily stressor is related to returning to work. Tearful at the mention of her job. She often reports having no desire to return however feeling trapped as she has not other skills. Finds little enjoyment in her job however stays as the pay is good and the hours are flexible. She has been struggling with the stress of the job which often leads to panic attacks, depression, and feeling of being a failure. Has struggled with attending work consistently for the past 2 years which has resulted in daily panic attacks, avoidance behaviors, and two psychiatric admissions. Stress related to work has also impacted her relationships at home and led to discord further exacerbating her depression. Current plan is for patient to utilize anxiety management plan to help with two exposure goals related to shopping alone. Once complete we will turn our attention to returning to work. Progress Problem #1: Problem Name:: Anxiety Status of Goals:: Obj1- not complete. Pt has developed a Fear Ladder; however has not begun exposure goals. Obj1- not complete. She has developed an anxiety management plan however has not been able to consistently utilize healthy strategies reverting back to avoidance and sleep. Team Recommendations:: Continued education on anxiety cycle and benefits of exposure to anxiety-inducing situations. Continue in IOP to help pt transition back to work which is primary stressor. Problem #2: Problem Name:: Depression Status of Goals:: obj1- not complete; pt started thought log however has not been maintaining or utilizing it to challenge thoughts and identity cognitive distortions. Team Recommendations:: Education and encouragement on thought log benefits. Continue in IOP to help patient transition back to work which is primary stressors
--- NOTE | 2024-07-02 09:00 | BH.SGPN.GN ---
Behaviors/Verbalizations/Mental Status: [] Client alert and oriented, casual appearance. Eye contact fair. Motor activity appropriate. Speech within normal limits. Affect constricted, mood anxious. Thoughts linear, logical, no signs of hallucinations or delusions. Reviewed client's symptom tracker, no risk for suicidal ideation, plan, or intent. Client Response/Progress/Benefit: [] Client responded well to session AEB listening to others and sharing thoughts/feelings. Client reported mental health positive as using healthy coping skills to manage anxiety when she went into [employer]. 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 Client reported current stressor is having her first client at work today, but is thinking she is going to cancel. Client reported she is starting to wonder if she still wants to stay in her current career or if it's time to find something different. Client appeared to benefit from support from peers. Will continue IOP tx to increase consistnet use of healthy coping skills, continue working on exposure goals, and prevent decompensation.
--- NOTE | 2024-07-02 10:15 | BH.SGPN.GN ---
Behaviors/Verbalizations/Mental Status: [] Eye contact is good. Motor activity is appropriate. Appearance is casual. Speech is Appropriate. Mood is anxious. Affect is constricted. Thoughts are linear and logical. No evidence of psychosis. Client Response/Progress/Benefit: [] Pt was an active participant during group discussions and group activities. This portion of group was very psychoeducation heavy and pt was attentive during psychoeducation. Engaged during activity in which they identified which type of foods (i.e. carbs, sugar, salt, fast food, caffeine, etc) they seek out when sad, tired, angry, stressed, anxious, etc. Pt was able to identify the impact that certain foods have on their mental health through group example which was beneficial. Benefited from increased awareness of the connection between nutrition and mental health. Will continue in IOP to prevent decompensation/re-admission to psych unit, stabilize anxiety,, and improve functioning to return to work. Narrative Note: []
--- NOTE | 2024-07-02 11:10 | BH.MDN ---
Multi-Disciplinary Note Note 60-min Individual: Time Started:: 11:10 Date: 07/02/24 Purpose of session/treatment goals addressed:: Reviewed progress on exposure goals. Eye Contact:: Good Motor Activity:: Appropriate Appearance:: Casual Speech:: Appropriate Mood:: Anxious and Depressed Affect:: Congruent Thoughts:: Linear, Logical and No evidence of hallucinations/delusions noted Staff Interventions:: goal setting and other (grief processing. ) Client Response:: Pt reports that she completed her exposure goals. She went grocery shopping by herself at two local stores. She utilized skills on her anxiety management plan and reports increased confidence. It was not as bad as I thought. When asked about her her desire to follow through with client this afternoon at [employer] pt began to cry. I can't do it . I hate my job. She proceeded to identify several tasks associated with her job that are just too much and how she finds no virgilio in any aspect of her job. She was honest and stated that she has hated her job for the past 2 years. 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 When asked about why she continued she states I just have so much time into it Perception that she has to start over and she has no skills for other jobs. Reframed negative thoughts and perception of failure if she pursues another career. Worked with pt to change perspective from failing to excitement of new opportunities. 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 Increased insight these past few weeks. She has worked through areas of her life impacted by anxiety in the past weeks and done extremely well. Increased social engagement, not isolating, increase confidence in anxiety management, and followed through with exposure goals. She struggles when alone without tasks and in the mornings however has reported progress in these areas as well, however today she was honest in that she does not wish to return to her job. Original plan today was to develop a plan to transition back to her job, however she has decided to pursue other career options. Her job is the stressor most strongly impacting her depression, unhealthy coping, panic, anxiety, fear, lack of motivation, and ruminations. Difficulty stepping away however has spoken with who is frustrated however just wants be to have a job. She is actively looking for other opportunities. Time Stopped:: 12:05
--- NOTE | 2024-07-08 09:00 | BH.SGPN.GN ---
Behaviors/Verbalizations/Mental Status: [] ?Pt alert and oriented, casually dressed and groomed. Eye contact good. Motor activity appropriate. Speech within normal limits. Affect congruent, mood anxious, dysthymic. Thoughts linear, logical, no signs of hallucinations or delusions. Reviewed pt?s symptom tracker SI is within baseline, denies plan, or intent as of 07/08/24 Client Response/Progress/Benefit: [] Pt was an active participant in group discussions. Attentive. Able to identify mental health wins including challenging herself to get out of bed and to IOP today despite struggling with increased depression. Stated reminding herself that attending group will be good for her mental health. 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 Noted this is also her stressor as she is grieving the loss of the familiar despite knowing it is the healthier option for her. Reports anxiety about telling her boss she won't be returning today. Benefited from group support, encouragement, and feedback. Will continue in IOP to prevent decompensation, improve daily functioning, and increase mood stability. Narrative Note: []
--- NOTE | 2024-07-08 10:00 | BH.SGPN.GN ---
Behaviors/Verbalizations/Mental Status: []Eye contact is good. Motor activity is appropriate. Appearance is casual. Speech is Appropriate. Mood is anxious and sad. Affect is congruent. Thoughts are linear and logical. No evidence of psychosis. Client Response/Progress/Benefit: [] Pt was an active participate AEB listening attentively to others, participating in group discussions, and taking notes throughout. Participated as the group defined emotion dysregulation and identified ways we can hurt others or sabotage self by not regulating our emotions. Participated with peers to identified ways emotions impact communication which included; shutting down, being irritable/short with others, difficulty focusing/staying on topic, confusion, missing out on opportunities, and being aggressive or dismissive to others. Participated during group activity. Pt did well during the activity and shared was anxious and ?lost? but she did not shut down. Pt benefited from session by gaining an increased understanding on the importance of managing emotions to improve daily functioning. Will continue IOP tx to prevent decompensation, improve daily functioning, and increase ability to regulate anxiety. ? Narrative Note: []
--- NOTE | 2024-07-08 11:30 | BH.MDN_ITS ---
Multi-Disciplinary Note Note 30-min Individual: Time Started:: 11:30 Date: 07/08/24 Purpose of session/treatment goals addressed:: Utilized the session to review symptoms and progress. Eye Contact:: Good Motor Activity:: Appropriate Appearance:: Casual Speech:: Appropriate Mood:: Anxious and Depressed Affect:: Congruent Thoughts:: Linear, Logical and No evidence of hallucinations/delusions noted Staff Interventions:: thought challenging, strengths perspective and other (role-played conversation with employer) Client Response:: According to pt she is going to speak with her boss this afternoon about her decision to leave her current job. Refer to previous notes regarding reasons. 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 It was horrible. It has been challenging for patient to be consistent and make a decision regarding her job, however it appears the negative experience at work on Friday proved to validate her prior decision to seek another career. I just can't do it. She then went on to verbalize numerous reasons she doesn't want to return. Plans to call employer this afternoon to resign and we briefly role- played this conversation. Allowed pt to vent and provided education on change as well as normalized her feelings. Progress Toward Goals/Plan:: Pt is grieving the loss of her career. She also assumes that she will lose the friendships that she has made over the years as well. Challenged these beliefs pointing out that her friendships may change, however she can still maintain them. She cancelled IOP on Friday and Friday due to depression. It was hard to get out of bed. Continues to struggle in the AM when alone and not being held accountable by family or responsibilities. Admits her family made her get here today. She has a few prospects for future careers and has completed a application. Able to see benefits of this decision, however often times convinces herself it is a failure and weakness to not return. However when she does return, like on Friday, she feels miserable, anxio us, and a failure as well. Needs reassurance and reframing of the benefits.
--- NOTE | 2024-07-09 09:00 | BH.SGPN.GN ---
Behaviors/Verbalizations/Mental Status: [] Eye contact is good. Motor activity is appropriate. Appearance is casual. Speech is Appropriate. Mood is depressed. Affect is constricted. Thoughts are linear and logical. No evidence of psychosis. Reviewed daily check in sheet and no reports of suicidal ideations or intent. Client Response/Progress/Benefit: [] Pt participated at times. Attentive. Daily symptom tracker notes 2/5 for depression and /5 for anxiety. Overall mood and functioning are ?better?. Attended a social event despite not wanting too. Utilized skills. She also had the conversation with her boss about resigning form her current job. Despite pressure to stay she was able to remain steadfast in her decision. Despite a handful of anxiety producing situations she reports ? I didn?t panic?. Progress noted. Benefited from group support, encouragement, and feedback. Will continue in IOP to prevent decompensation, stabilize anxiety, and improve functioning. Narrative Note: []
--- NOTE | 2024-07-09 10:15 | BH.SGPN.GN ---
Behaviors/Verbalizations/Mental Status: []Pt alert and oriented, casually dressed and groomed. Eye contact good. Motor activity appropriate. Speech within normal limits. Affect congruent, mood content. Thoughts linear, logical, no signs of hallucinations or delusions. Client Response/Progress/Benefit: [] Pt took notes and contributed to group discussions. Attentive during psychoeducation on growth mindset. Participated during the activity. Interactive group discussion on growth mindset in which group verbalized their current fixed mindsets and how they affect their mental health. Pt shared common fixed mindset thoughts they have. These thoughts lead to feeling and staying stuck, not maintaining boundaries, and not advocating for her needs. Pt stated they have personally struggled with fixed thoughts causing them to stay stuck in anxious patterns. Pt benefited from increased awareness of growth mindset and fixed thoughts and how fixed thoughts impact their mental health. Will continue IOP tx to prevent decompensation, improve daily functioning, and promote mood stability. Narrative Note: []
--- NOTE | 2024-07-09 11:10 | BH.SGPN.GN ---
Behaviors/Verbalizations/Mental Status: []Pt alert and oriented, neatly dressed and groomed. Eye contact good. Motor activity appropriate. Speech within normal limits. Affect congruent, mood anxious. Thoughts linear, logical, no signs of hallucinations or delusions. Client Response/Progress/Benefit: []Pt was an active participant during activity and discussion. Pt did well to remain attentive and participate as group worked on identifying characteristics and benefits of adopting a growth mindset. Worked with fellow participants in reframing the example fixed thoughts into growth mindset thoughts. Pt worked on changing own fixed thought and reframed the thought to ?I will get through my struggles with support and determination.? Pt also wants to work on using dialectical thinking. Pt appeared to benefit from challenging own thoughts and engaging in the activity. Pt will continue IOP tx to promote use of healthy coping skills, increase self-confidence, and improve daily functioning. Narrative Note: []
--- NOTE | 2024-07-13 09:05 | BH.SGPN.GN ---
Behaviors/Verbalizations/Mental Status: [] Eye contact is good. Motor activity is appropriate. Appearance is casual. Speech is Appropriate. Mood is euthymic. Affect is full. Thoughts are linear and logical. No evidence of psychosis. Reviewed daily check in sheet and no reports of suicidal ideations or intent. Client Response/Progress/Benefit: [] Pt participated when prompted. Attentive. Daily symptom tracker notes 10/20 for depression and 08/22 for anxiety. Brief check-in which is baseline for patient. ? I reconciled with my [id number]?. She briefly shared conflict amongst the family which led her to reach out. Overall, the interaction went well. Feeling ?hopeful? today. Left her job last week and is currently ?looking for work options? which is both anxiety producing and exciting. Progress noted. Will continue in IOP to prevent decompensation, decrease anxiety, and increase healthy coping skills. Narrative Note: []
--- NOTE | 2024-07-13 10:15 | BH.SGPN.GN ---
Behaviors/Verbalizations/Mental Status: [] Eye contact is fair. Motor activity is appropriate. Appearance is casual. Speech is Appropriate. Mood is anxious. Affect is congruent. Thoughts are linear and logical. No evidence of psychosis. Client Response/Progress/Benefit: [] Pt engaged participant AEB listening to others, engaging in activity, and providing feedback at times. Attentive during psychoeducation and provided insight into obstacles that impede mental wellness. Pt chose to not share with group current mental health reality and desired mental health reality. Did appear attentive to others that shared. Identified barriers to desired reality include: quitting when things are hard, negative self-talk, and anxious thoughts. Benefited from taking look at current mental health state and obstacles for progress. Pt to continue IOP tx to decrease anxious avoidance, increase use of healthy coping skills, and prevent decompensation.
--- NOTE | 2024-07-13 11:20 | BH.SGPN.GN ---
Behaviors/Verbalizations/Mental Status: []Eye contact is good. Motor activity is appropriate. Appearance is casual. Speech is Appropriate. Mood is euthymic. Affect is congruent. Thoughts are linear and logical. No evidence of psychosis. Client Response/Progress/Benefit: []Pt was an engaged participant in group discussion and activity. Worked with group to identify strategies to help overcome barriers and obstacles to desired reality. Group developed strategies for the common barriers. Identified personal barriers to desired reality and choose one obstacle to work. Pt stated pt wants to work on barrier of giving up by using opposite action. Pt seemed to benefit from increased repertoire of healthy coping skills/strategies to overcome common barriers to moving forward. Pt is to continue IOP to prevent decompensation, increase healthy coping skills, and improve daily functioning. Narrative Note: []
--- NOTE | 2024-07-14 09:00 | BH.SGPN.GN ---
Behaviors/Verbalizations/Mental Status: []Client alert and oriented, casual appearance. Eye contact fair. Motor activity appropriate. Speech within normal limits. Affect congruent, mood anxious. Thoughts linear, logical, no signs of hallucinations or delusions. Reviewed client's symptom tracker, no risk for suicidal ideation, plan, or intent. Client Response/Progress/Benefit: []Client responded well to session AEB listening to others and sharing thoughts/feelings. Client reported mental health positive as using opposite action to attend her son's football games. Client stated he son's football team keeps winning which means she has to go to the game and be around a lot of people. Client reported so far she has been able to effectively manage her anxiety so she can support her son. Client reported feeling stressed about the upcoming holiday. Appeared to benefit from support from peers. Will continue IOP tx to continue working on anxiety exposure goals, challenge distorted thoughts, and prevent decompensation.
--- NOTE | 2024-07-14 10:15 | BH.SGPN.GN ---
Behaviors/Verbalizations/Mental Status: [] Eye contact is good. Motor activity is appropriate. Appearance is casual. Speech is Appropriate. Mood is euthymic. Affect is full. Thoughts are linear and logical. No evidence of psychosis. Client Response/Progress/Benefit: [] Pt was an active participant in group discussions. Attentive during psychoeducation on the 4 communication styles (Passive, Passive-Aggressive, Aggressive, and Assertive) and the obstacles to effective communication. ?Participated during interactive discussions on the benefits and disadvantages to each communication style. Along with peers was able to identify struggles and illusions to effective communication. Pt believes that she is most often passive which results in people-pleasing, inability to get her point across, and not feeling as if she is heard. Benefited from increased understanding of communication styles and how these can impact effective communication. Will continue in IOP tx to prevent decompensation/re-admission to psych unit, decrease anxiety, and improve functioning. Narrative Note: []
--- NOTE | 2024-07-14 11:30 | BH.MDN_ITS ---
Multi-Disciplinary Note Note 30-min Individual: Time Started:: 11:30 Date: 07/14/24 Purpose of session/treatment goals addressed:: Reviewed outcome scores. Discussed discharge Eye Contact:: Good Motor Activity:: Appropriate Appearance:: Neat Speech:: Appropriate Mood:: Euphoric Affect:: Bright Thoughts:: Linear, Logical and No evidence of hallucinations/delusions noted Staff Interventions:: discharge planning and reviewed DSM-5 Client Response:: Presents today in good spirits. She is planning on [employer] tomorrow and is looking forward to it. It is a week out from making the decision to leave her job and while she reports still being nervous about the change overall reports weight lifted off her shoulders. Making this decision as well as implementing other skills has resulted in decreased distress in the past week. Overall since starting IOP reports decreased isolation and is able to leave the house. Completed fear ladder and exposure goals with significantly less anxiety when alone in public. Able to shop by herself. At admission she was sleeping over 14 hours a day. Pt states she is sleeping much less. Panic attacks which were occurring daily have decreased as well stating I don't remember my last panic attack . Risks/Concerns:: No risks or concerns noted. Progress Toward Goals/Plan:: Progress noted. Staff have reported that pt appears more engaged in IOP this week. Staff reports she is smiling and laughing more as well. According to outcome scores pt has shown a 17% decrease in overall symptoms since admission. Pt had a 17% decrease in the depression domain, 50% decrease in the anger domain, and an 18% decrease in the anxiety domain. We discussed discharge and she is agreeable with discharge next week. She is currently linked with psychiatrist however not with counseling. Given a list of referrals and encouraged to review websites. Will discuss again next week. She continues to have anxiety most notably when alone at home and in the AM. Concern this will exacerbate as she still has not job, however she is actively looking. Will continue in IOP to prevent decompensation and maintain gains. Time Stopped:: 11:50
== END 2024-07-17 23:59 ==
LOC: BHIOP 08:00
PROVIDERS: PCP Family Medicine; Referring Provider Psychiatry & Neurology Psychiatry; Visit Provider Psychiatry & Neurology Psychiatry
DX: F41.1 Generalized anxiety disorder (principal); F41.0 Panic disorder [episodic paroxysmal anxiety]; F33.2 Major depressive disorder, recurrent severe without psychotic features; F10.91 Alcohol use, unspecified, in remission
CPT/HCPCS: S9480; 90832; 90834; 90837; 90853

== ENCOUNTER 2024-07-19 07:06 | Outpatient (RCR) | payer OTHER, SELFPAY ==
--- NOTE | 2024-07-19 09:05 | BH.SGPN.GN ---
Behaviors/Verbalizations/Mental Status: [] Pt alert and oriented, casually dressed and groomed. Eye contact good. Motor activity appropriate. Speech within normal limits. Affect congruent, mood content. Thoughts linear, logical, no signs of hallucinations or delusions. Reviewed pt?s symptom tracker, no risk for suicidal ideation, plan, or intent 07/19/24 Client Response/Progress/Benefit: [] Pt was an active participant in group discussions. Attentive. Able to identify mental health wins including successfully attending her son's football game and talking with fellow parents rather than completely avoiding them as she has in the past. Additional win noted as doing better to recognize warning signs that she is beginning to get overwhelmed in social situations and allowing herself to take breaks as a result. Stressor noted as continuing to look for a job but reports trying to be realistic with herself that this process will take some time and not duval herself. Benefited from group support, encouragement, and feedback. Will continue in IOP to prevent decompensation, promote mood stability, and continue to improve use of grounding skills. Narrative Note: []
--- NOTE | 2024-07-19 10:15 | BH.SGPN.GN ---
Behaviors/Verbalizations/Mental Status: [] Client alert and oriented, neatly dressed and groomed. Eye contact good. Motor activity appropriate. Speech within normal limits. Affect flat, mood euthymic. Thoughts linear, logical, no signs of hallucinations or delusions. Client Response/Progress/Benefit: [] Client was an semi-active participant in group discussions. Attentive during psychoeducation on 4 types of conflict styles (Competing, Collaborating, Avoiding, and Accommodating). Worked with group to define conflict and identify how conflict is helpful. With peers identified barriers to addressing or managing conflict which included:trauma, body language, and cognitive distortions. Client believes they use avoidant style of conflict resolution. Client shared this style leads to their resolution being dependent on others. Benefited from group due to increase insight and awareness of benefits to conflict, conflict styles, and obstacles to managing conflict. Will continue in IOP to prevent decompensation, gain healthier core beliefs, and increase functioning. Narrative Note: []
--- NOTE | 2024-07-19 11:20 | BH.SGPN.GN ---
Behaviors/Verbalizations/Mental Status: [] Client alert and oriented, neatly dressed and groomed. Eye contact good. Motor activity appropriate. Speech within normal limits. Affect flat, mood euthymic. Thoughts linear, logical, no signs of hallucinations or delusions. Client Response/Progress/Benefit: [] Client engaged in session AEB contributing to discussion and engaging in small group. Attentive during discussion on strategies for more effectively managing conflict in personal life. Client participated in small group for activity and did well collaborating. Client given handout on DEAR MAN with strategies to to communicate effectively in conflict. Client indicated what needs improvement in conflict for them to work on is clearly state the issue. Appeared to benefit from gaining strategies to help client better manage conflict. Will continue IOP tx to increase self image, increase overall functioning, and increase self-care. Narrative Note: []
--- NOTE | 2024-07-21 09:00 | BH.SGPN.GN ---
Behaviors/Verbalizations/Mental Status: [] Client alert and oriented, casual appearance. Eye contact good. Motor activity appropriate. Speech within normal limits. Affect congruent, mood slightly anxious and positive. Thoughts linear, logical, no signs of hallucinations or delusions. Reviewed client's symptom tracker, no risk for suicidal ideation, plan, or intent. Client Response/Progress/Benefit: [] Client responded well to session AEB listening to others and sharing thoughts/feelings. Per daily symptom tracker client notes a 0/5 for depression, with 5 being severe, and a 2/5 for anxiety. Client reported mental positive as feeling excited about a job interview tomorrow. 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 Client stated she is not nervous about this interview and thinks moving into a job that focuses on helping others will be a good move for her. Client reported additional mental positive as starting to make snacks for her son's football team this Friday. Client stated current stressor as feeling anxious and sad about needing to go leaf size picker all her stuff from her previous job at the [employer] but not sure she is ready to feel this feelings associated with not going back. Client did not feeling positive this morning despite not getting any sleep yesterday. Client stated she is not sure why she did not sleep and noted this is not normal for her. Appeared to benefit from support from peers. Will continue IOP tx to promote utilization of healthy coping skills, continue to work on anxiety exposure goals, and prevent decompensation. Narrative Note: [] Behaviors/Verbalizations/Mental Status: [] Client alert and oriented, casual appearance. Eye contact good. Motor activity appropriate. Speech within normal limits. Affect congruent, mood slightly anxious and positive. Thoughts linear, logical, no signs of hallucinations or delusions. Reviewed client's symptom tracker, no risk for suicidal ideation, plan, or intent. Client Response/Progress/Benefit: [] Client responded well to session AEB listening to others and sharing thoughts/feelings. Per daily symptom tracker client notes a 0/5 for depression, with 5 being severe, and a 2/5 for anxiety. Client reported mental positive as feeling excited about a job interview tomorrow. 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 Client stated she is not nervous about this interview and thinks moving into a job that focuses on helping others will be a good move for her. Client reported additional mental positive as starting to make snacks for her son's football team this Friday. Client stated current stressor as feeling anxious and sad about needing to go leaf size picker all her stuff from her previous job at the [employer] but not sure she is ready to feel this feelings associated with not going back. Client did not feeling positive this morning despite not getting any sleep yesterday. Client stated she is not sure why she did not sleep and noted this is not normal for her. Appeared to benefit from support from peers. Will continue IOP tx to promote utilization of healthy coping skills, continue to work on anxiety exposure goals, and prevent decompensation. Narrative Note: []
--- NOTE | 2024-07-21 10:10 | BH.SGPN.GN ---
Behaviors/Verbalizations/Mental Status: [] Pt alert and oriented, casually dressed and groomed. Eye contact good. Motor activity appropriate. Speech within normal limits. Affect congruent, mood euthymic. Thoughts linear, logical, no signs of hallucinations or delusions. Client Response/Progress/Benefit: [] Pt participated during small group discussions. Attentive during psychoeducation on self-sabotage and the reasons people self-sabotage, and impacts on mental health. Showed engagement during small group discussions and helped group identify different types of self-sabotage. Noted she struggles with procrastination, perfectionism, and not following through which often results in pt isolating or disappointing herself. Seemed to benefit from gaining awareness about the different ways people self-sabotage and identifying their own. Pt to continue IOP tx to prevent decompensation, stabilize mood, increase healthy coping, and improve functioning. Narrative Note: []
--- NOTE | 2024-07-21 11:05 | BH.SGPN.GN ---
Behaviors/Verbalizations/Mental Status: []Pt alert and oriented, neatly dressed and groomed. Eye contact good. Motor activity appropriate. Speech within normal limits. Affect congruent, mood euthymic. Thoughts linear, logical, no signs of hallucinations or delusions. Client Response/Progress/Benefit: []Pt responded well to session, attentive and providing input. Pt worked on her mental health wellness garden picture and discussed things that contribute to mental wellness in his life. With peers, pt discussed things that would sabotage one's mental health wellness and added it to the garden metaphor. Pt identified things pt personally does to sabotage as not taking medication, not using self-care, and people pleasing. Pt attentive during psychoeducation on ways to reduce self-sabotage and pt selected using stop, pause, and frame as the skill that could help pt reduce self-sabotaging behaviors. Pt appeared to benefit from learning skills and gaining awareness of self-sabotaging behaviors. Pt will continue IOP tx to reinforce healthy coping skills, establish aftercare, and further improve mood. Narrative Note: []
--- NOTE | 2024-07-22 09:00 | BH.SGPN.GN ---
Behaviors/Verbalizations/Mental Status: [] Eye contact is good. Motor activity is appropriate. Appearance is casual. Speech is Appropriate. Mood is euthymic. Affect is full. Thoughts are linear and logical. No evidence of psychosis. Reviewed daily check in sheet and no reports of suicidal ideations or intent. Client Response/Progress/Benefit: [] Pt was an active participant in group discussions. Attentive. Daily symptom tracker notes 09/22 for anxiety. Shared with the group that today is her last day in IOP and she is set to discharge successfully. Overall believes that IOP was very helpful. At this point she reports that she is functioning better, sleeping less, utilizing skills consistently, and has made some difficulty life decisions while in IOP. Smiling stating that she has a job interview this afternoon. Is nervous however able to normalize that emotion. Group helped her reframe the situation and her anxious thoughts which was beneficial. Her aftercare is dano done. She has follow-up with psychiatry however didn't follow through with setting up counseling I've been procrastinating. Denies any obstacles to setting up appointment I will do it today. Will be discharged today. Narrative Note: []
--- NOTE | 2024-07-22 10:10 | BH.SGPN.GN ---
Behaviors/Verbalizations/Mental Status: [] Pt alert and oriented, casually dressed and groomed. Eye contact good. Motor activity appropriate. Speech within normal limits. Affect congruent, mood euthymic. Thoughts linear, logical, no signs of hallucinations or delusions. Client Response/Progress/Benefit: [] Pt participated during small group discussions. Attentive during psychoeducation about defense mechanisms. Showed engagement during small group discussions and helped group identify which defense mechanisms were maladaptive, adaptive, or ?somewhere in the [place].? Noted she struggles with anticipation and humor defense mechanisms. Pt worked with small group on identifying how each defense mechanism can impact mental health and gave examples. ?Seemed to benefit from gaining awareness about the different defense mechanisms. Pt to has shown treatment progress throughout the program and will discharge from [facility] today.
--- NOTE | 2024-07-22 11:15 | BH.SGPN.GN ---
Behaviors/Verbalizations/Mental Status: []Pt alert and oriented, casually dressed and groomed. Eye contact good. Motor activity appropriate. Speech within normal limits. Affect congruent, mood content. Thoughts linear, logical, no signs of hallucinations or delusions. Client Response/Progress/Benefit: []Pt responded well to session, participating in activity and small group discussion. Group reviewed the rest of the defense mechanisms and discussed how these are adaptive, maladaptive, or somewhere in the [place]. Pt's defense mechanisms included displacement, suppression, humor. Pt shared wanting to work on her displacement as pt recognizes she takes things out on her spouse. Pt listened to negotiator sales teach different skills to help pt?s cope with or change their defense mechanisms. Pt appeared to benefit from gaining insight to the different defense mechanisms and learning coping skills. Pt will continue outpatient tx and d/c from [facility] today. Narrative Note: []
--- NOTE | 2024-07-22 11:27 | BH.DS_ITS ---
Discharge Summary Demographics Date of Admission:: 06/07/24 Discharge Date: 07/22/24 Presenting Problems at Admission:: Pt is a 38 year old female. Hx of Generalized Anxiety Disorder, Panic Disorder, Major Depressive Disorder, and Alcohol Use Disorder (full remission for 4 years). Pt reports two psychiatric admissions in the summer of 2023 for anxiety and panic attacks impacting her ability to function. Self-referred to PHP/IOP due to worsening anxiety/panic which has resulted in her inability to work. Pt is currently on leave from her full-time job. Exacerbation of symptoms in the past 4 months w/o a specific triggers. Pt has been unable to work and complete daily tasks. She reports sleeping over 10 hours a day to cope and escape negative thoughts. Daily panic attacks. Pt very rarely leaves the house except to attend her children's sporting events. Fearful of having a panic attacks while in public. While at home she isolates in her room and sleeps throughout the day. According to patient she wakes up with intense anxiety and overwhelming negative thoughts which makes leaving her bed difficult. Endorses guilt, racing thoughts, hopelessness, poor concentration, worthlessness, low energy, low motivation, and believes herself to be a burden on her family due to her mental health. Denies suicidal ideations, plan, or intent. No history of attempts. Denies HI or psychosis. Denies current substance use (4 years sober). Currently linked with psychiatrist and is medication compliant, however limited benefit. She discontinued counseling several months ago believing that it was not effective. Discharge Diagnoses:: 1. Generalized anxiety disorder 2. Panic disorder 3. Major depressive disorder, recurrent, severe without psychosis 4. Alcohol use disorder in remission for 4 years Reason for Discharge:: Completed treatment plan goals. No longer meets criteria for IOP level of care. Treatment Progress During Treatment & Response: Consistent attendance. While pt was quiet she did engage at times and was noted to be attentive AEB note-taking in groups. At admission she was sleeping over 14 hours a day. Pt states she is sleeping much less. Panic attacks which were occurring daily have decreased as well stating I don't remember my last panic attack . Staff have reported that pt appears more engaged in IOP for the past 2 weeks. Staff reports she is smiling and laughing more as well. According to outcome scores pt has shown a 51% decrease in overall symptoms since admission. Pt had a 50% decrease in the depression domain, 100% decrease in the anger domain (denies any anger issues in the past 2 weeks), and a 36% decrease in the anxiety domain. Should also be noted that outcomes show a decrease in somatic concerns (aches/pains) as well as intrusive thoughts/urges. Made decision to leave her job [employer] through IOP which was noted to be impacting her mental health significantly. Navigating this change was challenging and while initially was distressing she was able to utilize skills to manage this change. Clearly her inability to leave her job was contributing to her overall mental health. She has worked through areas of her life impacted by anxiety in the past weeks and done extremely well. Increased social engagement, not isolating, increase confidence in anxiety management, and followed through with exposure goals. She also completed an individualized anxiety management plan. Issues Still to be Addressed:: Continues to report depression, negative automatic thoughts, and anxiety. Has been consistent with healthy coping strategies however when stressed, overwhelmed, or alone continues to report struggles with urges to resort to sleeping to escape. Primary stressor is finding a new job/career. She has interview today and is anxious I've never had an interview before. Discharge Recommendations/Instructions:: Recommended to continue with outpatient psychiatry. She is linked with Dr. Yuen at [facility] with appointment upcoming this month. She did not follow through with making an appointment for outpatient counseling. She accepts responsibility for this stating I will do it today I promise. Strongly encouraged her to get linked with counseling and pointed out several benefits. No reason to delay discharge due to this. Discharge Handout
== END 2024-07-22 12:06 | disposition home or self-care (01) ==
LOC: BHIOP 07:06
PROVIDERS: PCP Family Medicine; Referring Provider Psychiatry & Neurology Psychiatry; Visit Provider Psychiatry & Neurology Psychiatry
DX: F41.1 Generalized anxiety disorder (principal); F41.0 Panic disorder [episodic paroxysmal anxiety]; F33.2 Major depressive disorder, recurrent severe without psychotic features; F10.91 Alcohol use, unspecified, in remission
CPT/HCPCS: S9480; 90853

== ENCOUNTER → 2024-10-12 | Outpatient (CLI) | payer OTHER, SELFPAY ==
[2024-10-13 02:08] LABS: Estradiol 26.1 pg/mL; Thyroid Stim Hormone (TSH) 0.474 uIU/mL (0.300-4.200)
[2024-10-14 14:08] LABS: Thyroglobulin Antibody < 1.0 IU/mL (0.0-0.9); Thyroid Peroxidase AB < 9 IU/mL (0-34)
== END | disposition home or self-care (01) ==
LOC: BWCLAB 16:04
PROVIDERS: PCP Family Medicine; Referring Provider Nurse Practitioner Women's Health; Visit Provider Nurse Practitioner Women's Health
DX: N91.2 Amenorrhea, unspecified (principal)
CPT/HCPCS: 36415; 82670; 83001; 84439; 84443; 86376; 86800